=== PATIENT | male | born 1950 | race Caucasian/White ===

== ENCOUNTER 2017-09-22 20:05 | Inpatient (IN) | payer OTHER ==
[~2017-09-22] VITALS: Ht 180.3 cm; Wt 97.5 kg
[~2017-09-22 20:05] MED LIST: GABAPENTIN 100100 MG PO; HYDROCODONE-AP1 EACH PO; HYDROCODONE-APA1 TA1; IBUPROFEN 800800 M1 PO; MICARDIS 80 MG80 MG PO
[2017-09-22 20:13] VITALS: BP 153/68
[2017-09-22 20:47] LABS: HEMOGLOBIN 14.5 gm/dL (14.0-18.0); MCH 32.9 pg (26.0-34.0); MCHC 35.4 g/dL (28.0-37.0); MPV 7.6 fl. (7.2-11.1); NUCLEATED RBCS 0 /100WBC; PLATELET COUNT* 231 thou/uL (150-400); RBC 4.41 mil/uL (4.50-6.00); RDW-CV 13.9 % (10.5-14.5); WBC 10.4 thou/uL (4.0-11.0)
[2017-09-22 20:54] LABS: CALCIUM 9.2 mg/dL (8.5-10.1); CREATININE 0.9 mg/dL (0.6-1.3); POTASSIUM 3.6 mmol/L (3.5-5.1)
[2017-09-22 20:59] LABS: ALBUMIN 3.7 g/dL (3.4-5.0); TOTAL BILIRUBIN 0.8 mg/dL (<0.1-1.0); TOTAL PROTEIN 7.6 g/dL (6.4-8.2)
[2017-09-22 21:02] LABS: ABSOLUTE LYMPHOCYTES 0.4 thou/uL (0.8-5.3); ABSOLUTE MONOCYTES 1.1 thou/uL (0.0-1.2); ABSOLUTE NEUTROPHILS 8.8 thou/uL (1.6-8.1); ATYPICAL LYMPHS 1 %; PLATELET ESTIMATE ADEQUATE
[2017-09-22 21:03] LABS: INFLUENZA A ANTIGEN None Detected (None Detect); INFLUENZA B ANTIGEN None Detected (None Detect)
[2017-09-22 22:45] VITALS: BP 131/56
[2017-09-22 23:00] VITALS: BP 141/53
--- NOTE | 2017-09-23 02:54 | NUR ---
2300: ALERT AND ORIENTED X 4 MALE PATIENT TO BED 103 BY CART FROM ER ACCOMPANIED BY IN STABLE CONDITION. INDEPENDENT FROM CART TO BED. USED URINAL INDEPENDENTLY ON ARRIVAL. VITAL SIGNS STABLE ON O2 AT 2L/MIN. NOTED DRESSING LLE WITH COMPRESSIN SOCK FOR CHRONIC WOUND. PATIENT DECLINES AT THIS TIME TO HAVE DRESSING REMOVED FOR PHOTO. ADMISSION ROUTINES IN PROGRESS. CONTINUE TO MONITOR.
--- NOTE | 2017-09-23 04:22 | NUR ---
PATIENT HAS REMAINED ALERT AND ORIENTED X 4 THROUGHOUT THE SHIFT AND RESTING QUIETLY ON HOURLY ROUNDS. PATIENT HAS CHRONIC LEFT LEG PAIN. MEDICATED Q2H WITH SOME GOOD EFFECT. IVF'S AND MEDS PER ORDERS. CONTINUE TO MONITOR.
[2017-09-23 08:04] VITALS: BP 124/50
[2017-09-23 16:00] VITALS: BP 128/48
--- NOTE | 2017-09-23 16:19 | NUR ---
SPOKE WITH PT.BRIEFLY. JOSÉ, WOUND CARE NURSE CAME INTO ASSESS WOUND. PT.SAID HE LIVES WITH HIS . SHE CAN ASSIST HIM IF NEEDED BUT HE IS USUALLY INDEPENDENT. HE HAS A CANE AND WALKER AT HOME. NO HOME O2. HE MAY BE INTERESTED IN COMING TO OUR WOUND CARE CENTER TO SEE FOR CHRONIC LE WOUND. (SEE WOUND CARE NOTE).
--- NOTE | 2017-09-23 16:36 | NUR ---
WOUND NURSE: PATIENT SEEN TO ADDRESS VENOUS LEG ULCER PRESENT ON THE LLE. THIS WOUND PRESENTED WITH 50% SLOUGH AND 50% RED GRANULATION TISSUE IN THE WOUND BED, MODERATE AMOUNT OF YELLOW [place] DRAINAGE. WOUND WAS CLEANSED WI SOAP AND WATER, RINSED WITH WATER, THEN PATTED DRY. APPLIED AQUACEL AG UDNER OPTIFOAM GENTLE, THEN REAPPLIED PATIENT'S OWN COMPRESSION STOCKING. PATIENT WAS ENCOURAGED TO SEEK WOUND CARE CLINIC ASSISTANCE WITH THIS WOUND UPON DISCHARGE. WOUND MEASURED: 9.0 X 2.5 X 0.3 CM.
--- NOTE | 2017-09-23 17:09 | NUR ---
ASSUMED CARE OF PATIENT AFTER MORNING REPORT. ALERT AND ORIENTED X4. ASSESSMENT COMPLETED AND CHARTED. VSS ON 2 LITERS. PATIENT HAS HAD NO COMPLAINTS OF NAUSEA THIS SHIFT. PAIN HAS BEEN MANAGED WITH MEDICATION. WOUND NURSE CHANGED DRESSING ON LEFT LOWER EXTREMITY AND PICTURE DOCUMENTATION WAS RECORDED. HOURLY ROUNDS HAVE BEEN MAINTAINED. CALL LIGHT IS WITHIN REACH. NURSING WILL CONTINUE TO MONITOR.
[2017-09-23 20:15] VITALS: BP 134/48
[2017-09-23 22:58] LABS: AMP/METHAMP Negative (Negative); BARBITURATES Negative (Negative); BENZODIAZEPINES Negative (Negative); COCAINE Negative (Negative); METHADONE Negative (Negative); OPIATES POSITIVE (Negative); PCP Negative (Negative); THC Negative (Negative)
[2017-09-24 00:24] VITALS: BP 105/51
[2017-09-24 04:26] LABS: ABSOLUTE LYMPHOCYTES 0.7 thou/uL (0.8-5.3); ABSOLUTE MONOCYTES 0.8 thou/uL (0.0-1.2); ABSOLUTE NEUTROPHILS 12.6 thou/uL (1.6-8.1); BASOPHILS 0.1 %; HEMATOCRIT 37.3 % (42.0-52.0); HEMOGLOBIN 12.8 gm/dL (14.0-18.0); LYMPHOCYTES 5.2 %; MCH 32.4 pg (26.0-34.0); MCHC 34.3 g/dL (28.0-37.0); MCV 94.3 fL (80.0-100.0); MONOCYTES 5.8 %; NUCLEATED RBCS 0 /100WBC; PLATELET COUNT* 216 thou/uL (150-400); POLYS 88.9 %; RBC 3.96 mil/uL (4.50-6.00); RDW-CV 14.4 % (10.5-14.5); WBC 14.1 thou/uL (4.0-11.0)
[2017-09-24 04:37] LABS: CALCIUM 8.4 mg/dL (8.5-10.1); CREATININE 0.9 mg/dL (0.6-1.3); POTASSIUM 4.1 mmol/L (3.5-5.1)
--- NOTE | 2017-09-24 05:11 | NUR ---
PATIENT HAS REMAINED ALERT AND ORIENTED X 4 THROUGHOUT THE SHIFT AND RESTING QUIETLY ON HOURLY ROUNDS. MEDICATED FOR LLE WOUND PAIN Q4H TO GOOD EFFECT. IVF'S AND MEDS PER ORDERS. REMAINS ON O2 AT 2L/MIN WITH RT TREATMENTS. OCCASIONAL NON-PRODUCTIVE COUGH NOTED. AFEBRILE. PULMONARY CONSULT PENDING. CONTINUE TO MONITOR.
[2017-09-24 08:11] VITALS: BP 116/60
[2017-09-24 16:19] VITALS: BP 121/54
--- NOTE | 2017-09-24 18:30 | NUR ---
ASSUMED CARE OF PATIENT AFTER MORNING REPORT. ALERT AND ORIENTED X4. ASSESSMENT COMPLETED AND CHARTED. VSS ON 1.5 LITERS 02. PATIENT HAS HAD NO COMPLAINTS OF NAUSEA THIS SHIFT. PAIN HAS BEEN MANAGED WITH PAIN MEDICATION. PATIENT TITRATED OFF OF OXYGEN AND IS MAINTAINING OXYGEN SATURATION IN THE LOW 90'S. PATIENT RESTED COMFORTABLY IN BED THROUGHOUT SHIFT. EAGER TO DISCHEGE HOME. PATIENT WILL BE NPO AFTER MIDNIGHT FOR AN ABDOMINAL ULTRASOUND TOMORROW. HOURLY ROUNDS HAVE BEEN MAINTAINED. CALL LIGHT IS WITHIN REACH. NURSING WILL CONTINUE TO MONITOR.
[2017-09-24 20:00] VITALS: BP 150/53
[2017-09-24 23:51] VITALS: BP 111/54
[2017-09-25 04:19] LABS: HEMATOCRIT 36.9 % (42.0-52.0); HEMOGLOBIN 12.7 gm/dL (14.0-18.0); MCH 32.3 pg (26.0-34.0); MCHC 34.3 g/dL (28.0-37.0); MCV 94.2 fL (80.0-100.0); MPV 8.4 fl. (7.2-11.1); RBC 3.91 mil/uL (4.50-6.00); RDW-CV 14.2 % (10.5-14.5); WBC 12.9 thou/uL (4.0-11.0)
[2017-09-25 04:41] LABS: ALBUMIN 2.8 g/dL (3.4-5.0); CALCIUM 8.4 mg/dL (8.5-10.1); CREATININE 0.8 mg/dL (0.6-1.3); MAGNESIUM 2.5 mg/dL (1.8-2.4); POTASSIUM 4.3 mmol/L (3.5-5.1); TOTAL BILIRUBIN 0.4 mg/dL (<0.1-1.0); TOTAL PROTEIN 6.1 g/dL (6.4-8.2)
--- NOTE | 2017-09-25 05:01 | NUR ---
ASSUMED CARE OF PATIENT AT APPROXIMATELY 1999. PATIENT A/O X 4 AND VSS. PATIENT HAS EXPRESSED CONCERNS THAT HE WILL NOT BE ABLE TO GO HOME RELATIVELY EARLY TODAY. HE IS CONCERNED THAT HIS ABDOMINAL US WILL DELAY HIS DISCHARGE. PATIENT HAS SEVERAL RESPONSIBILITIES AT HOME THAT REQUIRE HIS ATTENTION AND HE VERBALIZES THAT HE IS NOT HAVING PAIN SIMILAR TO THAT WITH KIDNEY STONES. PATIENT STATES THAT HE WILL LEAVE, AMA IF NECESSARY. PATIENT CONTINUES TO BE ON 2L O2 WITH OXYGEN SATS GREATER THAN 93%. PATIENT TO DO DRESSING CHANGE TODAY (09/25/17), PER HIS PREFERENCE, ON WOUND TO LEFT LEG/ANKLE AREA. PATIENT CONTINUES TO WEAR A MASK, ALTHOUGH NOT ON ANY ISOLATION PRECAUTIONS. NURSING TO FOLLOW-UP NECESSARY. ALL FALL PRECAUTIONS IN PLACE, INCLUDING CALL LIGHT WITHIN REACH. WILL CONTINUE TO MONITOR CLOSELY.
[2017-09-25 07:58] VITALS: BP 125/56
[2017-09-25 11:19] VITALS: BP 125/56
[2017-09-25] MEDS ORDERED: TAMIFLU75 MG PO (11:25)
[2017-09-25] MEDS ORDERED: LEVAQUIN 500 M500 M2 PO (11:26)
[2017-09-25] MEDS ORDERED: PREDNISONE 20 M20 MG PO (11:28)
[2017-09-25] MEDS ORDERED: PROTONIX40 M1 PO (11:29)
--- NOTE | 2017-09-25 11:56 | NUR ---
ASSUMED CARE OF PATIENT AFTER MORNING REPORT. ALERT AND ORIENTED X4. ASSESSMENT COMPLETED AND CHARTED. VSS ON ROOM AIR. PATIENT HAD NO COMPLAINTS OF NAUSEA THIS SHIFT. PAIN HAS BEEN MANAGED WITH PAIN MEDICATION. PATIENTS PULMONARY STATUS HAS BEEN IMPROVING AND HAS BEEN RELEASED BY PULMONARY. PATIENT DISCHARGED AT 1150 WITH FAMILY. ALL PERSONAL BELONGINGS LEFT WITH PATIENT. PRESCRIPTIONS AND DISCHARGE INFORMATION SENT WITH PATIENT UPON DISCHARGE.
--- NOTE | 2017-09-26 09:42 | CON ---
[address] [address] CONSULTATION Name: CARLOTTA PIEDRA Room: [address] IN .R.#: [id number] Admission: 09/22/17 Attend Phys: Omar Crook Discharge: 09/25/17 Date of : 54 Report #: [id number] THIS REPORT FOR: //name// CC: Jeremiah Samuels DATE OF SERVICE: 09/24/[address] Love. INDICATION FOR CONSULTATION: Lung nodule. HISTORY OF PRESENT ILLNESS: This is a 67-year-old gentleman, past medical history consistent with COPD. The patient has not previously been diagnosed. The patient is an active smoker. At this time, the patient is here with a viral illness. He has had increase in coughing as well as nasal discharge. He has also had bodyaches. He also had low-grade elevation in temperature to 37.4 degrees Celsius when he initially arrived. The patient had a CTA chest performed on initial presentation, which does show lung nodule which is the reason for this consultation. At this time, the patient reports improvement in his cough as well as nasal discharge compared with his baseline; however, continues to have these complaints. He has some shortness of breath on exertion as well. However, is not complaining of shortness of breath at rest. He is no longer febrile. There is no swelling of lower extremities. There is no calf pain. He is not complaining of nausea, vomiting or abdominal pain. The patient does have chronic leg wounds and has had chronic pain issues. He has no chest pain. REVIEW OF SYSTEMS: This is as discussed above in history of present illness. PAST MEDICAL HISTORY: COPD by clinical history, not previously diagnosed; hypertension. The patient also does take p.r.n. narcotics for pain at home, ankle surgeries, tonsillectomy. There are other orthopedic surgeries noted in his admission H and P reviewed. He had a vein closed for his left leg, hepatitis C. SOCIAL HISTORY: Active smoker, 1 pack a day, several decades. No known history of heavy alcohol use or illegal drug use. CURRENT MEDICATIONS: List in [employer] reviewed. ALLERGIES: No known drug allergies. PHYSICAL EXAMINATION: GENERAL: He is alert, awake and oriented. VITAL SIGNS: In the records. These are reviewed. [place] [address] CONSULTATION Name: PIEDRA,CARLOTTA Nelson Room: [address]#: [id number] Admission: 09/22/17 Attend Phys: Omar Crook Discharge: 09/25/17 Date of : 54 Report #: [id number] 93%. He is on 1.5 liters nasal cannula. The patient is not on supplemental oxygen at home. NECK: Does not show raised JVP. CHEST: Breath sounds are bilaterally equal, decreased. No added sounds. HEART: Regular, no murmur. ABDOMEN: Soft and nontender. EXTREMITIES: Lower extremities, no edema, no calf tenderness. LABORATORY DATA: The patient's CT chest, chest x-ray as well as [facility] and this is reviewed. ASSESSMENT AND PLAN: 1. Lung nodule. There is a 1.5 cm noncalcified lung nodule noted in the left lower lobe. Certainly this raises the possibility of a malignancy and may require a biopsy. I recommend scheduling an outpatient PET scan at [facility] to evaluate this further. The patient reported that he has had CT chest performed at this hospital previously; however, I do not see record of any previous CAT scan of the chest performed at this hospital for this patient. He is also reported that he has had CAT scans done at another facility, possibly [facility], however, I do not have verification at this time. There is a previous CT of the abdomen and pelvis performed in this hospital in 2014. This lung nodule is not mentioned on the CT and likely the previous CT does not go high enough to detect this lung nodule. In summary, therefore, unless there is previous documentation of long-term stability of this nodule by CT chest, I recommend that we should do a PET scan as an outpatient to evaluate this further as certainly this could be a malignancy and may require a biopsy. 2. Viral respiratory tract infection/possible influenza. Certainly various viruses could cause this illness. The possibility of influenza still does need to be considered despite negative influenza swab and therefore, I recommend that we proceed with a viral respiratory panel. Meanwhile, I do recommend that the patient be placed in droplet isolation and started on Tamiflu. 3. Chronic obstructive pulmonary disease exacerbation. I agree with current therapy. Considering that the patient still is requiring supplemental oxygen and he has not previously been diagnosed with chronic obstructive pulmonary disease or been on oxygen as well as the fact that he still has some findings on examination consistent with bronchospasm, I favor keeping him in the hospital today with possible discharge tomorrow if he continues to improve. The patient, however, really wants to be discharged today. Therefore, I would go ahead and do an ambulatory pulse ox today and then see where we stand. I also suggest obtaining outpatient pulmonary function test. <ELECTRONICALLY SIGNED> By: Vi Christie MD 09/26/17 0942 1316 184MD sonya Aleman
== END 2017-09-25 11:50 | disposition home or self-care (01) | DRG 871 ==
LOC: M.ERS 20:05 → M.TBA-ER 22:12 → M.ORTHSURG 22:12
PROVIDERS: Family Medicine; Internal Medicine; Physician Assistant; ADMIT Internal Medicine
DX: A41.89 Other specified sepsis (principal); J96.01 Acute respiratory failure with hypoxia; J44.0 Chronic obstructive pulmonary disease with (acute) lower respiratory infection; J44.1 Chronic obstructive pulmonary disease with (acute) exacerbation; B34.9 Viral infection, unspecified; J20.9 Acute bronchitis, unspecified; I10 Essential (primary) hypertension; F17.210 Nicotine dependence, cigarettes, uncomplicated; R91.1 Solitary pulmonary nodule; M19.90 Unspecified osteoarthritis, unspecified site; G89.29 Other chronic pain; Z90.49 Acquired absence of other specified parts of digestive tract; Z89.9 Acquired absence of limb, unspecified

== ENCOUNTER → 2017-10-12 | Outpatient (CLI) | payer OTHER ==
[~2017-10-12] MED LIST changes: +ASPIR 8181 MG PO; +AZITHROMYCIN 2250 MG PO; +CEFDINIR300 MG PO; +DILTIAZEM 24HR180 M1 PO; +DILTIAZEM 24HR360 M1 PO; +ELIQUIS5 MG PO; +FLECAINIDE ACET50 M1 PO; +LEVAQUIN 500 M500 M2 PO; +LIDOPATCH1 EACH TOP; +MUCINEX600 MG PO; +PREDNISONE 10 M10 M1 PO; +PREDNISONE 20 M20 MG PO; +PROTONIX40 M1 PO; +TAMIFLU75 MG PO; +TRAMADOL 50 MG50 MG PO
[2017-10-12 09:34] LABS: CREATININE 0.9 mg/dL (0.6-1.3); POTASSIUM 3.8 mmol/L (3.5-5.1)
== END ==
LOC: M.WC 01:22
PROVIDERS: Surgery
DX: I70.243 Atherosclerosis of native arteries of left leg with ulceration of ankle (principal); I87.312 Chronic venous hypertension (idiopathic) with ulcer of left lower extremity; L97.821 Non-pressure chronic ulcer of other part of left lower leg limited to breakdown of skin; J44.9 Chronic obstructive pulmonary disease, unspecified; F17.210 Nicotine dependence, cigarettes, uncomplicated; Z86.19 Personal history of other infectious and parasitic diseases

== ENCOUNTER → 2017-10-26 | Outpatient (CLI) | payer OTHER | LOC: M.WC 01:44 | DX: I87.2 Venous insufficiency (chronic) (peripheral) (principal); L97.821 Non-pressure chronic ulcer of other part of left lower leg limited to breakdown of skin; J44.9 Chronic obstructive pulmonary disease, unspecified; I10 Essential (primary) hypertension; F17.200 Nicotine dependence, unspecified, uncomplicated ==

== ENCOUNTER → 2017-11-02 | Outpatient (CLI) | payer OTHER | LOC: M.WC 01:34 | DX: I70.243 Atherosclerosis of native arteries of left leg with ulceration of ankle (principal); L97.821 Non-pressure chronic ulcer of other part of left lower leg limited to breakdown of skin; J44.9 Chronic obstructive pulmonary disease, unspecified; I10 Essential (primary) hypertension; F17.200 Nicotine dependence, unspecified, uncomplicated ==

== ENCOUNTER → 2017-11-09 | Outpatient (CLI) | payer OTHER | LOC: M.WC 03:21 | DX: L97.821 Non-pressure chronic ulcer of other part of left lower leg limited to breakdown of skin (principal); I87.312 Chronic venous hypertension (idiopathic) with ulcer of left lower extremity; L97.321 Non-pressure chronic ulcer of left ankle limited to breakdown of skin; I70.243 Atherosclerosis of native arteries of left leg with ulceration of ankle; I10 Essential (primary) hypertension; L84 Corns and callosities; G62.9 Polyneuropathy, unspecified; J44.9 Chronic obstructive pulmonary disease, unspecified; F17.298 Nicotine dependence, other tobacco product, with other nicotine-induced disorders; Z96.653 Presence of artificial knee joint, bilateral ==

== ENCOUNTER → 2017-11-16 | Outpatient (CLI) | payer OTHER | LOC: M.WC 04:44 | DX: I70.243 Atherosclerosis of native arteries of left leg with ulceration of ankle (principal); I87.312 Chronic venous hypertension (idiopathic) with ulcer of left lower extremity; L97.821 Non-pressure chronic ulcer of other part of left lower leg limited to breakdown of skin; F17.210 Nicotine dependence, cigarettes, uncomplicated; J44.9 Chronic obstructive pulmonary disease, unspecified ==

== ENCOUNTER → 2017-11-23 | Outpatient (CLI) | payer OTHER | LOC: M.WC 01:53 | DX: I70.243 Atherosclerosis of native arteries of left leg with ulceration of ankle (principal); L97.821 Non-pressure chronic ulcer of other part of left lower leg limited to breakdown of skin; F17.210 Nicotine dependence, cigarettes, uncomplicated; J44.9 Chronic obstructive pulmonary disease, unspecified; I10 Essential (primary) hypertension; Z68.29 Body mass index [BMI] 29.0-29.9, adult ==

== ENCOUNTER → 2017-11-28 | Outpatient (CLI) | payer OTHER | LOC: M.WC 00:48 | DX: I87.312 Chronic venous hypertension (idiopathic) with ulcer of left lower extremity (principal); L97.821 Non-pressure chronic ulcer of other part of left lower leg limited to breakdown of skin; I70.243 Atherosclerosis of native arteries of left leg with ulceration of ankle; G62.9 Polyneuropathy, unspecified; J44.9 Chronic obstructive pulmonary disease, unspecified; F17.200 Nicotine dependence, unspecified, uncomplicated; Z96.653 Presence of artificial knee joint, bilateral; Z68.29 Body mass index [BMI] 29.0-29.9, adult ==

== ENCOUNTER → 2017-11-30 | Outpatient (CLI) | payer OTHER | LOC: M.WC 01:52 | DX: I70.243 Atherosclerosis of native arteries of left leg with ulceration of ankle (principal); I87.312 Chronic venous hypertension (idiopathic) with ulcer of left lower extremity; L97.821 Non-pressure chronic ulcer of other part of left lower leg limited to breakdown of skin; F17.210 Nicotine dependence, cigarettes, uncomplicated; Z68.29 Body mass index [BMI] 29.0-29.9, adult; J44.9 Chronic obstructive pulmonary disease, unspecified; F17.200 Nicotine dependence, unspecified, uncomplicated ==

== ENCOUNTER → 2017-12-02 | Outpatient (CLI) | payer OTHER | LOC: M.WC 01:27 | DX: I70.243 Atherosclerosis of native arteries of left leg with ulceration of ankle (principal); L97.821 Non-pressure chronic ulcer of other part of left lower leg limited to breakdown of skin; F17.200 Nicotine dependence, unspecified, uncomplicated; Z68.29 Body mass index [BMI] 29.0-29.9, adult; J44.9 Chronic obstructive pulmonary disease, unspecified; I10 Essential (primary) hypertension ==

== ENCOUNTER → 2017-12-05 | Outpatient (CLI) | payer OTHER | LOC: M.WC 02:21 | DX: I70.243 Atherosclerosis of native arteries of left leg with ulceration of ankle (principal); L97.821 Non-pressure chronic ulcer of other part of left lower leg limited to breakdown of skin; F17.200 Nicotine dependence, unspecified, uncomplicated; Z68.29 Body mass index [BMI] 29.0-29.9, adult; J44.9 Chronic obstructive pulmonary disease, unspecified; Z86.19 Personal history of other infectious and parasitic diseases ==

== ENCOUNTER → 2017-12-07 | Outpatient (CLI) | payer OTHER | LOC: M.WC 02:21 | DX: I70.243 Atherosclerosis of native arteries of left leg with ulceration of ankle (principal); L97.821 Non-pressure chronic ulcer of other part of left lower leg limited to breakdown of skin; F17.210 Nicotine dependence, cigarettes, uncomplicated; Z68.29 Body mass index [BMI] 29.0-29.9, adult; J44.9 Chronic obstructive pulmonary disease, unspecified; I10 Essential (primary) hypertension ==

== ENCOUNTER → 2017-12-09 | Outpatient (CLI) | payer OTHER | LOC: M.WC 02:08 | DX: I70.243 Atherosclerosis of native arteries of left leg with ulceration of ankle (principal); I87.312 Chronic venous hypertension (idiopathic) with ulcer of left lower extremity; L97.821 Non-pressure chronic ulcer of other part of left lower leg limited to breakdown of skin; F17.210 Nicotine dependence, cigarettes, uncomplicated; Z68.29 Body mass index [BMI] 29.0-29.9, adult; J44.9 Chronic obstructive pulmonary disease, unspecified ==

== ENCOUNTER → 2017-12-12 | Outpatient (CLI) | payer OTHER | LOC: M.WC 01:17 | DX: I70.243 Atherosclerosis of native arteries of left leg with ulceration of ankle (principal); I87.312 Chronic venous hypertension (idiopathic) with ulcer of left lower extremity; L97.821 Non-pressure chronic ulcer of other part of left lower leg limited to breakdown of skin; F17.210 Nicotine dependence, cigarettes, uncomplicated; Z68.29 Body mass index [BMI] 29.0-29.9, adult; J44.9 Chronic obstructive pulmonary disease, unspecified ==

== ENCOUNTER → 2017-12-14 | Outpatient (CLI) | payer OTHER | LOC: M.WC 00:28 | DX: I70.243 Atherosclerosis of native arteries of left leg with ulceration of ankle (principal); I87.312 Chronic venous hypertension (idiopathic) with ulcer of left lower extremity; L97.821 Non-pressure chronic ulcer of other part of left lower leg limited to breakdown of skin; F17.210 Nicotine dependence, cigarettes, uncomplicated; Z68.29 Body mass index [BMI] 29.0-29.9, adult; J44.9 Chronic obstructive pulmonary disease, unspecified ==

== ENCOUNTER → 2017-12-16 | Outpatient (CLI) | payer OTHER | LOC: M.WC 00:38 | DX: I70.243 Atherosclerosis of native arteries of left leg with ulceration of ankle (principal); I87.312 Chronic venous hypertension (idiopathic) with ulcer of left lower extremity; L97.821 Non-pressure chronic ulcer of other part of left lower leg limited to breakdown of skin; F12.10 Cannabis abuse, uncomplicated; Z68.29 Body mass index [BMI] 29.0-29.9, adult; J44.9 Chronic obstructive pulmonary disease, unspecified; F17.200 Nicotine dependence, unspecified, uncomplicated ==

== ENCOUNTER → 2017-12-19 | Outpatient (CLI) | payer OTHER | LOC: M.WC 02:06 | DX: I87.312 Chronic venous hypertension (idiopathic) with ulcer of left lower extremity (principal); L97.821 Non-pressure chronic ulcer of other part of left lower leg limited to breakdown of skin; I70.243 Atherosclerosis of native arteries of left leg with ulceration of ankle; G62.9 Polyneuropathy, unspecified; J44.9 Chronic obstructive pulmonary disease, unspecified; F17.298 Nicotine dependence, other tobacco product, with other nicotine-induced disorders; Z96.653 Presence of artificial knee joint, bilateral; Z68.29 Body mass index [BMI] 29.0-29.9, adult ==

== ENCOUNTER → 2017-12-21 | Outpatient (CLI) | payer OTHER | LOC: M.WC 02:46 | DX: I70.243 Atherosclerosis of native arteries of left leg with ulceration of ankle (principal); I87.312 Chronic venous hypertension (idiopathic) with ulcer of left lower extremity; L97.821 Non-pressure chronic ulcer of other part of left lower leg limited to breakdown of skin; F17.210 Nicotine dependence, cigarettes, uncomplicated; J44.9 Chronic obstructive pulmonary disease, unspecified; Z68.29 Body mass index [BMI] 29.0-29.9, adult ==

== ENCOUNTER → 2017-12-23 | Outpatient (CLI) | payer OTHER | LOC: M.WC 01:36 | DX: I87.312 Chronic venous hypertension (idiopathic) with ulcer of left lower extremity (principal); I70.243 Atherosclerosis of native arteries of left leg with ulceration of ankle; L97.821 Non-pressure chronic ulcer of other part of left lower leg limited to breakdown of skin; F17.210 Nicotine dependence, cigarettes, uncomplicated; J44.9 Chronic obstructive pulmonary disease, unspecified; Z68.29 Body mass index [BMI] 29.0-29.9, adult ==

== ENCOUNTER → 2017-12-26 | Outpatient (CLI) | payer OTHER | LOC: M.WC 01:36 | DX: I87.312 Chronic venous hypertension (idiopathic) with ulcer of left lower extremity (principal); I70.243 Atherosclerosis of native arteries of left leg with ulceration of ankle; L97.821 Non-pressure chronic ulcer of other part of left lower leg limited to breakdown of skin; F17.210 Nicotine dependence, cigarettes, uncomplicated; J44.9 Chronic obstructive pulmonary disease, unspecified; Z68.29 Body mass index [BMI] 29.0-29.9, adult ==

== ENCOUNTER → 2017-12-28 | Outpatient (CLI) | payer OTHER | LOC: M.WC 03:02 | DX: I87.312 Chronic venous hypertension (idiopathic) with ulcer of left lower extremity (principal); L97.821 Non-pressure chronic ulcer of other part of left lower leg limited to breakdown of skin; I70.243 Atherosclerosis of native arteries of left leg with ulceration of ankle; I87.2 Venous insufficiency (chronic) (peripheral); I10 Essential (primary) hypertension; G62.9 Polyneuropathy, unspecified; J44.9 Chronic obstructive pulmonary disease, unspecified; F17.200 Nicotine dependence, unspecified, uncomplicated; Z96.653 Presence of artificial knee joint, bilateral ==

== ENCOUNTER → 2017-12-30 | Outpatient (CLI) | payer OTHER | LOC: M.WC 03:02 | DX: I87.312 Chronic venous hypertension (idiopathic) with ulcer of left lower extremity (principal); L97.821 Non-pressure chronic ulcer of other part of left lower leg limited to breakdown of skin; I70.243 Atherosclerosis of native arteries of left leg with ulceration of ankle; G62.9 Polyneuropathy, unspecified; J44.9 Chronic obstructive pulmonary disease, unspecified; F17.200 Nicotine dependence, unspecified, uncomplicated; Z96.653 Presence of artificial knee joint, bilateral ==

== ENCOUNTER → 2018-01-02 | Outpatient (CLI) | payer OTHER | LOC: M.WC 01:45 | DX: I87.312 Chronic venous hypertension (idiopathic) with ulcer of left lower extremity (principal); L97.822 Non-pressure chronic ulcer of other part of left lower leg with fat layer exposed; G62.9 Polyneuropathy, unspecified; F17.200 Nicotine dependence, unspecified, uncomplicated; J44.9 Chronic obstructive pulmonary disease, unspecified; Z96.653 Presence of artificial knee joint, bilateral ==

== ENCOUNTER → 2018-01-04 | Outpatient (CLI) | payer OTHER | LOC: M.WC 04:24 | DX: I87.312 Chronic venous hypertension (idiopathic) with ulcer of left lower extremity (principal); L97.821 Non-pressure chronic ulcer of other part of left lower leg limited to breakdown of skin; I70.243 Atherosclerosis of native arteries of left leg with ulceration of ankle; J44.9 Chronic obstructive pulmonary disease, unspecified; I10 Essential (primary) hypertension; G62.9 Polyneuropathy, unspecified; F17.200 Nicotine dependence, unspecified, uncomplicated; Z96.653 Presence of artificial knee joint, bilateral ==

== ENCOUNTER → 2018-01-06 | Outpatient (CLI) | payer OTHER | LOC: M.WC 01:40 | DX: I87.312 Chronic venous hypertension (idiopathic) with ulcer of left lower extremity (principal); L97.821 Non-pressure chronic ulcer of other part of left lower leg limited to breakdown of skin; I70.243 Atherosclerosis of native arteries of left leg with ulceration of ankle; I10 Essential (primary) hypertension; G62.9 Polyneuropathy, unspecified; J44.9 Chronic obstructive pulmonary disease, unspecified; F17.200 Nicotine dependence, unspecified, uncomplicated; Z96.653 Presence of artificial knee joint, bilateral ==

== ENCOUNTER → 2018-01-09 | Outpatient (CLI) | payer OTHER | LOC: M.WC 00:05 | DX: I87.312 Chronic venous hypertension (idiopathic) with ulcer of left lower extremity (principal); L97.821 Non-pressure chronic ulcer of other part of left lower leg limited to breakdown of skin; I70.243 Atherosclerosis of native arteries of left leg with ulceration of ankle; I10 Essential (primary) hypertension; G62.9 Polyneuropathy, unspecified; J44.9 Chronic obstructive pulmonary disease, unspecified; F17.200 Nicotine dependence, unspecified, uncomplicated; Z96.653 Presence of artificial knee joint, bilateral ==

== ENCOUNTER → 2018-01-11 | Outpatient (CLI) | payer OTHER | LOC: M.WC 02:48 | DX: I70.243 Atherosclerosis of native arteries of left leg with ulceration of ankle (principal); I87.312 Chronic venous hypertension (idiopathic) with ulcer of left lower extremity; L97.821 Non-pressure chronic ulcer of other part of left lower leg limited to breakdown of skin; J44.9 Chronic obstructive pulmonary disease, unspecified; I10 Essential (primary) hypertension; F17.200 Nicotine dependence, unspecified, uncomplicated ==

== ENCOUNTER 2018-01-13 08:35 | Inpatient (IN) | payer OTHER ==
[~2018-01-13] VITALS: Ht 180.3 cm; Wt 99.8 kg
[~2018-01-13 08:35] MED LIST changes: -ASPIR 8181 MG PO; -AZITHROMYCIN 2250 MG PO; -CEFDINIR300 MG PO; -DILTIAZEM 24HR180 M1 PO; -DILTIAZEM 24HR360 M1 PO; -ELIQUIS5 MG PO; -FLECAINIDE ACET50 M1 PO; -LIDOPATCH1 EACH TOP; -MUCINEX600 MG PO; -PREDNISONE 10 M10 M1 PO; -TRAMADOL 50 MG50 MG PO
[2018-01-13 13:31] LABS: ABSOLUTE BASOPHILS 0.1 thou/uL (0.0-0.2); ABSOLUTE EOSINOPHILS 0.4 thou/uL (0.0-0.7); ABSOLUTE LYMPHOCYTES 2.1 thou/uL (0.8-5.3); ABSOLUTE MONOCYTES 0.6 thou/uL (0.0-1.2); ABSOLUTE NEUTROPHILS 2.5 thou/uL (1.6-8.1); BASOPHILS 1.4 %; EOSINOPHILS 6.7 %; HEMATOCRIT 40.9 % (42.0-52.0); HEMOGLOBIN 14.3 gm/dL (14.0-18.0); LYMPHOCYTES 37.7 %; MCV 94.5 fL (80.0-100.0); MONOCYTES 10.9 %; MPV 7.4 fl. (7.2-11.1); NUCLEATED RBCS 0 /100WBC; PLATELET COUNT* 254 thou/uL (150-400); POLYS 43.3 %; RBC 4.33 mil/uL (4.50-6.00); RDW-CV 13.9 % (10.5-14.5); WBC 5.7 thou/uL (4.0-11.0)
[2018-01-13 13:38] LABS: CREATININE 0.7 mg/dL (0.6-1.3); POTASSIUM 4.1 mmol/L (3.5-5.1)
[2018-01-13 14:48] VITALS: BP 147/74
--- NOTE | 2018-01-13 15:16 | EKG ---
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 Marketing: 29 : 1950 Requested By: Vince Durán Order Number: [id number] Savanah MD: Emiliano Webb Measurements Intervals [place] Rate: 60 P: 62 SC: 141 QRS: 66 QRSD: 81 T: 60 QT: 408 QTc: 408 Interpretive Statements Sinus rhythm Lead(s) aVL were not used for morphology analysis Compared to ECG 04/29/2015 23:38:26 No significant changes Electronically Signed On 01-13-2018 15:16:35 CDT by Emiliano Webb [email or web address] <ELECTRONICALLY SIGNED> By: Emiliano Webb MD, [facility] 01/13/18 1516 1328 1328 Emiliano Webb MD, [facility] /EPI
[2018-01-13 20:12] VITALS: BP 153/74
[2018-01-13 23:46] VITALS: BP 120/55
[2018-01-14 03:37] VITALS: BP 117/54
[2018-01-14 03:53] LABS: HEMATOCRIT 40.8 % (42.0-52.0); HEMOGLOBIN 14.2 gm/dL (14.0-18.0); MCH 33.2 pg (26.0-34.0); MCHC 34.9 g/dL (28.0-37.0); MPV 7.7 fl. (7.2-11.1); RBC 4.29 mil/uL (4.50-6.00); RDW-CV 13.6 % (10.5-14.5)
[2018-01-14 04:17] LABS: CALCIUM 8.4 mg/dL (8.5-10.1); CREATININE 0.9 mg/dL (0.6-1.3); MAGNESIUM 2.1 mg/dL (1.8-2.4); POTASSIUM 4.3 mmol/L (3.5-5.1)
--- NOTE | 2018-01-14 06:06 | NUR ---
PATIENT ARRIVED TO UNIT AT 2011 FROM PACU. ALERT AND ORIENTED. VITALS STABLE. RA. CAPNO IN PLACE. ORIENTED TO ROOM AND STAFF. POOR PAIN CONTROL, PHYSICIAN NOTIFIED ORDERS RECEIVED. CONTINUED TO RATE PAIN A 10/10 AFTER ALTERNATIVE MEDICATIONS HAD BEEN GIVEN. PHYSICIAN NOTIFIED A SECOND TIME THIS MORNING. ORDERS RECEIVED FOR DILUADID, WAITING FOR PHARMACY TO PUT ON NOV. LEFT LEG DRESSING C/D/I. WOUND VAC IN [place]. LEFT THIGH DONOR SITE DRESSING C/D/I. VOIDING ADEQUATELY USING URINAL. BEDREST. LEFT LEG ELEVATED ON PILLOW. DENIES NAUSEA. HOURLY ROUNDS. BED ALARM IN USE. NURSING WILL CONTINUE TO MONITOR.
[2018-01-14 08:00] VITALS: BP 126/65
[2018-01-14 15:27] VITALS: BP 127/57
--- NOTE | 2018-01-14 16:29 | NUR ---
PATIENT ALERT AND ORIENTED X 4. VITAL SIGNS STABLE ON ROOM AIR. IV PATENT AND SALINE LOCKED. DENIES NAUSEA. PAIN BEING MANAGED WITH PO AND IV PAIN MEDICATIONS. DRESSING TO LEFT LOWER LEG CLEAN, DRY, AND INTACT. WOUND VAC IN PLACE. DRESSING TO DONOR SITE ON LEFT UPPER THIGH DRY AND INTACT. FALL PRECAUTIONS IN PLACE AND BED ALARM ON. HOURLY ROUNDS MAINTAINED THROUGHOUT THE SHIFT. CALL LIGHT WITHIN REACH. NURSING WILL CONTINUE TO MONITOR.
[2018-01-14 20:00] VITALS: BP 131/61
[2018-01-14 23:58] VITALS: BP 120/46
[2018-01-15 03:43] VITALS: BP 148/71
--- NOTE | 2018-01-15 07:00 | NUR ---
Alert and oriented x 4. L leg in acewrap dressing and wound vac connected, which is running at 175mm. He has been controlled well with scheduled pain meds and prn pain med x 1. Vitals are stable. O2 sat 96% on roomair. He's bedrest. Voiding well. He slept intermittenly.
[2018-01-15 08:00] VITALS: BP 144/62
[2018-01-15] MEDS ORDERED: LIDOPATCH1 EACH TOP (09:22)
[2018-01-15] MEDS ORDERED: TRAMADOL 50 MG50 MG PO (09:22)
[2018-01-15] MEDS ORDERED: HYDROCODONE-AP1 EACH PO (09:22)
--- NOTE | 2018-01-15 09:58 | OP ---
[facility] [address] [place] [address] OPERATIVE REPORT Name: CARLOTTA PIEDRA Room: [address] IN .R.#: [id number] Admission: 01/13/18 Attend Phys: Omar Crook Discharge: Date of : 54 Report #: [id number] THIS REPORT FOR: //name// CC: Vince Samuels DATE OF SERVICE: 01/13/2018 PREOPERATIVE DIAGNOSIS: Venous stasis ulcer with prolonged wound healing, left lower extremity. POSTOPERATIVE DIAGNOSIS: Venous stasis ulcer with prolonged wound healing, left lower extremity. 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 PROCEDURE: 1. Preparation of skin graft, left thigh measuring 2 cm x 2 cm or 4 cm2. 2. Application of split thickness skin grafting, left ankle measuring 3 cm x 1.5 cm, totalling 4.5 cm2. 3. Application of negative pressure wound therapy. ESTIMATED BLOOD LOSS: Minimal. SPECIMEN: None. COMPLICATIONS: None. CONDITION: Stable. DISPOSITION: Floor. INDICATIONS FOR THE PROCEDURE AND CONSENT: The patient is a 67-year-old male with chronic venous insufficiency of the left lower extremity, had recurrent chronic ulceration of the left leg, has been followed in the wound care center with some improvement with wound VAC therapy and granulation tissue developing. Recommendation for split-thickness skin grafting was made. Risks and benefits were discussed, infection, bleeding, need for additional procedures including additional skin graft. The patient wished to proceed, was consented and scheduled. PROCEDURE IN DETAIL: After timeout was performed, the patient was placed in supine position with circumferential sterile prep and drape of left lower [address] [address] OPERATIVE REPORT Name: CARLOTTA PIEDRA Room: [address] IN [facility].#: [id number] Admission: 01/13/18 Attend Phys: Omar Crook Discharge: Date of : 54 Report #: [id number] extremity. The thigh was prepared with oil and I placed on a stretch using a sterile tongue blade. Dermatome was then applied to the skin. A short area of split-thickness skin graft was harvested at 0.018 thickness. An epinephrine-soaked gauze placed on the skin graft harvest site. The skin graft was then prepared on the back table using a 1.5:1 ratio mesher. The graft was meshed. Attention was then turned to the venous stasis ulcer, which was prepared using a 15 blade scalpel and removing all fibrin slough and debris from the wound bed. The graft was then applied and cut to fit and sutured in place with 4-0 Monocryl suture. The graft was then bolstered with Adaptic and wound VAC was applied. The patient tolerated the procedure well. Lap, needle and instrument counts were correct. A sterile Kerlix and Osvaldo compression was then applied. Sterile dressing was applied to the thigh. The patient tolerated the procedure well, was transferred to recovery in stable condition and transferred to the floor. <ELECTRONICALLY SIGNED> By: Vince Durán DO 01/15/18 0958 1113 [id number] Durán DO /nt
[2018-01-15 10:36] VITALS: BP 144/62
--- NOTE | 2018-01-15 11:00 | NUR ---
PATIENT HAD ORDER FOR HOME HEALTH AND PHYSICAL THERAPY CONSULT, PER DR. MIRELES. PATIENT STATED HE DID NOT WANT HOME HEALTH AND WAS NOT WILLING TO WAIT UNTIL 1PM FOR PHYSICAL THERAPY. PATIENT STATED HE NEEDED TO LEAVE BY 1130. CONTACTED AND SPOKE TO DR. BRADY AND HE STATED THAT HE DID NOT THINK PHYSICAL THERAPY, CRUTCHES, OR HOME HEALTH WERE NECESSARY. CONTACTED DR. MIRELES AND SHE WAS OKAY WITH THIS, WELL. CURRENTLY WORKING ON DISCHARGE PAPERWORK NOW.
[2018-01-15 11:12] VITALS: BP 144/62
[2018-01-15 11:31] VITALS: BP 144/62
--- NOTE | 2018-01-15 11:33 | NUR ---
PATIENT DISCHARGED FROM UNIT AT 1125. ALERT AND ORIENTED X 4. VITAL SIGNS STABLE ON ROOM AIR. AFEBRILE. PERRLA. UP WITH ASSIST OF ONE AND CRUTCHES. IV DISCONTINUED. DISCHARGE INSTRUCTIONS, MEDICATION INFORMATION, AND SCRIPTS GIVEN TO PATIENT. LEFT WITH ALL BELONGINGS. PATIENT LEFT VIA CAR WITH FRIEND.
[2018-01-15 11:37] VITALS: BP 144/62
== END 2018-01-15 11:25 | disposition home or self-care (01) | DRG 264 ==
LOC: M.PRE 08:35 → M.TBA 12:33 → M.PRE 12:45 → M.ORTHSURG 20:28
PROVIDERS: Internal Medicine; Surgery; ADMIT Internal Medicine
PROC: 0HBJXZZ Excision of Left Upper Leg Skin, External Approach (ICD-10-PCS; principal; 2018-01-13)
PROC: 0HRNX74 Replacement of Left Foot Skin with Autologous Tissue Substitute, Partial Thickness, External Approach (ICD-10-PCS; principal; 2018-01-13)
DX: I83.029 Varicose veins of left lower extremity with ulcer of unspecified site (principal); L97.929 Non-pressure chronic ulcer of unspecified part of left lower leg with unspecified severity; F17.210 Nicotine dependence, cigarettes, uncomplicated; G62.9 Polyneuropathy, unspecified; Z88.6 Allergy status to analgesic agent; Z91.018 Allergy to other foods; Z79.899 Other long term (current) drug therapy; Z90.49 Acquired absence of other specified parts of digestive tract

== ENCOUNTER → 2018-01-18 | Outpatient (CLI) | payer OTHER ==
[~2018-01-18] MED LIST changes: +ASPIR 8181 MG PO; +AZITHROMYCIN 2250 MG PO; +CEFDINIR300 MG PO; +DILTIAZEM 24HR180 M1 PO; +DILTIAZEM 24HR360 M1 PO; +ELIQUIS5 MG PO; +FLECAINIDE ACET50 M1 PO; +LIDOPATCH1 EACH TOP; +MUCINEX600 MG PO; +PREDNISONE 10 M10 M1 PO; +TRAMADOL 50 MG50 MG PO
== END ==
LOC: M.WC 01:48
DX: T86.828 Other complications of skin graft (allograft) (autograft) (principal); I70.243 Atherosclerosis of native arteries of left leg with ulceration of ankle; L97.821 Non-pressure chronic ulcer of other part of left lower leg limited to breakdown of skin; J44.9 Chronic obstructive pulmonary disease, unspecified; I10 Essential (primary) hypertension; I87.2 Venous insufficiency (chronic) (peripheral); F17.200 Nicotine dependence, unspecified, uncomplicated; Y83.2 Surgical operation with anastomosis, bypass or graft as the cause of abnormal reaction of the patient, or of later complication, without mention of misadventure at the time of the procedure

== ENCOUNTER → 2018-01-20 | Outpatient (CLI) | payer OTHER | LOC: M.WC 01:23 | DX: T81.89XA Other complications of procedures, not elsewhere classified, initial encounter (principal); I10 Essential (primary) hypertension; G62.9 Polyneuropathy, unspecified; J44.9 Chronic obstructive pulmonary disease, unspecified; F17.200 Nicotine dependence, unspecified, uncomplicated; Z96.653 Presence of artificial knee joint, bilateral; Y92.89 Other specified places as the place of occurrence of the external cause; Y83.8 Other surgical procedures as the cause of abnormal reaction of the patient, or of later complication, without mention of misadventure at the time of the procedure ==

== ENCOUNTER → 2018-01-24 | Outpatient (CLI) | payer OTHER | LOC: M.WC 02:09 | DX: T86.828 Other complications of skin graft (allograft) (autograft) (principal); I70.243 Atherosclerosis of native arteries of left leg with ulceration of ankle; L97.321 Non-pressure chronic ulcer of left ankle limited to breakdown of skin; J44.9 Chronic obstructive pulmonary disease, unspecified; I10 Essential (primary) hypertension; F17.200 Nicotine dependence, unspecified, uncomplicated; Y83.2 Surgical operation with anastomosis, bypass or graft as the cause of abnormal reaction of the patient, or of later complication, without mention of misadventure at the time of the procedure ==

== ENCOUNTER → 2018-01-27 | Outpatient (CLI) | payer OTHER | LOC: M.WC 01:49 | DX: T86.828 Other complications of skin graft (allograft) (autograft) (principal); I87.312 Chronic venous hypertension (idiopathic) with ulcer of left lower extremity; I70.243 Atherosclerosis of native arteries of left leg with ulceration of ankle; L97.321 Non-pressure chronic ulcer of left ankle limited to breakdown of skin; J44.9 Chronic obstructive pulmonary disease, unspecified; F17.200 Nicotine dependence, unspecified, uncomplicated; Y83.2 Surgical operation with anastomosis, bypass or graft as the cause of abnormal reaction of the patient, or of later complication, without mention of misadventure at the time of the procedure ==

== ENCOUNTER → 2018-02-01 | Outpatient (CLI) | payer OTHER | LOC: M.WC 04:02 | DX: I70.243 Atherosclerosis of native arteries of left leg with ulceration of ankle (principal); I87.312 Chronic venous hypertension (idiopathic) with ulcer of left lower extremity; L97.821 Non-pressure chronic ulcer of other part of left lower leg limited to breakdown of skin; J44.9 Chronic obstructive pulmonary disease, unspecified; F17.200 Nicotine dependence, unspecified, uncomplicated ==

== ENCOUNTER → 2018-02-08 | Outpatient (CLI) | payer OTHER | LOC: M.WC 04:09 | DX: T86.828 Other complications of skin graft (allograft) (autograft) (principal); I87.312 Chronic venous hypertension (idiopathic) with ulcer of left lower extremity; L97.821 Non-pressure chronic ulcer of other part of left lower leg limited to breakdown of skin; I70.243 Atherosclerosis of native arteries of left leg with ulceration of ankle; I10 Essential (primary) hypertension; L84 Corns and callosities; G62.9 Polyneuropathy, unspecified; F17.200 Nicotine dependence, unspecified, uncomplicated; Z96.653 Presence of artificial knee joint, bilateral; Y83.2 Surgical operation with anastomosis, bypass or graft as the cause of abnormal reaction of the patient, or of later complication, without mention of misadventure at the time of the procedure ==

== ENCOUNTER → 2018-02-15 | Outpatient (CLI) | payer OTHER | LOC: M.WC 03:28 | DX: T86.828 Other complications of skin graft (allograft) (autograft) (principal); I87.312 Chronic venous hypertension (idiopathic) with ulcer of left lower extremity; I70.243 Atherosclerosis of native arteries of left leg with ulceration of ankle; L97.821 Non-pressure chronic ulcer of other part of left lower leg limited to breakdown of skin; I10 Essential (primary) hypertension; L84 Corns and callosities; G62.9 Polyneuropathy, unspecified; J44.9 Chronic obstructive pulmonary disease, unspecified; F17.200 Nicotine dependence, unspecified, uncomplicated; Z96.653 Presence of artificial knee joint, bilateral; Y83.2 Surgical operation with anastomosis, bypass or graft as the cause of abnormal reaction of the patient, or of later complication, without mention of misadventure at the time of the procedure ==

== ENCOUNTER → 2018-02-22 | Outpatient (CLI) | payer OTHER | LOC: M.WC 00:22 | DX: T86.828 Other complications of skin graft (allograft) (autograft) (principal); I87.312 Chronic venous hypertension (idiopathic) with ulcer of left lower extremity; L97.822 Non-pressure chronic ulcer of other part of left lower leg with fat layer exposed; G62.9 Polyneuropathy, unspecified; J44.9 Chronic obstructive pulmonary disease, unspecified; F17.200 Nicotine dependence, unspecified, uncomplicated; Z96.653 Presence of artificial knee joint, bilateral; Y83.2 Surgical operation with anastomosis, bypass or graft as the cause of abnormal reaction of the patient, or of later complication, without mention of misadventure at the time of the procedure ==

== ENCOUNTER → 2018-03-01 | Outpatient (CLI) | payer OTHER | LOC: M.WC 04:02 | DX: T86.828 Other complications of skin graft (allograft) (autograft) (principal); I70.243 Atherosclerosis of native arteries of left leg with ulceration of ankle; L97.321 Non-pressure chronic ulcer of left ankle limited to breakdown of skin; I87.312 Chronic venous hypertension (idiopathic) with ulcer of left lower extremity; L97.821 Non-pressure chronic ulcer of other part of left lower leg limited to breakdown of skin; L84 Corns and callosities; G62.9 Polyneuropathy, unspecified; J44.9 Chronic obstructive pulmonary disease, unspecified; F17.200 Nicotine dependence, unspecified, uncomplicated; Z96.653 Presence of artificial knee joint, bilateral; Y83.2 Surgical operation with anastomosis, bypass or graft as the cause of abnormal reaction of the patient, or of later complication, without mention of misadventure at the time of the procedure ==

== ENCOUNTER → 2018-03-08 | Outpatient (CLI) | payer OTHER | LOC: M.WC 05:08 | DX: T86.828 Other complications of skin graft (allograft) (autograft) (principal); I70.243 Atherosclerosis of native arteries of left leg with ulceration of ankle; L97.821 Non-pressure chronic ulcer of other part of left lower leg limited to breakdown of skin; G62.9 Polyneuropathy, unspecified; J44.9 Chronic obstructive pulmonary disease, unspecified; Z96.653 Presence of artificial knee joint, bilateral; Y83.2 Surgical operation with anastomosis, bypass or graft as the cause of abnormal reaction of the patient, or of later complication, without mention of misadventure at the time of the procedure ==

== ENCOUNTER → 2018-03-14 | Outpatient (CLI) | payer OTHER | LOC: M.WC 04:55 | DX: I87.312 Chronic venous hypertension (idiopathic) with ulcer of left lower extremity (principal); I70.243 Atherosclerosis of native arteries of left leg with ulceration of ankle; L97.821 Non-pressure chronic ulcer of other part of left lower leg limited to breakdown of skin; J44.9 Chronic obstructive pulmonary disease, unspecified; G62.9 Polyneuropathy, unspecified; F17.210 Nicotine dependence, cigarettes, uncomplicated ==

== ENCOUNTER → 2018-03-22 | Outpatient (CLI) | payer OTHER | LOC: M.WC 04:33 | DX: I87.312 Chronic venous hypertension (idiopathic) with ulcer of left lower extremity (principal); I70.248 Atherosclerosis of native arteries of left leg with ulceration of other part of lower leg; L97.822 Non-pressure chronic ulcer of other part of left lower leg with fat layer exposed; J44.9 Chronic obstructive pulmonary disease, unspecified; G62.9 Polyneuropathy, unspecified; F17.210 Nicotine dependence, cigarettes, uncomplicated ==

== ENCOUNTER → 2018-03-29 | Outpatient (CLI) | payer OTHER | LOC: M.WC 05:08 | DX: T86.828 Other complications of skin graft (allograft) (autograft) (principal); I87.312 Chronic venous hypertension (idiopathic) with ulcer of left lower extremity; L97.822 Non-pressure chronic ulcer of other part of left lower leg with fat layer exposed; G62.9 Polyneuropathy, unspecified; L84 Corns and callosities; J44.9 Chronic obstructive pulmonary disease, unspecified; F17.200 Nicotine dependence, unspecified, uncomplicated; Z96.653 Presence of artificial knee joint, bilateral; Y83.2 Surgical operation with anastomosis, bypass or graft as the cause of abnormal reaction of the patient, or of later complication, without mention of misadventure at the time of the procedure ==

== ENCOUNTER → 2018-04-03 | Outpatient (CLI) | payer OTHER | LOC: M.WC 00:12 | DX: T86.828 Other complications of skin graft (allograft) (autograft) (principal); I87.2 Venous insufficiency (chronic) (peripheral); I10 Essential (primary) hypertension; G62.9 Polyneuropathy, unspecified; J44.9 Chronic obstructive pulmonary disease, unspecified; Z87.891 Personal history of nicotine dependence; Z96.653 Presence of artificial knee joint, bilateral; Y83.2 Surgical operation with anastomosis, bypass or graft as the cause of abnormal reaction of the patient, or of later complication, without mention of misadventure at the time of the procedure ==

== ENCOUNTER → 2018-04-05 | Outpatient (CLI) | payer OTHER | LOC: M.WC 04:43 | DX: T86.828 Other complications of skin graft (allograft) (autograft) (principal); I87.312 Chronic venous hypertension (idiopathic) with ulcer of left lower extremity; I70.245 Atherosclerosis of native arteries of left leg with ulceration of other part of foot; L97.321 Non-pressure chronic ulcer of left ankle limited to breakdown of skin; L84 Corns and callosities; G62.9 Polyneuropathy, unspecified; J44.9 Chronic obstructive pulmonary disease, unspecified; F17.200 Nicotine dependence, unspecified, uncomplicated; Z96.653 Presence of artificial knee joint, bilateral; Y83.2 Surgical operation with anastomosis, bypass or graft as the cause of abnormal reaction of the patient, or of later complication, without mention of misadventure at the time of the procedure ==

== ENCOUNTER → 2018-04-07 | Outpatient (CLI) | payer OTHER | LOC: M.WC 01:40 | DX: T86.828 Other complications of skin graft (allograft) (autograft) (principal); L97.521 Non-pressure chronic ulcer of other part of left foot limited to breakdown of skin; I87.2 Venous insufficiency (chronic) (peripheral); I10 Essential (primary) hypertension; G62.9 Polyneuropathy, unspecified; J44.9 Chronic obstructive pulmonary disease, unspecified; F17.200 Nicotine dependence, unspecified, uncomplicated; Z96.653 Presence of artificial knee joint, bilateral; Y83.2 Surgical operation with anastomosis, bypass or graft as the cause of abnormal reaction of the patient, or of later complication, without mention of misadventure at the time of the procedure ==

== ENCOUNTER → 2018-04-10 | Outpatient (CLI) | payer OTHER | LOC: M.WC 01:12 | DX: T86.828 Other complications of skin graft (allograft) (autograft) (principal); I87.2 Venous insufficiency (chronic) (peripheral); I10 Essential (primary) hypertension; G62.9 Polyneuropathy, unspecified; J44.9 Chronic obstructive pulmonary disease, unspecified; F17.200 Nicotine dependence, unspecified, uncomplicated; Z96.653 Presence of artificial knee joint, bilateral; Y83.2 Surgical operation with anastomosis, bypass or graft as the cause of abnormal reaction of the patient, or of later complication, without mention of misadventure at the time of the procedure ==

== ENCOUNTER → 2018-04-12 | Outpatient (CLI) | payer OTHER | LOC: M.WC 02:55 | DX: T86.828 Other complications of skin graft (allograft) (autograft) (principal); I87.312 Chronic venous hypertension (idiopathic) with ulcer of left lower extremity; L97.821 Non-pressure chronic ulcer of other part of left lower leg limited to breakdown of skin; I70.243 Atherosclerosis of native arteries of left leg with ulceration of ankle; L97.321 Non-pressure chronic ulcer of left ankle limited to breakdown of skin; L84 Corns and callosities; G62.9 Polyneuropathy, unspecified; J44.9 Chronic obstructive pulmonary disease, unspecified; F17.200 Nicotine dependence, unspecified, uncomplicated; Z96.653 Presence of artificial knee joint, bilateral; Y83.2 Surgical operation with anastomosis, bypass or graft as the cause of abnormal reaction of the patient, or of later complication, without mention of misadventure at the time of the procedure ==

== ENCOUNTER → 2018-04-14 | Outpatient (CLI) | payer OTHER | LOC: M.WC 01:45 | DX: T86.828 Other complications of skin graft (allograft) (autograft) (principal); I87.2 Venous insufficiency (chronic) (peripheral); I10 Essential (primary) hypertension; G62.9 Polyneuropathy, unspecified; J44.9 Chronic obstructive pulmonary disease, unspecified; F17.200 Nicotine dependence, unspecified, uncomplicated; Z96.653 Presence of artificial knee joint, bilateral; Y83.2 Surgical operation with anastomosis, bypass or graft as the cause of abnormal reaction of the patient, or of later complication, without mention of misadventure at the time of the procedure ==

== ENCOUNTER → 2018-04-17 | Outpatient (CLI) | payer OTHER | LOC: M.WC 00:52 | DX: T86.828 Other complications of skin graft (allograft) (autograft) (principal); I87.2 Venous insufficiency (chronic) (peripheral); I10 Essential (primary) hypertension; G62.9 Polyneuropathy, unspecified; J44.9 Chronic obstructive pulmonary disease, unspecified; F17.200 Nicotine dependence, unspecified, uncomplicated; Z96.653 Presence of artificial knee joint, bilateral; Y83.2 Surgical operation with anastomosis, bypass or graft as the cause of abnormal reaction of the patient, or of later complication, without mention of misadventure at the time of the procedure ==

== ENCOUNTER → 2018-04-19 | Outpatient (CLI) | payer OTHER | LOC: M.WC 04:04 | DX: T86.828 Other complications of skin graft (allograft) (autograft) (principal); I87.312 Chronic venous hypertension (idiopathic) with ulcer of left lower extremity; I70.243 Atherosclerosis of native arteries of left leg with ulceration of ankle; L97.321 Non-pressure chronic ulcer of left ankle limited to breakdown of skin; G62.9 Polyneuropathy, unspecified; J44.9 Chronic obstructive pulmonary disease, unspecified; F17.200 Nicotine dependence, unspecified, uncomplicated; Z96.653 Presence of artificial knee joint, bilateral; Y83.2 Surgical operation with anastomosis, bypass or graft as the cause of abnormal reaction of the patient, or of later complication, without mention of misadventure at the time of the procedure ==

== ENCOUNTER → 2018-04-21 | Outpatient (CLI) | payer OTHER | LOC: M.WC 01:20 | DX: T86.828 Other complications of skin graft (allograft) (autograft) (principal); I87.2 Venous insufficiency (chronic) (peripheral); I10 Essential (primary) hypertension; G62.9 Polyneuropathy, unspecified; J44.9 Chronic obstructive pulmonary disease, unspecified; F17.200 Nicotine dependence, unspecified, uncomplicated; Z96.653 Presence of artificial knee joint, bilateral ==

== ENCOUNTER → 2018-04-26 | Outpatient (CLI) | payer OTHER | LOC: M.WC 03:17 | DX: T86.828 Other complications of skin graft (allograft) (autograft) (principal); I87.2 Venous insufficiency (chronic) (peripheral); I10 Essential (primary) hypertension; G62.9 Polyneuropathy, unspecified; J44.9 Chronic obstructive pulmonary disease, unspecified; F17.200 Nicotine dependence, unspecified, uncomplicated; Z96.653 Presence of artificial knee joint, bilateral; Y83.2 Surgical operation with anastomosis, bypass or graft as the cause of abnormal reaction of the patient, or of later complication, without mention of misadventure at the time of the procedure ==

== ENCOUNTER → 2018-04-28 | Outpatient (CLI) | payer OTHER | LOC: M.WC 01:57 | DX: T86.828 Other complications of skin graft (allograft) (autograft) (principal); I87.2 Venous insufficiency (chronic) (peripheral); I10 Essential (primary) hypertension; G62.9 Polyneuropathy, unspecified; J44.9 Chronic obstructive pulmonary disease, unspecified; F17.200 Nicotine dependence, unspecified, uncomplicated; Z96.653 Presence of artificial knee joint, bilateral; Y83.2 Surgical operation with anastomosis, bypass or graft as the cause of abnormal reaction of the patient, or of later complication, without mention of misadventure at the time of the procedure ==

== ENCOUNTER → 2018-05-01 | Outpatient (CLI) | payer OTHER | LOC: M.WC 06:13 | DX: T86.828 Other complications of skin graft (allograft) (autograft) (principal); I87.2 Venous insufficiency (chronic) (peripheral); I10 Essential (primary) hypertension; G62.9 Polyneuropathy, unspecified; J44.9 Chronic obstructive pulmonary disease, unspecified; F17.200 Nicotine dependence, unspecified, uncomplicated; Z96.653 Presence of artificial knee joint, bilateral; Y83.2 Surgical operation with anastomosis, bypass or graft as the cause of abnormal reaction of the patient, or of later complication, without mention of misadventure at the time of the procedure ==

== ENCOUNTER → 2018-05-03 | Outpatient (CLI) | payer OTHER | LOC: M.WC 01:31 | DX: T86.828 Other complications of skin graft (allograft) (autograft) (principal); I87.312 Chronic venous hypertension (idiopathic) with ulcer of left lower extremity; I70.243 Atherosclerosis of native arteries of left leg with ulceration of ankle; L97.321 Non-pressure chronic ulcer of left ankle limited to breakdown of skin; L84 Corns and callosities; J44.9 Chronic obstructive pulmonary disease, unspecified; F17.200 Nicotine dependence, unspecified, uncomplicated; Z96.653 Presence of artificial knee joint, bilateral; Y83.2 Surgical operation with anastomosis, bypass or graft as the cause of abnormal reaction of the patient, or of later complication, without mention of misadventure at the time of the procedure ==

== ENCOUNTER → 2018-05-05 | Outpatient (CLI) | payer OTHER | LOC: M.WC 03:41 | DX: T86.828 Other complications of skin graft (allograft) (autograft) (principal); I87.2 Venous insufficiency (chronic) (peripheral); I10 Essential (primary) hypertension; G62.9 Polyneuropathy, unspecified; J44.9 Chronic obstructive pulmonary disease, unspecified; F17.200 Nicotine dependence, unspecified, uncomplicated; Z96.653 Presence of artificial knee joint, bilateral; Y83.2 Surgical operation with anastomosis, bypass or graft as the cause of abnormal reaction of the patient, or of later complication, without mention of misadventure at the time of the procedure ==

== ENCOUNTER → 2018-05-08 | Outpatient (CLI) | payer OTHER | LOC: M.WC 01:57 | DX: T86.828 Other complications of skin graft (allograft) (autograft) (principal); I10 Essential (primary) hypertension; L84 Corns and callosities; G62.9 Polyneuropathy, unspecified; J44.9 Chronic obstructive pulmonary disease, unspecified; F17.200 Nicotine dependence, unspecified, uncomplicated; Z96.653 Presence of artificial knee joint, bilateral; Y83.2 Surgical operation with anastomosis, bypass or graft as the cause of abnormal reaction of the patient, or of later complication, without mention of misadventure at the time of the procedure ==

== ENCOUNTER → 2018-05-10 | Outpatient (CLI) | payer OTHER | LOC: M.WC 04:32 | DX: T86.828 Other complications of skin graft (allograft) (autograft) (principal); I10 Essential (primary) hypertension; I87.2 Venous insufficiency (chronic) (peripheral); L84 Corns and callosities; G62.9 Polyneuropathy, unspecified; J44.9 Chronic obstructive pulmonary disease, unspecified; F17.200 Nicotine dependence, unspecified, uncomplicated; Z96.653 Presence of artificial knee joint, bilateral; Y83.2 Surgical operation with anastomosis, bypass or graft as the cause of abnormal reaction of the patient, or of later complication, without mention of misadventure at the time of the procedure ==

== ENCOUNTER → 2018-05-12 | Outpatient (CLI) | payer OTHER | LOC: M.WC 01:19 | DX: T86.828 Other complications of skin graft (allograft) (autograft) (principal); I10 Essential (primary) hypertension; I87.2 Venous insufficiency (chronic) (peripheral); G62.9 Polyneuropathy, unspecified; J44.9 Chronic obstructive pulmonary disease, unspecified; F17.200 Nicotine dependence, unspecified, uncomplicated; Z96.653 Presence of artificial knee joint, bilateral; Y83.2 Surgical operation with anastomosis, bypass or graft as the cause of abnormal reaction of the patient, or of later complication, without mention of misadventure at the time of the procedure ==

== ENCOUNTER → 2018-05-17 | Outpatient (CLI) | payer OTHER | LOC: M.WC 04:46 | DX: T86.828 Other complications of skin graft (allograft) (autograft) (principal); I87.312 Chronic venous hypertension (idiopathic) with ulcer of left lower extremity; I70.243 Atherosclerosis of native arteries of left leg with ulceration of ankle; L97.321 Non-pressure chronic ulcer of left ankle limited to breakdown of skin; L84 Corns and callosities; G62.9 Polyneuropathy, unspecified; J44.9 Chronic obstructive pulmonary disease, unspecified; F17.200 Nicotine dependence, unspecified, uncomplicated; Z96.653 Presence of artificial knee joint, bilateral; Y83.2 Surgical operation with anastomosis, bypass or graft as the cause of abnormal reaction of the patient, or of later complication, without mention of misadventure at the time of the procedure ==

== ENCOUNTER → 2018-05-19 | Outpatient (CLI) | payer OTHER | LOC: M.WC 02:16 | DX: T86.828 Other complications of skin graft (allograft) (autograft) (principal); I87.312 Chronic venous hypertension (idiopathic) with ulcer of left lower extremity; I70.243 Atherosclerosis of native arteries of left leg with ulceration of ankle; L97.321 Non-pressure chronic ulcer of left ankle limited to breakdown of skin; G62.9 Polyneuropathy, unspecified; J44.9 Chronic obstructive pulmonary disease, unspecified; F17.200 Nicotine dependence, unspecified, uncomplicated; Z96.653 Presence of artificial knee joint, bilateral; Y83.2 Surgical operation with anastomosis, bypass or graft as the cause of abnormal reaction of the patient, or of later complication, without mention of misadventure at the time of the procedure ==

== ENCOUNTER → 2018-05-24 | Outpatient (CLI) | payer OTHER | LOC: M.WC 03:02 | DX: T86.828 Other complications of skin graft (allograft) (autograft) (principal); I87.312 Chronic venous hypertension (idiopathic) with ulcer of left lower extremity; I70.243 Atherosclerosis of native arteries of left leg with ulceration of ankle; L97.321 Non-pressure chronic ulcer of left ankle limited to breakdown of skin; L84 Corns and callosities; G62.9 Polyneuropathy, unspecified; J44.9 Chronic obstructive pulmonary disease, unspecified; F17.200 Nicotine dependence, unspecified, uncomplicated; Z96.653 Presence of artificial knee joint, bilateral; Y83.2 Surgical operation with anastomosis, bypass or graft as the cause of abnormal reaction of the patient, or of later complication, without mention of misadventure at the time of the procedure ==

== ENCOUNTER → 2018-05-31 | Outpatient (CLI) | payer OTHER | LOC: M.WC 05:16 | DX: T86.828 Other complications of skin graft (allograft) (autograft) (principal); I70.243 Atherosclerosis of native arteries of left leg with ulceration of ankle; I87.312 Chronic venous hypertension (idiopathic) with ulcer of left lower extremity; L97.321 Non-pressure chronic ulcer of left ankle limited to breakdown of skin; L84 Corns and callosities; G62.9 Polyneuropathy, unspecified; I10 Essential (primary) hypertension; J44.9 Chronic obstructive pulmonary disease, unspecified; F17.200 Nicotine dependence, unspecified, uncomplicated; Z96.653 Presence of artificial knee joint, bilateral; Y83.2 Surgical operation with anastomosis, bypass or graft as the cause of abnormal reaction of the patient, or of later complication, without mention of misadventure at the time of the procedure ==

== ENCOUNTER → 2018-06-07 | Outpatient (CLI) | payer OTHER | LOC: M.WC 04:23 | DX: T86.828 Other complications of skin graft (allograft) (autograft) (principal); I87.312 Chronic venous hypertension (idiopathic) with ulcer of left lower extremity; I70.243 Atherosclerosis of native arteries of left leg with ulceration of ankle; L97.321 Non-pressure chronic ulcer of left ankle limited to breakdown of skin; L84 Corns and callosities; G62.9 Polyneuropathy, unspecified; J44.9 Chronic obstructive pulmonary disease, unspecified; F17.200 Nicotine dependence, unspecified, uncomplicated; Z96.653 Presence of artificial knee joint, bilateral; Y83.2 Surgical operation with anastomosis, bypass or graft as the cause of abnormal reaction of the patient, or of later complication, without mention of misadventure at the time of the procedure ==

== ENCOUNTER → 2018-06-13 | Outpatient (CLI) | payer OTHER ==
[2018-06-13] VITALS (7 sets, daily range): BP systolic 140–162; BP diastolic 67–78
[~2018-06-13] VITALS: Ht 180.3 cm; Wt 99.8 kg
[2018-06-13 10:24] LABS: HEMATOCRIT 37.8 % (42.0-52.0); MCH 33.3 pg (26.0-34.0); MCHC 34.4 g/dL (28.0-37.0); MCV 96.8 fL (80.0-100.0); MPV 7.7 fl. (7.2-11.1); RBC 3.91 mil/uL (4.50-6.00); RDW-CV 15.1 % (10.5-14.5); WBC 6.7 thou/uL (4.0-11.0)
[2018-06-13 10:36] LABS: CALCIUM 9.3 mg/dL (8.5-10.1); CREATININE 0.8 mg/dL (0.6-1.3); POTASSIUM 3.9 mmol/L (3.5-5.1)
[2018-06-13 10:41] LABS: ALBUMIN 3.6 g/dL (3.4-5.0); TOTAL BILIRUBIN 0.9 mg/dL (<0.1-1.0); TOTAL PROTEIN 7.2 g/dL (6.4-8.2)
--- NOTE | 2018-06-13 15:23 | OP ---
[facility] [address] [place] [address] OPERATIVE REPORT Name: CARLOTTA PIEDRA Room: [facility]#: [id number] Admission: 06/13/18 Attend Phys: Yemi Carter DO Discharge: Date of : 54 Report #: [id number] THIS REPORT FOR: //name// CC: Yemi Brown DATE OF SERVICE: 06/13/2018 PREOPERATIVE DIAGNOSIS: Chronic nonhealing left lower extremity wound with known peripheral vascular disease. POSTOPERATIVE DIAGNOSIS: Chronic nonhealing left lower extremity wound with known peripheral vascular disease. OPERATION: 1. Ultrasound-guided access to the right common femoral artery. 2. Aortoiliofemoral angiogram. 3. Third order selective left lower extremity angiogram. SURGEON: Yemi Carter DO. RADIOLOGIST PHYSICIAN: LILIANA Persaud. ANESTHESIA: Sedation with local. ESTIMATED BLOOD LOSS: Less than 10 mL. FLUIDS: Less than 100 crystalloid. URINE OUTPUT: None. SPECIMENS: None. IMPLANTS: None. COMPLICATIONS: None. FINDINGS: Ultrasound demonstrated the right common femoral artery to be soft and compressible, suitable for access. Initial aortogram demonstrated patent bilateral renal arteries without significant stenosis, patent infrarenal aorta, bilateral common internal and external iliac arteries without significant stenosis. He had a patent left common femoral artery, deep femoral artery and superficial femoral artery without significant stenosis. He had a previously placed stent at the adductor canal, which was widely patent with minimal stenosis. His popliteal artery was patent without significant stenosis. He had a high anterior tibial artery takeoff, which was patent and in line with the [facility] [address] [place] [address] OPERATIVE REPORT Name: TADEOCARLOTTA Omar Room: [facility] JAYNA Vences#: [id number] Admission: 06/13/18 Attend Phys: Yemi Carter DO Discharge: Date of : 54 Report #: [id number] foot without significant stenosis. His tibioperoneal arteries were patent without significant stenosis. He had some moderate origin stenosis of his posterior tibial artery, but is otherwise patent and in line with the foot. I do not appreciate any significant stenosis that required intervention as he certainly had adequate perfusion down his leg for wound healing purposes. CLINICAL HISTORY: The patient is a 68-year-old man with known peripheral vascular disease. Previously left SFA stent about 10 years ago. He had a chronic nonhealing wound of his left lower leg, primarily venous in nature, but his previous noninvasive testing earlier this year suggested poorly compressible vessels with likely recurrent peripheral vascular disease. He is brought in today for an elective angiogram and possible intervention. DESCRIPTION OF PROCEDURE: After informed consent was obtained, the patient was taken to the angio suite, placed on the angio bed in supine position. Bilateral groins were prepped and draped in the usual sterile fashion. Full timeout was performed identifying correct patient and procedure. Next, the skin and subcutaneous tissues of the right groin were anesthetized with lidocaine anesthetic. Using ultrasound guidance, the right common femoral artery was identified, was accessed with micropuncture needle, using Seldinger technique a microwire and microsheath were placed and ultimately upsized to a 6-[place] sheath for a OM Latamson wire. I then passed a flush catheter in the infrarenal aorta and performed aortoiliofemoral angiogram with the findings noted above. I obtained up and over access across the bifurcation, positioned the catheter in the left common femoral artery, performed a selective left lower extremity angiogram with findings noted above. Again, there was really no significant recurrent stenosis appreciated that required any sort of intervention. He had good inline flow into his foot. He certainly appears to have adequate perfusion for wound healing. At this point, the catheter was removed over wire. Angiogram was performed from the sheath in the right groin to confirm access position. I then deployed a 6-[place] Mynx closure device in standard fashion. Manual pressure was held for 10 minutes. Once hemostasis was ensured, sterile dressing was applied. All sponge, sharp and instrument counts reported as correct x 2. He tolerated the procedure well and transferred to recovery room in stable condition. <ELECTRONICALLY SIGNED> By: Yemi Carter DO 06/13/18 1523 1300 [id number] Carter DO /nt
== END | disposition home or self-care (01) ==
LOC: M.INT 09:05
PROVIDERS: Surgery
DX: I73.89 Other specified peripheral vascular diseases (principal); L97.929 Non-pressure chronic ulcer of unspecified part of left lower leg with unspecified severity; J44.9 Chronic obstructive pulmonary disease, unspecified; B19.20 Unspecified viral hepatitis C without hepatic coma; F17.210 Nicotine dependence, cigarettes, uncomplicated; Z88.8 Allergy status to other drugs, medicaments and biological substances; Z91.09 Other allergy status, other than to drugs and biological substances; Z79.899 Other long term (current) drug therapy; Z98.890 Other specified postprocedural states; Z79.01 Long term (current) use of anticoagulants; Z79.891 Long term (current) use of opiate analgesic

== ENCOUNTER → 2018-06-14 | Outpatient (CLI) | payer OTHER | LOC: M.WC 03:53 | DX: T86.828 Other complications of skin graft (allograft) (autograft) (principal); I87.312 Chronic venous hypertension (idiopathic) with ulcer of left lower extremity; I70.243 Atherosclerosis of native arteries of left leg with ulceration of ankle; L97.321 Non-pressure chronic ulcer of left ankle limited to breakdown of skin; L84 Corns and callosities; G62.9 Polyneuropathy, unspecified; J44.9 Chronic obstructive pulmonary disease, unspecified; F17.200 Nicotine dependence, unspecified, uncomplicated; Z96.653 Presence of artificial knee joint, bilateral; Y83.2 Surgical operation with anastomosis, bypass or graft as the cause of abnormal reaction of the patient, or of later complication, without mention of misadventure at the time of the procedure ==

== ENCOUNTER → 2018-06-21 | Outpatient (CLI) | payer OTHER | LOC: M.WC 01:32 | DX: T86.828 Other complications of skin graft (allograft) (autograft) (principal); I87.312 Chronic venous hypertension (idiopathic) with ulcer of left lower extremity; I70.243 Atherosclerosis of native arteries of left leg with ulceration of ankle; L97.321 Non-pressure chronic ulcer of left ankle limited to breakdown of skin; L84 Corns and callosities; G62.9 Polyneuropathy, unspecified; J44.9 Chronic obstructive pulmonary disease, unspecified; F17.200 Nicotine dependence, unspecified, uncomplicated; Z96.653 Presence of artificial knee joint, bilateral; Y83.2 Surgical operation with anastomosis, bypass or graft as the cause of abnormal reaction of the patient, or of later complication, without mention of misadventure at the time of the procedure ==

== ENCOUNTER → 2018-06-29 | Outpatient (CLI) | payer OTHER | LOC: M.WC 06-28 08:00 | DX: I87.312 Chronic venous hypertension (idiopathic) with ulcer of left lower extremity (principal); L97.821 Non-pressure chronic ulcer of other part of left lower leg limited to breakdown of skin; L84 Corns and callosities; J44.9 Chronic obstructive pulmonary disease, unspecified; G62.9 Polyneuropathy, unspecified; F17.200 Nicotine dependence, unspecified, uncomplicated; Z96.653 Presence of artificial knee joint, bilateral ==

== ENCOUNTER → 2018-07-05 | Outpatient (CLI) | payer OTHER | LOC: M.WC 04:24 | DX: T86.828 Other complications of skin graft (allograft) (autograft) (principal); I87.312 Chronic venous hypertension (idiopathic) with ulcer of left lower extremity; I70.243 Atherosclerosis of native arteries of left leg with ulceration of ankle; L97.321 Non-pressure chronic ulcer of left ankle limited to breakdown of skin; L84 Corns and callosities; G62.9 Polyneuropathy, unspecified; I10 Essential (primary) hypertension; J44.9 Chronic obstructive pulmonary disease, unspecified; F17.200 Nicotine dependence, unspecified, uncomplicated; Z96.653 Presence of artificial knee joint, bilateral; Y83.2 Surgical operation with anastomosis, bypass or graft as the cause of abnormal reaction of the patient, or of later complication, without mention of misadventure at the time of the procedure ==

== ENCOUNTER 2018-07-11 18:23 | Inpatient (IN) | payer OTHER ==
[~2018-07-11] VITALS: Ht 180.3 cm; Wt 101.7 kg
[~2018-07-11 18:23] MED LIST changes: -ASPIR 8181 MG PO; -AZITHROMYCIN 2250 MG PO; -CEFDINIR300 MG PO; -DILTIAZEM 24HR180 M1 PO; -DILTIAZEM 24HR360 M1 PO; -ELIQUIS5 MG PO; -FLECAINIDE ACET50 M1 PO; -MUCINEX600 MG PO; -PREDNISONE 10 M10 M1 PO
[2018-07-11 18:27] VITALS: BP 155/65
[2018-07-11 19:10] LABS: INFLUENZA A ANTIGEN None Detected (None Detect); INFLUENZA B ANTIGEN None Detected (None Detect)
[2018-07-11 19:16] LABS: HEMATOCRIT 36.8 % (42.0-52.0); HEMOGLOBIN 12.5 gm/dL (14.0-18.0); MCH 33.4 pg (26.0-34.0); MCV 98.4 fL (80.0-100.0); MPV 8.2 fl. (7.2-11.1); NUCLEATED RBCS 0 /100WBC; PLATELET COUNT* 321 thou/uL (150-400); RBC 3.74 mil/uL (4.50-6.00); RDW-CV 15.5 % (10.5-14.5); WBC 11.5 thou/uL (4.0-11.0)
[2018-07-11 19:25] LABS: ANION GAP 7 mmol/L (7-16); BUN 11 mg/dL (7-18); CALCIUM 8.9 mg/dL (8.5-10.1); CHLORIDE 100 mmol/L (98-107); CO2 25 mmol/L (21-32); CREATININE 0.8 mg/dL (0.6-1.3); GLUCOSE 106 mg/dL (70-99); POTASSIUM 4.2 mmol/L (3.5-5.1); SODIUM 132 mmol/L (136-145)
[2018-07-11 19:32] LABS: ALBUMIN 3.3 g/dL (3.4-5.0); ALKALINE PHOSPHATASE 126 U/L (46-116); SGOT 41 U/L (15-37); SGPT 93 U/L (30-65); TOTAL BILIRUBIN 1.1 mg/dL (<0.1-1.0); TOTAL PROTEIN 7.5 g/dL (6.4-8.2); TROPONIN-I LEVEL <0.06 ng/mL (<0.06)
[2018-07-11 19:50] LABS: ABSOLUTE EOSINOPHILS 0.3 thou/uL (0.0-0.7); ABSOLUTE LYMPHOCYTES 1.6 thou/uL (0.8-5.3); ABSOLUTE NEUTROPHILS 8.5 thou/uL (1.6-8.1)
[2018-07-11 19:51] LABS: PLATELET ESTIMATE ADEQUATE
[2018-07-11 22:33] VITALS: BP 127/60
[2018-07-11] MEDS ORDERED: ASPIR 8181 MG PO (22:50)
[2018-07-11 23:15] VITALS: BP 121/62
[2018-07-12 00:37] LABS: HEMATOCRIT 36.3 % (42.0-52.0); HEMOGLOBIN 12.5 gm/dL (14.0-18.0); MCH 33.9 pg (26.0-34.0); MCHC 34.4 g/dL (28.0-37.0); MCV 98.7 fL (80.0-100.0); MPV 8.4 fl. (7.2-11.1); RBC 3.68 mil/uL (4.50-6.00); RDW-CV 15.6 % (10.5-14.5); WBC 8.5 thou/uL (4.0-11.0)
[2018-07-12 01:30] LABS: ALBUMIN 3.3 g/dL (3.4-5.0); CALCIUM 8.5 mg/dL (8.5-10.1); POTASSIUM 3.8 mmol/L (3.5-5.1); TOTAL BILIRUBIN 0.9 mg/dL (<0.1-1.0); TOTAL PROTEIN 6.9 g/dL (6.4-8.2)
[2018-07-12 04:13] VITALS: BP 145/76
--- NOTE | 2018-07-12 05:11 | NUR ---
RECEIVED REPORT FROM ED. PT TRANSFERRED TO 202. PT A&OX4. VSS. ADMISSION HISTORY AND PHYSICAL ASSESSMENT COMPLETED AND CHARTED. PT ON O2 AT 2L NC WITH 97% O2 SAT. PT ORIENTED TO ROOM AND CALL LIGHT. PT TRACING SR UPON ADMISSION THEN AFTER A WHILE PT COMPLAINED OF CHEST PAIN DESCRIBED STABBING PAIN WITH PAIN SCALE OF 10/10. BP 183/84 HR 140'S-160'S. AFIB ON EKG. DR GONGORA INFORMED. CARDIZEM DRIP INITIATED. TITRATED ACCORDINGLY. PAIN MEDS GIVEN WITH PARTIAL RELIEF. CONSULTED CARDIOLOGY. PT WITH OPEN SORE WITH BANDAGE DRESSING ON LEFT LOWER LEG. PT REFUSED TO UNWRAP DRESSING FOR TAKING PICTURES. CALL LIGHT WITHIN REACH. BED IN LOW POSITION.
[2018-07-12 05:16] LABS: URINE BILIRUBIN NEGATIVE (Negative); URINE BLOOD NEGATIVE (Negative); URINE CLARITY CLEAR; URINE COLOR YELLOW; URINE GLUCOSE-RANDOM 3+ (Negative); URINE KETONES NEGATIVE (Negative); URINE LEUKOCYTES-REFLEX NEGATIVE (Negative); URINE NITRITE-REFLEX NEGATIVE (Negative); URINE PROTEIN NEGATIVE (Negative); URINE SPECIFIC GRAVITY <= 1.005 (1.005-1.030); URINE UROBILINOGEN 0.2 E.U./dl (0.2-1.0)
[2018-07-12 08:00] VITALS: BP 129/61
--- NOTE | 2018-07-12 11:02 | NUR ---
WAS ASKED TO CHECK COST FOR ELIQUIS/XARELTO. BOTH ARE A $75/MONTH COPAY PER ESTEBAN AT [facility]. CM TO DISCUSS WITH PT
--- NOTE | 2018-07-12 11:52 | NUR ---
Pt is A&O. Resides at home with his . Independent with ADLs. Pt states that he does not use any DME. No home o2. No hx of HH or SNF. Goal is home at ne. CM discussed Eliquis cost, Pt complained, but stated that he is able to afford the $75/month copay. CM provided Pt with a 30 day free card. No needs anticipated at ne. Following.
[2018-07-12 12:00] VITALS: BP 125/55
--- NOTE | 2018-07-12 14:51 | NUR ---
WOUND CARE NOTE: CONSULT RECEIVED FOR VENOUS STASIS WOUND. PATIENT PRESENTS WITH A FULL THICKNESS ULCERATION TO THE MEDIAL ASPECT OF THE LEFT LEG. 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 WOUND MEASURES 2.2X1.5X0.5. PINK, MOIST WOUND BED. [place]-WOUND WITH MACERATION. CLEANSED WOUND WITH SALINE, PATTED DRY. APPLIED PURACHOL AG TO WOUND BED. COVERED WITH 4X4 GAUZE. SECURED WITH 4-LAYER WRAP. PATIENT TOLERATED DRESSING CHANGE WELL. RECOMMEND ENCOURAGE SMOKING CESSATION ENCOURAGE GOOD NUTRTION/HYDRATION FOLLOW UP IN WOUND CENTER UPON DISCHARGE
[2018-07-12 16:00] VITALS: BP 127/57
--- NOTE | 2018-07-12 16:27 | NUR ---
RECEIVED REPORT. ASSUMED CARE OF PT AROUND 0730. PT A&O X4, VSS, O2 SAT >90% ON 2L PER NC. PT HAS GRUFF DEMEANOR. FUNERAL PROFESSIONAL IN PLACE TRACING A FLUTTER/AFIB THIS MORNING, PT CONVERTED TO SR AROUND 1150 AND IS STILL IN SR. CARDIZEM GTT DC'D THIS AM, ORAL CARDIZEM GIVEN PER ORDER. AM ASSESSMENT AND VITALS COMPLETED CHARTED. PT TOLERATING DIET. PT SEEN BY WOUND NURSE AND VASCULAR SURGERY - WOUND TO LLE REDRESSED AND PHOTOGRAPHED. CURRENT DRESSING CDI. PT HAS FRIEND AT BEDSIDE. PT USING URINAL TO VOID, URINE DARK YELLOW. IV INTACT. MEDS PER EMAR. PT CURRENTLY SITTING UP IN BED WATCHING TV. FALL PRECAUTIONS IN PLACE. CALL LIGHT IS WITHIN REACH. HOURLY ROUNDING PERFORMED. WCTM FOR DURATION OF SHIFT.
--- NOTE | 2018-07-12 17:23 | EKG ---
[place] [address] ELECTROCARDIOGRAM REPORT Name: PIEDRACARLOTTA Room: [address] ADM IN M.R.#: [id number] Admission: 07/11/18 Attend Phys: Jhon Ramos Discharge: Date of : 54 Report #: [id number] THIS REPORT FOR: //name// [facility] ED Test Date: 2018-07-11 Test Time: 18:31:23 Pat Name: CARLOTTA PIEDRA Department: Room: [facility] Gender: Steel Placer: Cristiana KUMARI : 1950 Requested By: Whitney Vitale Order Number: [id number] MD: Emiliano Webb Measurements Intervals [place] Rate: 97 P: 36 MO: 117 QRS: 43 QRSD: 83 T: 51 QT: 309 QTc: 393 Interpretive Statements Sinus rhythm Borderline short MO interval Compared to ECG 01/13/2018 13:28:02 No significant changes Electronically Signed On 07-12-2018 17:23:21 CDT by Emiliano Webb [email or web address] <ELECTRONICALLY SIGNED> By: Emiliano Webb MD, FACC 07/12/18 1723 183 30 Emiliano Webb MD, [facility] /EPI
--- NOTE | 2018-07-12 17:24 | EKG ---
[place] [address] ELECTROCARDIOGRAM REPORT Name: PIEDRACARLOTTA Room: [address] ADM IN M.R.#: [id number] Admission: 07/11/18 Attend Phys: Jhon Ramos Discharge: Date of : 54 Report #: [id number] THIS REPORT FOR: //name// [facility] Test Date: 2018-07-12 Test Time: 00:07:17 Pat Name: CARLOTTA PIEDRA Department: Room: [address] Gender: M Poker Supervisor: AP : 1950 Requested By: Mee Wallace Order Number: [id number] Savanah MD: Emiliano Webb Measurements Intervals [place] Rate: 154 P: NE: QRS: 41 QRSD: 85 T: 39 QT: 292 QTc: 468 Interpretive Statements Atrial fibrillation with rapid ventricular response Repolarization abnormality, prob rate related Compared to ECG 01/13/2018 13:28:02 Early repolarization now present Sinus rhythm no longer present Electronically Signed On 07-12-2018 17:24:18 CDT by Emiliano Webb [email or web address] <ELECTRONICALLY SIGNED> By: Emiliano Webb MD, FACC 07/12/18 1724 Emiliano Webb MD, FACC /EPI
--- NOTE | 2018-07-12 17:51 | 2DMMODE ---
[place] [address] 2 D/M-MODE ECHOCARDIOGRAM Name: CARLOTTA PIEDRA Room: [address] IN [facility]#: [id number] Admission: 07/11/18 Attend Phys: Mee Wallace Discharge: Date of : 54 Date of Service: 07/12/18 1751 Report #: [id number] THIS REPORT FOR: //name// APPROVED REPORT Study performed: 07/12/2018 10:02:10 EXAM: Comprehensive 2D, Doppler, and color-flow Echocardiogram Patient Location: In-Patient Room #: [facility] Status: routine BSA: 2.03 HR: 78 bpm BP: 129/61 mmHg Rhythm: NSR Other Information Study Quality: Good Indications Atrial Fibrillation 2D Dimensions IVSd: 9.26 (7-11mm) LVOT Diam: 20.48 (18-24mm) LVDd: 47.12 mm PWd: 9.14 (7-11mm) Ascending Ao: 37.48 (22-36mm) LVDs: 25.76 (25-40mm) Aortic Root: 32.82 mm Volumes Left Atrial Volume (Systole) LA ESV Index: 27.50 mL/m2 Aortic Valve AoV Peak Azam.: 1.76 m/s AO Peak Gr.: 12.39 mmHg LVOT Max P.82 mmHg AO Mean Gr.: 6.80 mmHg LVOT Mean P.14 mmHg LVOT Max V: 1.31 m/s AO V2 VTI: 30.67 cm LVOT Mean V: 0.80 m/s GERARDO (VTI): 2.57 cm2 LVOT V1 VTI: 23.97 cm Mitral Valve MV Decel. Time: 196.65 ms MV PHT: 57.03 ms MVA (PHT): 3.86 cm2 [place] [address] 2 D/M-MODE ECHOCARDIOGRAM Name: CARLOTTA PIEDRA Room: [address] IN [facility].#: [id number] Admission: 07/11/18 Attend Phys: Mee Wallace Discharge: Date of : 54 Date of Service: 07/12/18 1751 Report #: [id number] TDI Medial E' Azam.: 0.22 m/s Lateral E' Azam.: 0.16 m/s Pulmonary Valve PV Peak Azam.: 1.23 m/s PV Peak Gr.: 6.04 mmHg Left Ventricle The left ventricle is normal size. There is normal LV segmental wall motion. There is normal left ventricular wall thickness. Left ventricular systolic function is normal. LVEF is 60-65%. This study is not technically sufficient to allow evaluation of the LV diastolic function due to atrial fibrillation. Right Ventricle Right ventricle is dilated. The right ventricular systolic function is normal. Atria The left atrium size is normal. Right atrium is dilated. Aortic Valve The aortic valve is normal in structure. No aortic regurgitation is present. There is no aortic valvular stenosis. Mitral Valve The mitral valve is normal in structure. Trace mitral regurgitation. No evidence of mitral valve stenosis. Tricuspid Valve The tricuspid valve is normal in structure. Trace tricuspid regurgitation. Unable to assess PA pressure. Pulmonic Valve The pulmonary valve is normal in structure. There is no pulmonic valvular regurgitation. Great Vessels The aortic root is normal in size. IVC is normal in size and collapses >50% with inspiration. Pericardium There is no pericardial effusion. <Conclusion> [place] [address] 2 D/M-MODE ECHOCARDIOGRAM Name: CARLOTTA PIEDRA Room: [address] IN [facility]#: [id number] Admission: 07/11/18 Attend Phys: Mee Wallace Discharge: Date of : 54 Date of Service: 07/12/18 1751 Report #: [id number] The left ventricle is normal size. There is normal left ventricular wall thickness. Left ventricular systolic function is normal. LVEF is 60-65%. Trace mitral regurgitation. Trace tricuspid regurgitation. Unable to assess PA pressure. IVC is normal in size and collapses >50% with inspiration. <ELECTRONICALLY SIGNED> By: Emiliano Webb MD, FACC 07/12/181750 50 50 Emiliano Webb MD, FACC /INF
[2018-07-12 20:00] VITALS: BP 131/64
[2018-07-13] VITALS (7 sets, daily range): BP systolic 137–168; BP diastolic 63–95
[2018-07-13 04:35] LABS: HEMATOCRIT 33.3 % (42.0-52.0); HEMOGLOBIN 11.2 gm/dL (14.0-18.0); MCH 33.2 pg (26.0-34.0); MCHC 33.7 g/dL (28.0-37.0); MCV 98.5 fL (80.0-100.0); MPV 8.1 fl. (7.2-11.1); RBC 3.38 mil/uL (4.50-6.00); RDW-CV 15.9 % (10.5-14.5); WBC 14.5 thou/uL (4.0-11.0)
[2018-07-13 04:53] LABS: CREATININE 0.9 mg/dL (0.6-1.3); MAGNESIUM 2.1 mg/dL (1.8-2.4); POTASSIUM 4.5 mmol/L (3.5-5.1)
--- NOTE | 2018-07-13 05:00 | NUR ---
ASSUMED CARE OF PT AFTER REPORT AT 1930. PT A&OX4. VSS. PHYSICAL ASSESSMENT COMPLETED AND CHARTED. PT ON O2 AT 2L AT 95% O2 SAT. PT TRACING SR ON TELE. PT REPORTED UP STANDBY BUT REMAINS ON BED ALL NIGHT. PT COMPLAINED OF LEFT LEG AND RIGHT ABDOMINAL PAIN WITH PAIN SCALE OF 5/10-PAIN MEDS GIVEN PER MAR. PLACED HEATING PAD ON RIGHT LOWER BACK. PT DENIES SOA OR CHEST PAIN. HOURLY ROUNDING OBSERVED. CALL LIGHT WITHIN REACH. BED IN LOW POSITION.
--- NOTE | 2018-07-13 08:00 | NUR ---
RECEIVED REPORT. ASSUMED CARE OF PT AT 0730. VSS. CARDIAC MONTIORING IN PLACE SR. AM ASSESSMENT AND VITALS COMPLETED CHARTED. PT ALERT AND ORIETNED. PT REPORTS WANTING TO SLEEP LONGER THIS AM. PT ON 2L PER NC WITH O2 SAT 95%. IV SALINE LOCKED. PT DENIES ANY PAIN THIS AM. PT INFORMED OF PLAN OF CARE. PT COMMUNICATES UNDERSTANDING. CALL LIGHT IS WITHIN REACH. WILL CONTINUE TO MONITOR FOR DURATION OF SHIFT
--- NOTE | 2018-07-13 18:06 | NUR ---
VSS. CARDIAC MONITORING IN PLACE WITH NO CHANGES THIS SHIFT. PT PROGRESSING TOWARDS GOALS. PT AMBULATING IN HALLS. PT HAS PRODUCTIVE COUGH. IV SALNE LOCKED. PT'S PAIN WELL MANAGED WITH PO PAIN MEDS. PT INFORMED OF PLAN OF CARE. CALL LIGHT IS WITHIN REACH. WILL CONTINUE TO MONITOR FOR DURAITON OF SHFIT.
--- NOTE | 2018-07-13 22:14 | NUR ---
ASSUMED PT CARE AT 1915 REPORT RECEIVED FROM NURSE. PT IS AOX4, PLEASANT, ON 1 L NC AND SATURATION ABOVE 95%. COMPLAIN OF PAIN IN LEFT LOWER EXTREMITY. PAIN LEVEL IS 5. PAIN PILL GIVEN ALONG WITH OTHER SCHEDULED MEDS. VSS. IV LINE IS PATENT. HEATING PAD UNDER BACK IS ON. SINUS RYTHM ON THE MONITOR. WILL CONTINUE TO MONITOR.
[2018-07-13 22:59] LABS: ABSOLUTE BASOPHILS 0.1 thou/uL (0.0-0.2); ABSOLUTE LYMPHOCYTES 0.8 thou/uL (0.8-5.3); ABSOLUTE MONOCYTES 1.3 thou/uL (0.0-1.2); ABSOLUTE NEUTROPHILS 15.4 thou/uL (1.6-8.1); BASOPHILS 0.3 %; HEMATOCRIT 33.3 % (42.0-52.0); HEMOGLOBIN 11.2 gm/dL (14.0-18.0); LYMPHOCYTES 4.8 %; MCH 33.2 pg (26.0-34.0); MCHC 33.8 g/dL (28.0-37.0); MCV 98.3 fL (80.0-100.0); MONOCYTES 7.5 %; MPV 8.2 fl. (7.2-11.1); NUCLEATED RBCS 0 /100WBC; PLATELET COUNT* 372 thou/uL (150-400); POLYS 87.4 %; RBC 3.39 mil/uL (4.50-6.00); RDW-CV 15.4 % (10.5-14.5); WBC 17.7 thou/uL (4.0-11.0)
[2018-07-14 00:26] VITALS: BP 143/68
[2018-07-14 04:16] VITALS: BP 166/85
[2018-07-14 05:30] LABS: CREATININE 0.9 mg/dL (0.6-1.3); MAGNESIUM 2.2 mg/dL (1.8-2.4); POTASSIUM 4.1 mmol/L (3.5-5.1)
--- NOTE | 2018-07-14 08:00 | NUR ---
RECEIVED REPORT. ASSUMED CARE OF PT AT 0730. VSS. CARDIAC MONTIORING IN PLACE SR. AM ASSESSMENT AND VITALS COMPLETED CHARTED. PT ALERT AND ORIETNED. PT ON RA. IV SALINE LOCKED. PT DENIES ANY PAIN OR DISCOMFORT THIS AM. PT IS UP AD FELICITAS IN ROOM. DR. SIMMONS TO SEE PT AND SAID PT COULD DISCHARGE TODAY. PT ANXIOUS TO DISCAHRGE. PT INFORMED OF PLAN OF CARE. CALL LIGHT IS WITHIN REACH. WILL CONTINUE TO MONITOR FOR DURAITON OF SHIFT.
[2018-07-14 08:23] VITALS: BP 157/82
[2018-07-14] MEDS ORDERED: PREDNISONE 10 M10 M1 PO (08:26)
[2018-07-14] MEDS ORDERED: ELIQUIS5 MG PO (08:26)
[2018-07-14] MEDS ORDERED: DILTIAZEM 24HR180 M1 PO (08:26)
[2018-07-14] MEDS ORDERED: FLECAINIDE ACET50 M1 PO ×2 (08:26→16:11)
[2018-07-14] MEDS ORDERED: MUCINEX600 MG PO (08:26)
[2018-07-14] MEDS ORDERED: CEFDINIR300 MG PO (08:26)
[2018-07-14] MEDS ORDERED: AZITHROMYCIN 2250 MG PO (08:26)
--- NOTE | 2018-07-14 09:15 | NUR ---
PT NOTED TO BE IN AFIB RVR ON MONITOR. CARDIOLOGY NOTIFIED. RECIEVED ORDERS TO INCREASE FLECINIDE AND RESTART CARDIZEM GTT TO KEEP HR <100. PT INFORMED OF PLAN OF CARE. WILL CONTINUE TO MOTNIOR FOR DURIATON OF SHIFT.
[2018-07-14 12:00] VITALS: BP 132/75
[2018-07-14 14:01] VITALS: BP 132/75
[2018-07-14] MEDS ORDERED: DILTIAZEM 24HR360 M1 PO (16:10)
--- NOTE | 2018-07-14 16:56 | NUR ---
DISCHARGE ORDERS RECIEVED AND PREPARED. IV AND CARDIAC MONTIORING DISCONTINUED. PT'S HR REMAINED <100 PRIOR TO CARDIAC MONTIORING REMOVAL. PT'S SCRIPTS CALLED IN TO PT'S PHARMACY PER PT REQUEST. PT GIVEN COPY OF DISCAHRGE INSTRCUTIONS AND NEW MEDICAITON INFORMATION SHEETS. PT'S PERSONAL BELONGINGS GATHERED AND SENT HOME WITH PT. PT ESCORTED OFF UNIT WITH NURSING STAFF. PT LEFT IN PRIVATE VEHICLE.
== END 2018-07-14 16:59 | disposition home or self-care (01) | DRG 871 ==
LOC: M.ERS 18:23 → M.TBA-ER 19:41 → M.2W 19:41 → M.ERS 19:41 → M.TBA-ER 20:47 → M.2W 20:47 → M.ERS 20:47 → M.2W 22:16 → M.TBA-ER 22:16 → M.2W 07-14 16:59
PROVIDERS: Internal Medicine; Physician Assistant; ADMIT Internal Medicine
DX: A41.9 Sepsis, unspecified organism (principal); J96.01 Acute respiratory failure with hypoxia; J15.9 Unspecified bacterial pneumonia; J44.1 Chronic obstructive pulmonary disease with (acute) exacerbation; J44.0 Chronic obstructive pulmonary disease with (acute) lower respiratory infection; E87.1 Hypo-osmolality and hyponatremia; I48.0 Paroxysmal atrial fibrillation; M19.90 Unspecified osteoarthritis, unspecified site; I87.2 Venous insufficiency (chronic) (peripheral); F17.210 Nicotine dependence, cigarettes, uncomplicated; B19.20 Unspecified viral hepatitis C without hepatic coma; I73.9 Peripheral vascular disease, unspecified; I65.23 Occlusion and stenosis of bilateral carotid arteries; Z90.49 Acquired absence of other specified parts of digestive tract; Z88.6 Allergy status to analgesic agent; Z91.02 Food additives allergy status; Z79.82 Long term (current) use of aspirin; Z79.899 Other long term (current) drug therapy

== ENCOUNTER → 2018-07-19 | Outpatient (CLI) | payer OTHER ==
[~2018-07-19] MED LIST changes: +ASPIR 8181 MG PO; +AZITHROMYCIN 2250 MG PO; +CEFDINIR300 MG PO; +DILTIAZEM 24HR180 M1 PO; +DILTIAZEM 24HR360 M1 PO; +ELIQUIS5 MG PO; +FLECAINIDE ACET50 M1 PO; +MUCINEX600 MG PO; +PREDNISONE 10 M10 M1 PO
== END ==
LOC: M.WC 03:07
DX: T86.828 Other complications of skin graft (allograft) (autograft) (principal); I70.243 Atherosclerosis of native arteries of left leg with ulceration of ankle; I87.312 Chronic venous hypertension (idiopathic) with ulcer of left lower extremity; L97.322 Non-pressure chronic ulcer of left ankle with fat layer exposed; L84 Corns and callosities; G62.9 Polyneuropathy, unspecified; J44.9 Chronic obstructive pulmonary disease, unspecified; F17.200 Nicotine dependence, unspecified, uncomplicated; Z96.653 Presence of artificial knee joint, bilateral; Y83.2 Surgical operation with anastomosis, bypass or graft as the cause of abnormal reaction of the patient, or of later complication, without mention of misadventure at the time of the procedure

== ENCOUNTER → 2018-07-26 | Outpatient (CLI) | payer OTHER | LOC: M.WC 05:03 | DX: T86.828 Other complications of skin graft (allograft) (autograft) (principal); I87.312 Chronic venous hypertension (idiopathic) with ulcer of left lower extremity; I70.243 Atherosclerosis of native arteries of left leg with ulceration of ankle; L97.321 Non-pressure chronic ulcer of left ankle limited to breakdown of skin; L84 Corns and callosities; G62.9 Polyneuropathy, unspecified; I10 Essential (primary) hypertension; J44.9 Chronic obstructive pulmonary disease, unspecified; F17.200 Nicotine dependence, unspecified, uncomplicated; Z96.653 Presence of artificial knee joint, bilateral; Y83.2 Surgical operation with anastomosis, bypass or graft as the cause of abnormal reaction of the patient, or of later complication, without mention of misadventure at the time of the procedure ==

== ENCOUNTER → 2018-08-02 | Outpatient (CLI) | payer OTHER | LOC: M.WC 05:02 | DX: I87.312 Chronic venous hypertension (idiopathic) with ulcer of left lower extremity (principal); I70.243 Atherosclerosis of native arteries of left leg with ulceration of ankle; L97.821 Non-pressure chronic ulcer of other part of left lower leg limited to breakdown of skin; L84 Corns and callosities; G62.9 Polyneuropathy, unspecified; I10 Essential (primary) hypertension; J44.9 Chronic obstructive pulmonary disease, unspecified; F17.200 Nicotine dependence, unspecified, uncomplicated; Z96.653 Presence of artificial knee joint, bilateral ==

== ENCOUNTER → 2018-08-09 | Outpatient (CLI) | payer OTHER | LOC: M.WC 03:15 | DX: I87.312 Chronic venous hypertension (idiopathic) with ulcer of left lower extremity (principal); I70.243 Atherosclerosis of native arteries of left leg with ulceration of ankle; L97.821 Non-pressure chronic ulcer of other part of left lower leg limited to breakdown of skin; L84 Corns and callosities; G62.9 Polyneuropathy, unspecified; J44.9 Chronic obstructive pulmonary disease, unspecified; F17.200 Nicotine dependence, unspecified, uncomplicated; Z96.653 Presence of artificial knee joint, bilateral ==

== ENCOUNTER → 2018-08-16 | Outpatient (CLI) | payer OTHER | LOC: M.WC 04:29 | DX: I87.312 Chronic venous hypertension (idiopathic) with ulcer of left lower extremity (principal); I70.243 Atherosclerosis of native arteries of left leg with ulceration of ankle; L97.321 Non-pressure chronic ulcer of left ankle limited to breakdown of skin; G62.9 Polyneuropathy, unspecified; I10 Essential (primary) hypertension; J44.9 Chronic obstructive pulmonary disease, unspecified; F17.200 Nicotine dependence, unspecified, uncomplicated; Z96.653 Presence of artificial knee joint, bilateral ==

== ENCOUNTER → 2018-08-23 | Outpatient (CLI) | payer OTHER | LOC: M.WC 02:48 | DX: I87.312 Chronic venous hypertension (idiopathic) with ulcer of left lower extremity (principal); I70.243 Atherosclerosis of native arteries of left leg with ulceration of ankle; L97.321 Non-pressure chronic ulcer of left ankle limited to breakdown of skin; L84 Corns and callosities; G62.9 Polyneuropathy, unspecified; J44.9 Chronic obstructive pulmonary disease, unspecified; F17.200 Nicotine dependence, unspecified, uncomplicated; Z96.653 Presence of artificial knee joint, bilateral ==

== ENCOUNTER → 2018-08-30 | Outpatient (CLI) | payer OTHER | LOC: M.WC 04:37 | DX: I87.312 Chronic venous hypertension (idiopathic) with ulcer of left lower extremity (principal); I70.243 Atherosclerosis of native arteries of left leg with ulceration of ankle; L97.321 Non-pressure chronic ulcer of left ankle limited to breakdown of skin; L84 Corns and callosities; G62.9 Polyneuropathy, unspecified; I10 Essential (primary) hypertension; J44.9 Chronic obstructive pulmonary disease, unspecified; F17.200 Nicotine dependence, unspecified, uncomplicated; Z96.653 Presence of artificial knee joint, bilateral ==

== ENCOUNTER → 2018-09-06 | Outpatient (CLI) | payer OTHER | LOC: M.WC 01:50 | DX: I87.312 Chronic venous hypertension (idiopathic) with ulcer of left lower extremity (principal); I70.243 Atherosclerosis of native arteries of left leg with ulceration of ankle; L97.321 Non-pressure chronic ulcer of left ankle limited to breakdown of skin; L84 Corns and callosities; G62.9 Polyneuropathy, unspecified; J44.9 Chronic obstructive pulmonary disease, unspecified; F17.200 Nicotine dependence, unspecified, uncomplicated; Z96.653 Presence of artificial knee joint, bilateral ==

== ENCOUNTER → 2018-09-13 | Outpatient (CLI) | payer OTHER | LOC: M.WC 08:00 | DX: I87.312 Chronic venous hypertension (idiopathic) with ulcer of left lower extremity (principal); I70.243 Atherosclerosis of native arteries of left leg with ulceration of ankle; L97.321 Non-pressure chronic ulcer of left ankle limited to breakdown of skin; G62.9 Polyneuropathy, unspecified; J44.9 Chronic obstructive pulmonary disease, unspecified; F17.200 Nicotine dependence, unspecified, uncomplicated; Z95.828 Presence of other vascular implants and grafts; Z96.653 Presence of artificial knee joint, bilateral ==

== ENCOUNTER 2018-09-20 03:58 | Emergency (ER) | payer OTHER ==
[~2018-09-20] VITALS: Ht 88.9 cm; Wt 112.0 kg
--- NOTE | ~2018-09-20 | EKG ---
[place] [address] ELECTROCARDIOGRAM REPORT Name: CARLOTTA PIEDRA Room: [facility]#: [id number] Admission: 09/20/18 Attend Phys: Discharge: 09/20/18 Date of : 54 Report #: [id number] THIS REPORT FOR: //name// [facility] ED Test Date: 2018-09-20 Test Time: 04:03:18 Pat Name: CARLOTTA PIEDRA Department: Room: Gender: M Division Operations Specialist: Cristiana KUMARI : 1950 Requested By: Daniel Guerrero Order Number: [id number] MD: Measurements Intervals [place] Rate: 116 P: [place]: QRS: 50 QRSD: 81 T: 56 QT: 306 QTc: 426 Interpretive Statements Atrial fibrillation Borderline ST depression, anterolateral leads Compared to ECG 07/12/2018 00:07:17 ST (T wave) deviation now present Early repolarization no longer present [email or web address] By: [id number] Epiphany EpiphanyMD /EPI
[~2018-09-20 03:58] MED LIST changes: -LEVAQUIN 500 M500 MG PO; -PERCOCET 5-3251 EACH PO; -PREDNISONE 20 M20 M1 PO
[2018-09-20 04:24] LABS: HEMOGLOBIN 12.6 gm/dL (14.0-18.0); MCH 34.5 pg (26.0-34.0); MCV 98.7 fL (80.0-100.0); MPV 7.8 fl. (7.2-11.1); NUCLEATED RBCS 0 /100WBC; PLATELET COUNT* 420 thou/uL (150-400); RBC 3.65 mil/uL (4.50-6.00); RDW-CV 15.5 % (10.5-14.5); WBC 10.2 thou/uL (4.0-11.0)
[2018-09-20 04:33] LABS: ANION GAP 11 mmol/L (7-16); BUN 13 mg/dL (7-18); CHLORIDE 98 mmol/L (98-107); CO2 28 mmol/L (21-32); CREATININE 0.9 mg/dL (0.6-1.3); GLUCOSE 103 mg/dL (70-99); SODIUM 137 mmol/L (136-145)
[2018-09-20 04:35] LABS: APTT 27.3 Seconds (25.0-31.3); PROTIME 10.2 Seconds (9.20-11.50)
[2018-09-20 04:52] LABS: ALBUMIN 3.1 g/dL (3.4-5.0); ALKALINE PHOSPHATASE 208 U/L (46-116); CK-MB MASS 0.8 ng/mL (<0.5-3.6); LIPASE 90 U/L (73-393); NT-PRO BRAIN NAT PEPTIDE 1010 pg/mL (<300); SGOT 47 U/L (15-37); SGPT 83 U/L (30-65); TOTAL BILIRUBIN 0.8 mg/dL (<0.1-1.0); TOTAL PROTEIN 7.3 g/dL (6.4-8.2); TROPONIN-I LEVEL <0.06 ng/mL (<0.06)
[2018-09-20 05:31] LABS: ABSOLUTE EOSINOPHILS 0.1 thou/uL (0.0-0.7); ABSOLUTE LYMPHOCYTES 1.4 thou/uL (0.8-5.3); ABSOLUTE MONOCYTES 0.9 thou/uL (0.0-1.2); ABSOLUTE NEUTROPHILS 7.8 thou/uL (1.6-8.1); ANISOCYTOSIS 1+; PLATELET ESTIMATE INCREASED
[2018-09-20 05:32] LABS: POIKILOCYTOSIS 1+
[2018-09-20] MEDS ORDERED: PERCOCET 5-3251 EACH PO (05:35)
[2018-09-20 05:44] VITALS: BP 146/76
[2018-09-20] MEDS ORDERED: LEVAQUIN 500 M500 MG PO (19:50)
[2018-09-20] MEDS ORDERED: PREDNISONE 20 M20 M1 PO (19:50)
== END 2018-09-20 05:44 | disposition home or self-care (01) ==
LOC: M.ERS 03:58
PROVIDERS: Family Medicine
DX: I48.91 Unspecified atrial fibrillation (principal); J44.9 Chronic obstructive pulmonary disease, unspecified; F17.210 Nicotine dependence, cigarettes, uncomplicated; Z88.6 Allergy status to analgesic agent; Z91.018 Allergy to other foods; Z86.19 Personal history of other infectious and parasitic diseases; Z98.890 Other specified postprocedural states

== ENCOUNTER 2018-09-20 15:19 | Inpatient (IN) | payer OTHER ==
[~2018-09-20] VITALS: Ht 177.8 cm; Wt 83.5 kg
[~2018-09-20 15:19] MED LIST changes: +PERCOCET 5-3251 EACH PO
[2018-09-20 16:37] LABS: HEMATOCRIT 34.6 % (42.0-52.0); HEMOGLOBIN 11.9 gm/dL (14.0-18.0); MCH 34.1 pg (26.0-34.0); MCHC 34.3 g/dL (28.0-37.0); MCV 99.5 fL (80.0-100.0); MPV 7.9 fl. (7.2-11.1); RBC 3.48 mil/uL (4.50-6.00); RDW-CV 15.5 % (10.5-14.5); WBC 10.2 thou/uL (4.0-11.0)
[2018-09-20 16:55] LABS: NT-PRO BRAIN NAT PEPTIDE 1777 pg/mL (<300); TROPONIN-I LEVEL <0.06 ng/mL (<0.06)
[2018-09-20 18:45] LABS: ANION GAP 6 mmol/L (7-16); BUN 11 mg/dL (7-18); CALCIUM 9.1 mg/dL (8.5-10.1); CHLORIDE 98 mmol/L (98-107); CO2 28 mmol/L (21-32); CREATININE 0.9 mg/dL (0.6-1.3); GLUCOSE 102 mg/dL (70-99); POTASSIUM 3.9 mmol/L (3.5-5.1); SODIUM 132 mmol/L (136-145)
[2018-09-20 18:48] LABS: HEMATOCRIT 35.2 % (42.0-52.0); HEMOGLOBIN 11.9 gm/dL (14.0-18.0); MCH 33.8 pg (26.0-34.0); MCHC 33.8 g/dL (28.0-37.0); MCV 99.8 fL (80.0-100.0); MPV 7.8 fl. (7.2-11.1); NUCLEATED RBCS 0 /100WBC; PLATELET COUNT* 390 thou/uL (150-400); RBC 3.53 mil/uL (4.50-6.00); RDW-CV 15.6 % (10.5-14.5); WBC 9.9 thou/uL (4.0-11.0)
[2018-09-20 18:52] LABS: ALBUMIN 2.8 g/dL (3.4-5.0); ALKALINE PHOSPHATASE 176 U/L (46-116); SGOT 45 U/L (15-37); SGPT 89 U/L (30-65); TROPONIN-I LEVEL <0.06 ng/mL (<0.06)
[2018-09-20] MEDS ORDERED: PREDNISONE 20 M20 M1 PO (19:50)
[2018-09-20] MEDS ORDERED: LEVAQUIN 500 M500 MG PO (19:50)
[2018-09-20 19:58] LABS: ABSOLUTE LYMPHOCYTES 0.8 thou/uL (0.8-5.3); ABSOLUTE MONOCYTES 0.7 thou/uL (0.0-1.2); ABSOLUTE NEUTROPHILS 8.4 thou/uL (1.6-8.1)
[2018-09-20 19:59] LABS: PLATELET ESTIMATE ADEQUATE
[2018-09-20 20:55] VITALS: BP 147/70
[2018-09-21] VITALS: BP 152/65
[2018-09-21 04:00] VITALS: BP 146/69
--- NOTE | 2018-09-21 04:05 | NUR ---
RECEIVED REPORT FROM MOHAN TO AT 2046. PT ARRIVED TO UNIT VIA CART AT 2054. PT SPOUSE AT BEDSIDE. NURSING ASSESSMENT COMPLETED. WOUND TO LEFT LOWER LEG, PT REFUSED TO ALLOW THIS NURSE TO UNWRAP AND ASSESS. COAL HANDLING SUPERVISOR IN PLACE, TRACING SINUS RHYTHM. PHYSICIAN CONTACTED TO RESTART HOME MEDS INCLUDING PRN PAIN MEDICATION. HOURLY ROUNDING COMPLETED. CALL LIGHT WITHIN REACH.
[2018-09-21 05:34] LABS: ANION GAP 10 mmol/L (7-16); BUN 14 mg/dL (7-18); CALCIUM 9.4 mg/dL (8.5-10.1); CHLORIDE 102 mmol/L (98-107); CHOLESTEROL 132 mg/dL (<200); CO2 26 mmol/L (21-32); CREATININE 0.8 mg/dL (0.6-1.3); GLUCOSE 158 mg/dL (70-99); HDL CHOLESTEROL 62 mg/dL (>40); LDL CHOLESTEROL 55 mg/dL (<100); MAGNESIUM 2.3 mg/dL (1.8-2.4); POTASSIUM 4.1 mmol/L (3.5-5.1); SODIUM 138 mmol/L (136-145); TC:HDL 2.1 Ratio (Not establshd); TRIGLYCERIDE 79 mg/dL (<150); VLDL 16 mg/dL (<40)
[2018-09-21 05:35] LABS: SERUM ASSESSMENT CLEAR
--- NOTE | 2018-09-21 07:30 | NUR ---
AT 0645, PT HR IRREGULAR 120S-150'S. EKG ORDERED AND COMPLETED, AFIB PER EKG. CARDIOLOGY CONSULT IN PLACE. REPORT GIVEN TO NIKHIL PRESTON. AFIB MEDS THIS AM ON EMAR.
[2018-09-21 07:38] LABS: AMP/METHAMP Negative (Negative); BARBITURATES Negative (Negative); BENZODIAZEPINES Negative (Negative); COCAINE Negative (Negative); METHADONE Negative (Negative); OPIATES POSITIVE (Negative); PCP Negative (Negative); THC Negative (Negative)
[2018-09-21 08:00] VITALS: BP 139/77
--- NOTE | 2018-09-21 12:11 | NUR ---
Pt is A&O. Resides at home with his . Normally independent with ADLs. No DME. No hx of HH or SNF. Pt scheduled to have a stress test today. Goal is home at [place], no needs anticipated.
[2018-09-21 12:19] VITALS: BP 152/67
--- NOTE | 2018-09-21 12:40 | NUR ---
VSS, ASSUMED CARE THIS AM, ASSESSMENT PERFORMED AND CHARTED, FALL PRECAUTIONS IN PLACE AND CALL LIGHT IN REACH, PT IS UP AD FELICITAS, ON 2L NC, STATES PAIN AND 8 OUT OF 10, IN HIS BACK, PT GOAL IS TO WORK WITH PT/OT WALK IN THE ALONSO/UNIT, IMPROVE BREATHING, PT IS TO HAVE STRESS TEST TODAY AROUND 1300, WILL FOLLOW WITH PLAN OF CARE AND HOURLY ROUNDS.
--- NOTE | 2018-09-21 13:11 | NUR ---
Nutrition: Consult received for wound. Pt is seen in outpatient wound clinic. He has ulcer on LLE. in room during visit. Pt usually has good appetite; knows he needs to increase to protein for wound healing. Recommended 75-100g of protein per day. Also recommended MVI use. NPO currently for stress test today. Pt agreed to Anthony - RD ordered. Labs: alb 2.8, prealb 17.7, BNP 1777. H/o COPD, afib. Wt: 248#. Increased nutrient needs R/T wound healing AEB ulcer on LLE. GOALS: Anthony b.i.d., good meal intake once diet advances to Heart Healthy. Mild-low risk.
[2018-09-21 15:52] VITALS: BP 148/70
--- NOTE | 2018-09-21 16:32 | EKG ---
[place] [address] ELECTROCARDIOGRAM REPORT Name: CARLOTTA PIEDRA Room: [address] ADM IN M.R.#: [id number] Admission: 09/20/18 Attend Phys: Davis Velarde MD Discharge: Date of : 54 Report #: [id number] THIS REPORT FOR: //name// [facility] ED Test Date: 2018-09-20 Test Time: 15:25:40 Pat Name: CARLOTTA PIEDRA Department: Room: [address] Gender: M Director Life: [facility] : 1950 Requested By: Whitney Jhaveri Order Number: [id number] Savanah MD: Ángel Iqbal Measurements Intervals [place] Rate: 77 P: 67 [place]: 144 QRS: 51 QRSD: 81 T: 56 QT: 375 QTc: 425 Interpretive Statements Sinus rhythm Probable left atrial enlargement Compared to ECG 09/20/2018 04:03:18 Atrial fibrillation no longer present ST (T wave) deviation no longer present Electronically Signed On 09-21-2018 16:32:31 PRODUCTION DRILLING MACHINE OPERATOR by Ángel Iqbal [email or web address] <ELECTRONICALLY SIGNED> By: Ángel Iqbal MD, [facility] 09/21/18 1632 1525 1525 Ángel Iqbal MD, [facility] /EPI
--- NOTE | 2018-09-21 16:40 | EKG ---
[place] [address] ELECTROCARDIOGRAM REPORT Name: CARLOTTA PIEDRA Room: [address] ADM IN M.R.#: [id number] Admission: 09/20/18 Attend Phys: Davis Velarde MD Discharge: Date of : 54 Report #: [id number] THIS REPORT FOR: //name// [facility] Test Date: 2018-09-21 Test Time: 07:00:43 Pat Name: CARLOTTA PIEDRA Department: Room: [address] Gender: M Interventional Radiologist: BOBBI : 1950 Requested By: Davis Velarde Order Number: [id number] Reading MD: Ángel Iqbal Measurements Intervals [place] Rate: 143 P: [place]: QRS: 37 QRSD: 79 T: 44 QT: 296 QTc: 457 Interpretive Statements Atrial fibrillation Repol abnrm suggests ischemia, anterolateral Baseline wander in lead(s) V4 Compared to ECG 09/20/2018 04:03:18 Early repolarization now present Possible ischemia now present Electronically Signed On 09-21-2018 16:40:08 AUDITOR IN CHARGE by Ángel Iqbal [email or web address] <ELECTRONICALLY SIGNED> By: Ángel Iqbal MD, FACC 09/21/18 1640 9 9 Ángel Iqbal MD, [facility] /EPI
--- NOTE | 2018-09-21 18:05 | NUR ---
LUCAS, PT HAS COMPLETED THE STRESS PART OF HIS 2 PART TEST, HAS WORKED WITH PT/OT, WALKED THE UNIT AND STILL REMAINS IN AFIB ON THE MONITOR, WILL FOLLOW WITH PLAN OF CARE, HOURLY ROUNDS COMPLETED.
[2018-09-21 20:00] VITALS: BP 141/66
[2018-09-21 21:13] LABS: GLYCOHEMOGLOBIN (HGB A1C) 5.7 % (4.8-5.6)
[2018-09-22] VITALS (8 sets, daily range): BP systolic 119–156; BP diastolic 54–83
--- NOTE | 2018-09-22 05:00 | NUR ---
ASSUMED PT CARE AT 1930. NURSING ASSESSMENT COMPLETED AT START OF SHIFT. PT AFIB ON REGIONAL BUSINESS MANAGER WITH HR IN 110'S-140'S AT START OF SHIFT. PT C/O PAIN, PRN PAIN MEDICATION ADMINISTERED, SEE EMAR FOR DOCUMENTATION. PT CONVERTED TO SR WITH HR IN 80-90'S AT APPROX 2300. HOURLY ROUNDING COMPLETED. CALL LIGHT WITHIN REACH.
--- NOTE | 2018-09-22 10:52 | EKG ---
[place] [address] ELECTROCARDIOGRAM REPORT Name: CARLOTTA PIEDRA Room: [address] ADM IN M.R.#: [id number] Admission: 09/20/18 Attend Phys: Davis Velarde MD Discharge: Date of : 54 Report #: [id number] THIS REPORT FOR: //name// [facility] Test Date: 2018-09-22 Test Time: 06:32:11 Pat Name: CARLOTTA PIEDRA Department: Room: [address] Gender: M Straightening Roll Operator: BOBBI : 1950 Requested By: Juan Esquivel Order Number: [id number] Reading MD: Ángel Iqbal Measurements Intervals [place] Rate: 88 P: 61 ID: 127 QRS: 33 QRSD: 89 T: 35 QT: 341 QTc: 413 Interpretive Statements Sinus rhythm Compared to ECG 09/21/2018 07:00:43 Atrial fibrillation no longer present Early repolarization no longer present Possible ischemia no longer present Electronically Signed On 09-22-2018 10:52:19 MANUFACTURING MAINTENANCE MECHANIC by Ángel Iqbal [email or web address] <ELECTRONICALLY SIGNED> By: Ángel Iqbal MD, [facility] 09/22/18 1052 0632 0632 Ángel Iqbal MD, [facility] /EPI
--- NOTE | 2018-09-22 12:21 | NUR ---
VSS, ASSUMED CARE OF PT THIS AM, ASSESSMENT PERFORMED AND CHARTED, FALL PRECAUTIONS IN PLACE AND CALL LIGHT IN REACH, PT IS A&O4, UP AD FELICITAS, STATES PAIN IN BACK RATES IT A 5 OUT OF 10, PT IS ON RA, HIS GOAL IS TO WALK IN ROOM COMPLETED PART TWO OF STRESS TEST, WILL FOLLOW WITH PLAN OF CARE,
--- NOTE | 2018-09-22 16:28 | CARDNUC ---
[place] [address] CARDIAC NUCLEAR IMAGING REPORT Name: CARLOTTA PIEDRA Room: [address] IN [facility]#: [id number] Admission: 09/20/18 Attend Phys: Davis Velrade MD Discharge: Date of : 54 Date of Service: 09/22/18 1628 Report #: [id number] THIS REPORT FOR: //name// APPROVED REPORT Imaging Protocol: Stress Tc-99m/Rest Tc-99m 2 days Study performed: 09/21/2018 08:10:00 Indication: Chest pain Patient Location: In-Patient Room #: 207 Stress Tech: Shelly Ross Stress Nurse: Alexandra Pinon RN NM Tech:MIHIR Ray Ht: 5 ft 10 in Wt: 248 lbs BSA: 2.29 m2 BMI: 35.58 Medical History Medical History: cad, hyperlipidemia, pat Medications: apixaban, flecainide, asa 81, diltiazem Allergies: nkda Cardiac Risk Factors: age, hyperlipidemia, tobacco, family hx Previous Cardiac Procedures: pci Exercise History: Indeterminate Resting Data Rest SPECT myocardial perfusion imaging was performed in supine position 30 minutes following the intravenous injection of 40.8 mCi of Tc-99m Sestamibi. Time of rest injection: 824 Date: 09/22/2018 Time of rest imagin The images were gated to evaluate regional wall motion and calculate left ventricular ejection fraction. Administration Route: IV Administration Site: Right AC Pharmacologic Stress Pharmacologic stress test was performed by injecting Regadenoson 0.4 mg IV push over 10-15 seconds immediately followed by the intravenous injection of 39.3 mCi of Tc-99m Sestamibi. Time of stress injection: 1320 Date: 09/21/2018 Time of stress imagin Administration Route: [place] [address] CARDIAC NUCLEAR IMAGING REPORT Name: CARLOTTA PIEDRA Room: [address] IN [facility]#: [id number] Admission: 09/20/18 Attend Phys: Davis Velarde MD Discharge: Date of : 54 Date of Service: 09/22/18 1628 Report #: [id number] Administration Site: Right AC Gated Stress SPECT was performed 40 minutes after stress injection. The images were gated to evaluate regional wall motion and calculate left ventricular ejection fraction. Prone imaging was performed. Stress Test Details Stress Test: Pharmacologic stress testing performed using 0.4 mg of regadenoson per 5 mL given IV over 10 seconds. Reason for pharmacologic stress test: physical limitation. HR Max Heart Rate (APMHR): 154 bpm Resting HR: 70 bpm Target HR (85% APMHR): 130 bpm Max HR Achieved: 82 bpm % of APMHR: 53 Recovery HR: 79 bpm BP Resting BP: 129/46 mmHg Max BP: 128/36 mmHg Recovery BP: 139/53 mmHg ECG Resting ECG: Sinus Rhythm Stress ECG: Sinus Rhythm ST Change: None Arrhythmia: None Recovery ECG: Sinus Rhythm Recovery ST Change: None Recovery Arrhythmia: None Clinical Reason for Termination: Completed protocol Exercise duration: 0 min sec Exercise capacity: 1 METs The patient tolerated Lexiscan infusion without significant cardiac symptoms. Nurse Comments compazine 5 mg ivp for nausea. pt unsteady gait. unalbe to walk treadmill Stress ECG Conclusion The baseline 12-lead EKG show sinus rhythm with no significant ST or T wave abnormalities. EKGs obtained during and post Lexiscan infusion show sinus rhythm with no significant ST [place] [address] CARDIAC NUCLEAR IMAGING REPORT Name: CARLOTTA PIEDRA Room: [address]#: [id number] Admission: 09/20/18 Attend Phys: Davis Velarde MD Discharge: Date of : 54 Date of Service: 09/22/18 1628 Report #: [id number] compared to baseline. There were no stress-induced arrhythmias. Study Quality Study: Good Artifact: No artifact Study Data At rest, the left ventricular ejection fraction was 73%.. Post stress, the left ventricular ejection was 79%.. TID = 1.01. Perfusion Myocardial perfusion images show no defect to suggest infarct or ischemia. Wall Motion Gated images are technically flawed. Review of raw data base suggest normal LV systolic function without significant wall motion and a Tyson. Nuclear Conclusion ECG Findings: negative for ischemia Clinical Findings: negative for ischemia Nuclear Findings: negative for ischemia Exercise Capacity: not assessed Left Ventricular Function: normal Risk Study: low Myocardial perfusion images show no defect to suggest infarct or ischemia. Left ventricular systolic function appears normal on gated studies. This is a low risk study. <Conclusion> The baseline 12-lead EKG show sinus rhythm with no significant ST or T wave abnormalities. EKGs obtained during and post Lexiscan infusion show sinus rhythm with no significant ST or T wave changes when compared to baseline. There were no stress-induced arrhythmias. <ELECTRONICALLY SIGNED> By: Emiliano Webb MD, FACC 09/22/18 1628 1628 1628 Emiliano Webb MD, FACC /INF
[2018-09-23 03:14] VITALS: BP 135/70
--- NOTE | 2018-09-23 04:18 | NUR ---
ASSUMED PT CARE AT 1930. NURSING ASSESSMENT COMPLETED AT START OF SHIFT. PT NOTED TO BE IN AFIB. HR IN 120'S-160'S. EKG OBTAINED TO CONFIRM AFIB. DR. HORNE PAGED AT 2055. CALL BACK RECEIVED AT 2106. NEW ORDERS RECEIVED FROM CARDIZEM DRIP TRITRATE PER PROTOCOL. PT CONTINUES ON CARDIZEM AT 20 ML/HR. HR DOWN IN 90'S TO 11O'S. BP STABLE. HOURLY ROUNDING COMPLETED. PT C/O PAIN TO LEGS AND BACK. PRN PAIN MEDICATION ADMINISTERED, SEE EMAR FOR DOCUMENTATION. PT NOT PROGRESSING TOWARDS GOALS, CALL LIGHT REMAINS WITHIN REACH.
[2018-09-23 04:52] LABS: HEMOGLOBIN 11.9 gm/dL (14.0-18.0); MCH 33.8 pg (26.0-34.0); MCV 99.5 fL (80.0-100.0); MPV 7.9 fl. (7.2-11.1); RBC 3.52 mil/uL (4.50-6.00); RDW-CV 15.9 % (10.5-14.5); WBC 14.5 thou/uL (4.0-11.0)
[2018-09-23 05:05] LABS: ALBUMIN 2.8 g/dL (3.4-5.0); POTASSIUM 4.7 mmol/L (3.5-5.1); TOTAL BILIRUBIN 0.7 mg/dL (<0.1-1.0); TOTAL PROTEIN 6.3 g/dL (6.4-8.2)
[2018-09-23 08:00] VITALS: BP 130/66
--- NOTE | 2018-09-23 09:59 | NUR ---
ASSUMED PT CARE REPORT RECEIVED FROM NURSE. NURSE MENTIONED THAT PT WENT UP TO 160 S LAST NIGHT .CARDIZEM DRIP STARTED. CARDIZEM DRIP INFUSING NOW AT 20 PER HOUR. PT MEDICATIONS RECEIVED THIS AM ORDERED. CARDIO HAS SIGNEDD OFF FOR THIS PT. HOSPTALIST PAGED AND NURSE NOTIFIED OF NEED FOR TRANSFER MACHINE OPERATOR CONSULT. PT DOES NOT DISPLAY ANY SIGN OF DIZINESS, VSS. NO CHEST PAIN. WILL CONTINUE TO MONITOR PT
[2018-09-23 11:30] VITALS: BP 141/76
--- NOTE | 2018-09-23 12:42 | EKG ---
[place] [address] ELECTROCARDIOGRAM REPORT Name: CARLOTTA PIEDRA Room: [address] ADM IN M.R.#: [id number] Admission: 09/20/18 Attend Phys: Davis Velarde MD Discharge: Date of : 54 Report #: [id number] THIS REPORT FOR: //name// [facility] Test Date: 2018-09-22 Test Time: 20:47:26 Pat Name: CARLOTTA PIEDRA Department: Room: [address] Gender: M Fine Arts Chair: : 1950 Requested By: Juan Esquivel Order Number: [id number] Reading MD: Juan Eqsuivel Measurements Intervals [place] Rate: 141 P: [place]: QRS: 38 QRSD: 83 T: 47 QT: 289 QTc: 443 Interpretive Statements Atrial fibrillation Borderline repolarization abnormality Baseline wander in lead(s) II,III,aVR,aVL,aVF Compared to ECG 09/22/2018 06:32:11 Sinus rhythm no longer present Electronically Signed On 09-23-2018 12:42:04 CULINARY INSTRUCTOR by Juan Esquivel [email or web address] <ELECTRONICALLY SIGNED> By: Juan Esquivel MD, FAC 09/23/18 1242 46 46 Juan Esquivel MD, FAC /EPI
[2018-09-23 16:00] VITALS: BP 137/71
--- NOTE | 2018-09-23 16:32 | NUR ---
EVIN RUIZ CONTINUES. DR ROBB SAW PT THIS AM. GAVE ORDER TO NOTIFY HIM IF HEART RATE 130 AND ABOVE SUSTAINED. PT HR IS MONITORED WITHIN 100 AND 110. IV ABX GIVEN. LASIX GIVEN ORDERED. PT WALKED DOWN THE ALONSO INDEPENDENTLY. NO COMPLAINT OF CHEST PAIN. PT HAS BACK PAIN AND HYDROCODONE WAS GIVEN. WILL CONTINUE TO MONITOR
[2018-09-23 19:41] VITALS: BP 122/70
[2018-09-24] VITALS: BP 136/66
[2018-09-24 03:37] VITALS: BP 116/63
[2018-09-24 04:57] LABS: HEMATOCRIT 34.8 % (42.0-52.0); HEMOGLOBIN 11.8 gm/dL (14.0-18.0); MCH 33.9 pg (26.0-34.0); MCHC 33.9 g/dL (28.0-37.0); MPV 8.1 fl. (7.2-11.1); RBC 3.48 mil/uL (4.50-6.00); RDW-CV 15.9 % (10.5-14.5); WBC 13.4 thou/uL (4.0-11.0)
[2018-09-24 05:17] LABS: ALBUMIN 2.6 g/dL (3.4-5.0); CALCIUM 9.1 mg/dL (8.5-10.1); CREATININE 0.9 mg/dL (0.6-1.3); MAGNESIUM 2.3 mg/dL (1.8-2.4); POTASSIUM 4.3 mmol/L (3.5-5.1); TOTAL BILIRUBIN 0.8 mg/dL (<0.1-1.0); TOTAL PROTEIN 6.7 g/dL (6.4-8.2)
--- NOTE | 2018-09-24 05:58 | NUR ---
RECEIVED REPORT AND ASSUMED CARE AT 1900. VSS. CARDIAC MOITORING IN PLACE. PT DENIES COMPLAINTS OF PAIN. ASSESSMENT COMPLETED CHARTED. DISCUSSED PLAN OF CARE WITH PT, VERBALIZED UNDERSTANDING. PT UP AD FELICITAS, ON RA. PT HAS WOUND TO LLE, NOT OBSERVED. PT REPORTS THAT HE IS BEING SEEN BY WOULD CARE AND IS TO LEAVE HIS DRESSING ON UNTIL WED WHEN IT IS TO BE CHANGED. REFUSING TO HAVE DRESSING REMOVED FOR ASSESSMENT. BED LOCKED IN LOWEST POSITION, CALL LIGHT WITHIN REACH. PT UP IN RECLINER, DOES NOT LIKE TO SLEEP IN THE BED. PT NPO FOR ABD US. HOURLY ROUNDING COMPLETED AND ALL NEEDS MET. WILL CONTINUE TO MONITOR
[2018-09-24 08:00] VITALS: BP 136/71
[2018-09-24 11:52] VITALS: BP 113/71
--- NOTE | 2018-09-24 13:49 | EKG ---
[place] [address] ELECTROCARDIOGRAM REPORT Name: CARLOTTA PIEDRA Room: [address] ADM IN M.R.#: [id number] Admission: 09/20/18 Attend Phys: Davis Velarde MD Discharge: Date of : 54 Report #: [id number] THIS REPORT FOR: //name// [facility] Test Date: 2018-09-23 Test Time: 09:25:52 Pat Name: CARLOTTA PIEDRA Department: Room: [address] Gender: M Snowboarding Instructor: NURY : 1950 Requested By: Juan Esquivel Order Number: [id number] Reading MD: Juan Esquivel Measurements Intervals [place] Rate: 123 P: [place]: QRS: 40 QRSD: 83 T: 44 QT: 290 QTc: 415 Interpretive Statements Atrial fibrillation Minimal ST depression, anterolateral leads Compared to ECG 09/22/2018 20:47:26 ST (T wave) deviation now present Electronically Signed On 09-24-2018 13:48:44 SOLUTIONS DELIVERY CONSULTANT by Juan Esquivel [email or web address] <ELECTRONICALLY SIGNED> By: Juan Esquivel MD, [facility] 09/24/18 1348 0925 0925 Juan Esquivel MD, [facility] /EPI
[2018-09-24 15:42] VITALS: BP 149/70
--- NOTE | 2018-09-24 17:20 | NUR ---
LILLY RUDD CHAIR IN ROOM. HEART RATE CONVERTED TO NSR TODAY WITH RATES OF 80-90. UOP AD FELICITAS. VITAL SIGNS STABEL AND PATIENT IN NOAPPARENT SIGNS OF DISTRESS. HOURLY ROUDING COMPLETD FOR PATIENT SAFETY.
--- NOTE | 2018-09-24 22:11 | NUR ---
RECEIVED REPORT AND ASSUMED CARE AT 1900. VSS. CARDIAC MONITORING IN PLACE. PT REPORTED PAIN BLE, PRN MEDICATION ADMIN PER EMAR. ASSESMENT COMPLETED CHARTED. DISCUSSED PLAN OF CARE WITH PT, VERBALIZED UNDERSTANDING. PT UP AD FELICITAS, ON RA. BED LOCKED IN LOWEST POSITION, CALL LIGHT WITHIN REACH. WILL CONTINUE TO MONITOR
[2018-09-24 23:15] VITALS: BP 169/85
[2018-09-25 01:03] VITALS: BP 150/76
[2018-09-25 03:54] VITALS: BP 139/79
[2018-09-25 04:29] LABS: HEMATOCRIT 36.1 % (42.0-52.0); MCH 33.2 pg (26.0-34.0); MCHC 33.3 g/dL (28.0-37.0); MCV 99.7 fL (80.0-100.0); MPV 8.2 fl. (7.2-11.1); RBC 3.62 mil/uL (4.50-6.00); RDW-CV 15.7 % (10.5-14.5)
[2018-09-25 04:42] LABS: ALBUMIN 2.6 g/dL (3.4-5.0); CALCIUM 9.4 mg/dL (8.5-10.1); CREATININE 0.9 mg/dL (0.6-1.3); POTASSIUM 4.3 mmol/L (3.5-5.1); TOTAL BILIRUBIN 0.8 mg/dL (<0.1-1.0); TOTAL PROTEIN 6.9 g/dL (6.4-8.2)
[2018-09-25 07:43] VITALS: BP 129/77
[2018-09-25 11:51] VITALS: BP 140/76
--- NOTE | 2018-09-25 15:35 | EKG ---
[place] [address] ELECTROCARDIOGRAM REPORT Name: CARLOTTA PIEDRA Room: [address] ADM IN M.R.#: [id number] Admission: 09/20/18 Attend Phys: Davis Velarde MD Discharge: Date of : 54 Report #: [id number] THIS REPORT FOR: //name// [facility] Test Date: 2018-09-24 Test Time: 23:01:50 Pat Name: CARLOTTA PIEDRA Department: Room: [address] Gender: M Medical Technicians: [facility] : 1950 Requested By: Bernard Samuels Order Number: [id number] Savanah GUTIERREZ: Ángel Iqbal Measurements Intervals [place] Rate: 119 P: [place]: QRS: 39 QRSD: 86 T: 23 QT: 305 QTc: 430 Interpretive Statements Atrial fibrillation Compared to ECG 09/23/2018 09:25:52 ST (T wave) deviation no longer present Electronically Signed On 09-25-2018 15:35:35 INSPECTOR FINAL ASSEMBLY ELECTRICAL by Ángel Iqbal [email or web address] <ELECTRONICALLY SIGNED> By: Ángel Iqbal MD, [facility] 09/25/18 1535 00 00 Ángel Iqbal MD, FACC /EPI
--- NOTE | 2018-09-25 15:42 | NUR ---
PT OBSERVED AMB IN ALONSO INDEP. CONTACTED PT AND HE INDICATES UP AD FELICITAS IN ROOM W/O DIFFICULTY. PT DOES NOT FEEL HE NEEDS FURTHER P.T. INTERVENTION. WILL DISCHARGE FROM SERVICE DUE TO SAFE/INDEP GAIT AND PT REQUEST.
[2018-09-25 15:55] VITALS: BP 149/71
--- NOTE | 2018-09-25 17:50 | NUR ---
LILLY RESTING IN BED. UP AD FELICITAS. VITAL SIGNS STABLE. PATIENT IS AFIB/FLUTTER ON MONITOR AND CARDIOLOGY IS ADJUSTING MEDICATIONS FOR RHYTHM CONTROL. LILLY IS TO HAVE MRI TOMORROW AND WILL BE NPO AFTER MIDNINGHT FOR TESTING. HOURLY ROUDNIG COMPLETD FOR PATIENT SAFETY.
[2018-09-25 20:10] VITALS: BP 153/73
[2018-09-26] VITALS (11 sets, daily range): BP systolic 127–167; BP diastolic 62–92
[2018-09-26 05:19] LABS: HEMATOCRIT 36.7 % (42.0-52.0); HEMOGLOBIN 12.4 gm/dL (14.0-18.0); MCH 33.7 pg (26.0-34.0); MCHC 33.7 g/dL (28.0-37.0); NUCLEATED RBCS 1 /100WBC; PLATELET COUNT* 435 thou/uL (150-400); RBC 3.67 mil/uL (4.50-6.00); RDW-CV 15.8 % (10.5-14.5); WBC 16.8 thou/uL (4.0-11.0)
[2018-09-26 05:29] LABS: ALBUMIN 2.4 g/dL (3.4-5.0); POTASSIUM 4.3 mmol/L (3.5-5.1); TOTAL BILIRUBIN 1.1 mg/dL (<0.1-1.0); TOTAL PROTEIN 6.6 g/dL (6.4-8.2)
[2018-09-26 06:04] LABS: PREALBUMIN 17.9 mg/dL (18.0-35.7)
[2018-09-26 07:21] LABS: ABSOLUTE LYMPHOCYTES 2.9 thou/uL (0.8-5.3); ABSOLUTE MONOCYTES 0.8 thou/uL (0.0-1.2); ABSOLUTE NEUTROPHILS 13.1 thou/uL (1.6-8.1); ANISOCYTOSIS 1+; ATYPICAL LYMPHS 7 %; METAMYELOCYTES 2 %; PLATELET ESTIMATE ADEQUATE
--- NOTE | 2018-09-26 07:43 | NUR ---
PT IS ABLE TO COMMUNICATE HIS NEEDS TO STAFF EFFECTIVELY. CURRENT PAIN MEDICATION REGIMEN HAS BEEN MARGINALLY ADEQUATE FOR CONTROLLING HIS PAIN UP TO THIS TIME; BEAUTY SHOP MANAGER OFFERED TO CONTACT MD PLASTIC PARTS FABRICATOR TO ADDRESS HIS PAIN ISSUES, BUT PATIENT SAID IT WOULD BE FINE TO WAIT UNTIL THE MORNING BECAUSE HE WANTED TO SPEAK TO THE MD HIMSELF. PT'S HR WAS ELEVATED (130s) EARLY ON DURING THE JANITORIAL CLEANER AND REMAINED SUSTAINED AT THAT RATE EVEN AFTER PO MEDICATION WAS GIVEN; CARDIZEM GTT WAS BEGUN AND RAN THROUGH THE NIGHT KEEPING HIS HR RIGHT AROUND 100; TOLERATED WELL BY PT.
[2018-09-26 09:09] LABS: HEPATITIS B SURFACE AG Negative (Negative)
--- NOTE | 2018-09-26 09:10 | CON ---
[address] [address] CONSULTATION Name: CARLOTTA PIEDRA Room: [address] IN .R.#: [id number] Admission: 09/20/18 Attend Phys: Davis Velarde MD Discharge: Date of : 54 Report #: [id number] THIS REPORT FOR: //name// CC: Jeremiah Velarde DATE OF SERVICE: 09/25/2018 REASON FOR CONSULTATION: New left adrenal lesion. SUBJECTIVE: A 68-year-old male who has been admitted on 09/20/2018 because of sharp stabbing chest pain with radiation to the left arm, constant, no aggravating or relieving factors. The patient also had shortness of breath and cough. He has been a heavy smoker. On initial evaluation on the first day of admission, the patient was admitted because of chest pain and COPD exacerbation. During his workup, the patient had a CTA, which showed no evidence of PE; however, he had a bronchial opacification of the subsegmental left lower lobe with infiltrates both lower lobes, possible atelectasis/pneumonia. There has been a stable 1.5 cm left lower lobe mass, which has been compared to 09/2017. The patient had also a CT scan of the abdomen, which showed liver cirrhosis; however, there is a 2.8 x 2.1 left adrenal gland nodule concerning of metastatic disease, which was not there on last CT scan. The patient reported some mild headaches and sweating in the last few weeks, he has been a heavy smoker for the last 40-50 years, 2 packs a day. REVIEW OF SYSTEMS: All systems reviewed. It was negative except the above. PAST MEDICAL HISTORY: COPD, AFib, pulmonary nodules. The patient had a colon resection due to diverticulitis, hepatitis C. PAST SURGICAL HISTORY: Left ankle surgery, right knee surgery, appendectomy, tonsillectomy. FAMILY HISTORY: Noncontributory. SOCIAL HISTORY: He is a former smoker, quit less than one year ago; however, he smoked 2 packs for 40-50 years. HOME MEDICATIONS: Per admission list. ALLERGIES: HE IS ALLERGIC TO SWEET POTATO. PHYSICAL EXAMINATION: VITAL SIGNS: Today temperature 36.4, pulse 86, respiration is 15, blood pressure is 140/76, saturations 95% on room air. GENERAL: The patient was sitting in a chair, [place] [address] CONSULTATION Name: CARLOTTA PIEDRA Room: [address] IN [facility]#: [id number] Admission: 09/20/18 Attend Phys: Davis Velarde MD Discharge: Date of : 54 Report #: [id number] LUNGS: Clear to auscultations bilaterally. HEART: Irregularly irregular, S1, S2 within normal limits. ABDOMEN: Soft, nontender, nondistended, bowel sounds positive. IMAGING: As mentioned above. LABORATORY DATA: Today, WBC 15.0, hemoglobin 12.0, platelets 454; creatinine 0.9. ASSESSMENT AND PLAN: A 68-year-old male who has been evaluated because of a newly found incidental left adrenal mass measuring 2.8, was not on the previous CT scan in 09/2017. The CT scan was done without contrast. RECOMMENDATIONS: I would like to obtain an MRI with and without contrast to evaluate this lesion. If still suspicious for adrenal carcinoma, we will discuss the option of biopsy. If not, the other differential diagnosis will be adenoma versus pheochromocytoma. I would like to hold on obtaining the metanephrines and norepinephrine until we have better visualization by the MRI. <ELECTRONICALLY SIGNED> By: My Peguero MD 09/26/18 0910 1241 [id number] Peguero MD /nt
--- NOTE | 2018-09-26 13:02 | NUR ---
WOUND NURSE: PATIENT SEEN TODAY DUE TO PRESENCE OF COMPRESSION WRAP, PLAN TO SEE PATIENT TOMORROW WHEN WRAP IS DUE TO BE CHANGED TO REASSESS WOUND AND DETERMINE PLAN OF CARE PERTAINING TO WOUND.
--- NOTE | 2018-09-26 18:02 | NUR ---
PATIENT RESTING IN BED. VITAL SIGN STABEL. PATIENT HAD CARDIOVERSION TODAY NOTED IN PROCEDURE NOTES. PATIENT CURRENTLY AFIB ON MONITOR AND RECIEVEING AMIODARONE LOADING DOSES. HOURLY ROUNDING COMPLETD FOR PATIENT SAFETY.
[2018-09-27 03:54] VITALS: BP 144/77
[2018-09-27 04:55] LABS: ABSOLUTE EOSINOPHILS 0.2 thou/uL (0.0-0.7); ABSOLUTE LYMPHOCYTES 1.7 thou/uL (0.8-5.3); ABSOLUTE MONOCYTES 1.8 thou/uL (0.0-1.2); ABSOLUTE NEUTROPHILS 11.7 thou/uL (1.6-8.1); BASOPHILS 0.1 %; EOSINOPHILS 1.4 %; HEMOGLOBIN 12.1 gm/dL (14.0-18.0); LYMPHOCYTES 10.9 %; MCH 33.7 pg (26.0-34.0); MCHC 33.6 g/dL (28.0-37.0); MCV 100.4 fL (80.0-100.0); MONOCYTES 11.9 %; NUCLEATED RBCS 0 /100WBC; PLATELET COUNT* 405 thou/uL (150-400); POLYS 75.7 %; RBC 3.58 mil/uL (4.50-6.00); RDW-CV 15.6 % (10.5-14.5); WBC 15.5 thou/uL (4.0-11.0)
[2018-09-27 05:16] LABS: ALBUMIN 2.3 g/dL (3.4-5.0); CALCIUM 8.9 mg/dL (8.5-10.1); CREATININE 0.8 mg/dL (0.6-1.3); POTASSIUM 4.2 mmol/L (3.5-5.1); TOTAL BILIRUBIN 1.2 mg/dL (<0.1-1.0); TOTAL PROTEIN 6.6 g/dL (6.4-8.2)
--- NOTE | 2018-09-27 06:34 | NUR ---
PT IS ABLE TO COMMUNICATE HIS NEEDS TO STAFF EFFECTIVELY. CURRENT PAIN MEDICATION REGIMEN HAS BEEN ADEQUATE FOR CONTROLLING HIS PAIN UP TO THIS TIME. AMIODARONE GTT MAINTAINED DURING THIS SHIFT. MRI ABD/PELVIS RESULTS HAVE NOT BEEN COMMUNICATED TO PT OF YET.
[2018-09-27 08:00] VITALS: BP 151/76
[2018-09-27 11:30] VITALS: BP 156/72
--- NOTE | 2018-09-27 15:30 | NUR ---
WOUND NURSE: PATIENT SEEN TO ADDRESS LESION ON LLE FOR WHICH HE IS BEING SEEN IN WOUND CENTER FOR. THIS VENOUS LEG ULCER IS HEALED. THE SITE IS PROTECTED WITH USE OF BORDERED FOAM DRESSING AND CAROLON 2 PART COMPRESSION STOCKING WHICH WAS APPLIED BY THIS NURSE. PATIENT AND SPOUSE PRESENT AND UNDERSTAND THE USE OF THIS PRODUCT FOR EDEMA CONTROL.
[2018-09-27 16:27] VITALS: BP 143/63
--- NOTE | 2018-09-27 16:51 | NUR ---
MD AND NURSE ATTEMPT TO TURN PT FOR ASSESSMENT OF WOUND TO SACRAL AREA. REFUSES TO TURN. WHEN ATTEMPTED TO TURN PT HE BECAME COMBATIVE,PUNCHING AND CUSSING AT STAFF. PRN MEDS GIVEN PER DR SHAW
--- NOTE | 2018-09-27 17:42 | NUR ---
WILL DISCHARGE PT. FROM [facility] PER PT. REQUEST TO BE OFF OF [facility]. PER PT. AND RN, PT. HAS BEEN UP AMBULATING IN THE HALLWAY. HE SAYS HE CAN GO TO THE BATHROOM ON HIS OWN AND HIS WILL ASSIST HIM WITH LOWER BODY ADLS SUCH DONNING SOCKS AND WASHING FEET. HE DENIES ANY FURTHER NEED FOR O.T. SERVICES.
--- NOTE | 2018-09-27 18:37 | NUR ---
PT UP IN ROOM AND HALLS WITH STEADY GAIT. INTERMITTENT AFIB WITH RATE CONTROLLED THROUGHOUT SHIFT. TOLERATING PO WELL. DENIES CP OR SOA
[2018-09-27 19:45] VITALS: BP 150/74
[2018-09-28] VITALS: BP 151/72
[2018-09-28 04:00] VITALS: BP 141/81
--- NOTE | 2018-09-28 06:56 | NUR ---
RECEIVED REPORT AND ASSUMED CARE AT 1900. VSS. CARDIAC MONITORING IN PLACE. PT REPORT PAIN, PRN MEDICATION ADMIN PER ORDERS. ASSESSMENT COMPLETED CHARTED. DISCUSSED PLAN OF CARE WITH PT, VERBALIZED UNDERSTANDING, PT UP AD FELICITAS IN ROOM, ON RA. HOURLY ROUNDING COMPLETED AND ALL NEEDS MET. NURSING WILL CONTINUE TO MONITOR
[2018-09-28 08:00] VITALS: BP 138/51
--- NOTE | 2018-09-28 10:28 | NUR ---
CHARGE MACHINE OPERATOR SPOKE TO THE PATIENT TO DISCUSS DISCHARGE PLANNING NEEDS AND HH AT D/C. PATIENT INFORMS THAT HE DOES NOT BELIEVE THAT HE WILL NEED HH AND THAT HE IS 'TOO INDEPENDENT FOR THAT'. CM WILL REMAIN AVIALABLE TO ASSIST AND FOLLOW NEEDED.
[2018-09-28 11:59] LABS: ABSOLUTE EOSINOPHILS 0.3 thou/uL (0.0-0.7); ABSOLUTE LYMPHOCYTES 1.4 thou/uL (0.8-5.3); ABSOLUTE NEUTROPHILS 12.4 thou/uL (1.6-8.1); BASOPHILS 0.1 %; EOSINOPHILS 1.6 %; HEMATOCRIT 34.6 % (42.0-52.0); HEMOGLOBIN 11.8 gm/dL (14.0-18.0); LYMPHOCYTES 8.6 %; MCH 33.7 pg (26.0-34.0); MCHC 34.1 g/dL (28.0-37.0); MCV 99.1 fL (80.0-100.0); MONOCYTES 12.3 %; MPV 8.1 fl. (7.2-11.1); NUCLEATED RBCS 1 /100WBC; PLATELET COUNT* 422 thou/uL (150-400); POLYS 77.4 %; RBC 3.49 mil/uL (4.50-6.00); RDW-CV 15.7 % (10.5-14.5)
[2018-09-28 12:10] LABS: ALBUMIN 2.2 g/dL (3.4-5.0); CALCIUM 8.5 mg/dL (8.5-10.1); POTASSIUM 3.8 mmol/L (3.5-5.1); TOTAL BILIRUBIN 1.7 mg/dL (<0.1-1.0); TOTAL PROTEIN 6.6 g/dL (6.4-8.2)
[2018-09-28 12:18] VITALS: BP 139/65
[2018-09-28 15:40] VITALS: BP 140/67
--- NOTE | 2018-09-28 16:36 | NUR ---
PT UP IN ROOM AND HALLS WITH STEADY GAIT. PT REPORTS PAIN RELIEVED BY PO MEDS. TOLERATING PO WELL. EDUCATED ON LOW SODIUM DIET AND FLUID RESTRICTION. PT REPORTS PAIN TO RIGHT UPPER ARM. ICE AND WARM PACKS APPLIED. PT AT AND UPDATED ON PLAN OF CARE
[2018-09-28 20:14] VITALS: BP 133/97
[2018-09-29] VITALS (23 sets, daily range): BP systolic 91–163; BP diastolic 54–74
[2018-09-29 05:05] LABS: ABSOLUTE EOSINOPHILS 0.1 thou/uL (0.0-0.7); ABSOLUTE LYMPHOCYTES 1.3 thou/uL (0.8-5.3); ABSOLUTE MONOCYTES 1.5 thou/uL (0.0-1.2); ABSOLUTE NEUTROPHILS 11.4 thou/uL (1.6-8.1); BASOPHILS 0.1 %; EOSINOPHILS 0.9 %; HEMATOCRIT 34.6 % (42.0-52.0); HEMOGLOBIN 11.7 gm/dL (14.0-18.0); LYMPHOCYTES 8.9 %; MCH 33.6 pg (26.0-34.0); MCHC 33.8 g/dL (28.0-37.0); MCV 99.5 fL (80.0-100.0); MONOCYTES 10.8 %; MPV 8.2 fl. (7.2-11.1); NUCLEATED RBCS 0 /100WBC; PLATELET COUNT* 408 thou/uL (150-400); POLYS 79.3 %; RBC 3.47 mil/uL (4.50-6.00); RDW-CV 15.6 % (10.5-14.5); WBC 14.3 thou/uL (4.0-11.0)
--- NOTE | 2018-09-29 05:25 | NUR ---
RECEIVED REPORT AND ASSUMED CARE AT 1900. VSS. CARDIAC MONITORING IN PLACE. PT REPORTS PAIN, PRN MEDICATION ADMIN PER EMAR. ASSESSMENT COMPLETED CHARTED. DISCUSSED PLAN OF CARE WITH PT. VERBALIZED UNDERSTANDING. NPO AFTER MIDNIGHT FOR LIVER BX. PT UP AD FELICITAS IN ROOM, ON RA. BED LOCKED IN LOWEST POSITION, CALL LIGHT WITHIN REACH. HOURLY ROUNDING COMPELTED AND ALL NEEDS MET. NURSING WILL CONTINUE TO MONITOR
[2018-09-29 05:36] LABS: ALBUMIN 2.3 g/dL (3.4-5.0); CALCIUM 8.8 mg/dL (8.5-10.1); CREATININE 0.8 mg/dL (0.6-1.3); TOTAL BILIRUBIN 1.2 mg/dL (<0.1-1.0); TOTAL PROTEIN 6.1 g/dL (6.4-8.2)
[2018-09-29 14:25] LABS: PROTIME 9.9 Seconds (9.20-11.50)
--- NOTE | 2018-09-29 17:04 | NUR ---
PT DENIES C/O. WOUND NURSE WRAPPED BLE TODAY. PRBC X1 TRANSFUSING NOW, PT TOLERATING WELL. PT UP WITH SBA TO BATHROOM USING WALKER. PT ABLE TO MAKE NEEDS KNOWN, CALL LIGHT IN REACH
--- NOTE | 2018-09-29 17:09 | NUR ---
PT PAIN MANAGED WELL WITH ORDERED PAIN MEDS. PT C/O PAIN IN R FA WHERE IV INFILTRATED 2 DAYS AGO. BAG OF ICE APPLIED FOR COMFORT. AREA SLIGHTLY SWOLLEN. PT HAD LIVER BIOPSY TODAY. BANDAID OVER SITE. NO DRAINAGE NOTED. PT ABLE TO MAKE NEEDS KNOWN, CALL LIGHT IN REACH
--- NOTE | 2018-09-29 22:10 | NUR ---
ASSESSMENT COMPLETE, REFER TO CHARTING FOR DETAILS. TRACING AFLUTTER/SR ON MONITOR. C/O CHRONIC LEG PAIN. PRN OXYCODONE GIVEN WITH PARTIAL RELIEF. PT DENIES ANY FURTHER NEEDS AT THIS TIME. CLWR.
[2018-09-30] VITALS: BP 121/61
[2018-09-30 04:00] VITALS: BP 119/68
[2018-09-30 05:10] LABS: HEMATOCRIT 33.8 % (42.0-52.0); HEMOGLOBIN 11.4 gm/dL (14.0-18.0); MCHC 33.8 g/dL (28.0-37.0); MCV 100.7 fL (80.0-100.0); MPV 8.3 fl. (7.2-11.1); NUCLEATED RBCS 0 /100WBC; PLATELET COUNT* 398 thou/uL (150-400); RBC 3.36 mil/uL (4.50-6.00); RDW-CV 15.6 % (10.5-14.5); WBC 12.2 thou/uL (4.0-11.0)
[2018-09-30 05:11] LABS: PREALBUMIN 13.2 mg/dL (18.0-35.7)
--- NOTE | 2018-09-30 05:19 | NUR ---
PT HAS RESTED WELL T/O THIS SHIFT. PT CONTINUES TO C/O CHRONIC LEG PAIN. PT ALSO C/O SORENESS TO RIGHT ARM FROM INFLITRATED IV SEVERAL DAYS AGO. PT IS CURRENTLY TRACING A FLUTTER ON MONITOR. NO NEW CONERNS AT THIS TIME. CLWR
[2018-09-30 05:21] LABS: ALBUMIN 2.1 g/dL (3.4-5.0); CALCIUM 8.8 mg/dL (8.5-10.1); CREATININE 0.9 mg/dL (0.6-1.3); POTASSIUM 4.2 mmol/L (3.5-5.1); TOTAL BILIRUBIN 0.9 mg/dL (<0.1-1.0); TOTAL PROTEIN 6.6 g/dL (6.4-8.2)
[2018-09-30 07:17] LABS: ABSOLUTE LYMPHOCYTES 3.3 thou/uL (0.8-5.3); ABSOLUTE NEUTROPHILS 7.9 thou/uL (1.6-8.1); ATYPICAL LYMPHS 5 %; METAMYELOCYTES 4 %; PLATELET ESTIMATE ADEQUATE
[2018-09-30 08:00] VITALS: BP 118/64
[2018-09-30] MEDS ORDERED: CARDIZEM CD240 MG PO (10:08)
[2018-09-30] MEDS ORDERED: DIGOXIN125 MCG PO (10:09)
[2018-09-30 12:00] VITALS: BP 120/55
[2018-09-30] MEDS ORDERED: VENTOLIN HFA 1818 GM INH (13:00)
[2018-09-30] MEDS ORDERED: DOXYCYCLINE 10100 MG PO (13:01)
[2018-09-30] MEDS ORDERED: PROTONIX40 M1 PO (13:03)
[2018-09-30] MEDS ORDERED: OXYCODONE HCL10 MG PO (13:04)
[2018-09-30] MEDS ORDERED: PREDNISONE 10 M10 MG PO (13:06)
[2018-09-30] MEDS ORDERED: LASIX 40 MG TAB40 M2 PO (13:07)
[2018-09-30] MEDS ORDERED: POTASSIUM20 PO (13:07)
[2018-09-30 14:20] VITALS: BP 124/66
--- NOTE | 2018-09-30 17:37 | NUR ---
I ASSUMED CARE OF THE PATIENT AT 0700. HE IS ALERT AND ORIENTED X4 AND UP AD FELICITAS. BED IS IN THE LOW LOCKED POSITION AND CALL LIGHT IS IN REACH. HOURLY ROUNDING WAS COMPLETED AND PATIENT NEEDS ARE MET. PAIN IS DENIED. HE FLIPS BETWEEN SR AND FLUTTER. PATIENT IS PROGRESSING TOWARD GOALS AND IS DISCHARGED TO HOME AT 1420 WITH . IV REMOVED INTACT AND DISCHARGE UNDERSTOOD. SCRIPTS CALLED IN TO [facility].
--- NOTE | 2018-10-04 15:16 | CON ---
[facility] [address] [place] [address] CONSULTATION Name: CARLOTTA PIEDRA Room: [address] IN .R.#: [id number] Admission: 09/20/18 Attend Phys: Davis Velarde MD Discharge: 09/30/18 Date of : 54 Report #: [id number] THIS REPORT FOR: //name// CC: Jeremiah Velarde MD DATE OF SERVICE: 09/25/2018 REFERRING PHYSICIAN: Davis Velarde MD REASON FOR CONSULTATION: Chronic hepatitis C infection. IMPRESSION: 1. Compensated cirrhosis secondary to hepatitis C - (no evidence for portal hypertension) and previous alcohol abuse - the patient quit drinking years ago. 2. Hepatitis C virus infection with failed previous treatment for it with interferon and ribavirin years ago. 3. Past history of colon polyps and rectal carcinoid with the patient being overdue for colonoscopy - the patient refuses in 2015. 4. Chronic obstructive pulmonary disease exacerbation with the patient quitting tobacco in the fall of 2017. 5. Chest pain, which is noncardiac, likely related to #4 above - no history to suggest reflux. 6. Paroxysmal atrial fibrillation, requiring chronic anticoagulation. 7. New left adrenal nodule of uncertain significance - oncology consulted regarding the same. 8. Cholelithiasis, asymptomatic. 9. Peripheral vascular disease. RECOMMENDATIONS: 1. We will check a quantitative HCV RNA by PCR, as well as hepatitis C genotype and evaluate for possible treatment. 2. The patient needs to have an upper endoscopy to screen for varices and a colonoscopy due to his personal history of colon polyps and remote history of rectal carcinoid as an outpatient once he has resolved the COPD exacerbation. 3. The patient is up-to-date with imaging of his liver with having had full CT scan of the chest with the liver being visible in abdominal ultrasound this month. 4. Await oncology evaluation. 5. Discussed the findings with the patient as well and he is agreeable to the same. HISTORY OF PRESENT ILLNESS: The patient is a very pleasant 68-year-old white male, well known to me from previous treatment [place] [address] CONSULTATION Name: CARLOTTA PIEDRA Room: [address]#: [id number] Admission: 09/20/18 Attend Phys: Davis Velarde MD Discharge: 09/30/18 Date of : 54 Report #: [id number] was admitted to hospital with complaints of chest pain, shortness of breath and difficulty with breathing. He is admitted to hospital for COPD exacerbation on 09/20 and has been here since that time. He has history of underlying COPD, as well as chronic atrial fibrillation and chronic tobaccoism. However, he did quit smoking over 4 months ago. We are asked to see him for his hepatitis C infection. He has undergone treatment in the past for his hepatitis C infection and unfortunately after treatment was discontinued, he relapsed and recurrent evidence of viral replication. This was years ago. He has not been treated for some time now. He denies complaints referable to his upper or lower GI tract at this point in time. He is overdue for colonoscopy at this time. ALLERGIES: SWEET POTATOES. MEDICATIONS: At home include hydrocodone, apixaban, gabapentin, aspirin, diltiazem, flecainide. PAST MEDICAL HISTORY: Chronic atrial fibrillation, COPD, chronic pain, peripheral vascular disease. He has had chronic hepatitis C infection, which he does not how he got in the past. History of alcohol and tobacco use with him having stopped both of them. He has had left leg wound secondary to peripheral vascular disease. He has had a couple of fingers amputated. He has had previous ankle surgery, knee surgeries bilaterally, history of appendectomy, tonsillectomy. He has had endoscopic evaluation. He has had previous colon resection for diverticular disease as well. SOCIAL HISTORY: The patient is , does not smoke. He quit smoking. He does not drink alcohol at all. FAMILY HISTORY: Negative. PHYSICAL EXAMINATION: GENERAL: A pleasant 68-year-old gentleman who is awake and alert. CARDIOPULMONARY: Revealed a regular rate and rhythm. LUNGS: Clear. ABDOMEN: Soft and not tender. No rebound or guarding noted. LABORATORY DATA: Revealed a white count 9.9, hemoglobin 11.9, platelet count 390,000, MCV is 99.8 and RDW is 15.6. Sodium 132, potassium 3.9, chloride 98, bicarbonate is 28, BUN is 11, creatinine 0.9, GFR is 84. Total bilirubin 1.0, alkaline phosphatase 176, AST 45, ALT 89. His albumin is 2.8. IMAGING DATA: As I mentioned above, the patient underwent a CTA of his chest on 09/20 and he does have emphysema. He does have stable 1.5 cm left lower lobe pulmonary mass. He has had cholelithiasis and as I mentioned above, [place] [address] CONSULTATION Name: CARLOTTA PIEDRA Room: [address] IN .R.#: [id number] Admission: 09/20/18 Attend Phys: Davis Velarde MD Discharge: 09/30/18 Date of : 54 Report #: [id number]. DISCUSSION: At the present time, the patient is not having any issues referable to his upper or lower gastrointestinal tract. We will hold off on any studies other blood test and eventually get him set up for endoscopic evaluations of his upper or lower gastrointestinal tract in the near future. I have discussed the plans with the patient as well and he is agreeable to the same. <ELECTRONICALLY SIGNED> By: Patrice Pal DO 10/04/18 1516 00 2344Patrice Pal DO /nt
== END 2018-09-30 14:21 | disposition home or self-care (01) | DRG 177 ==
LOC: M.ERS 15:19 → M.2W 20:07 → M.TBA-ER 20:07 → M.2W 20:58
PROVIDERS: Internal Medicine; Personal Emergency Response Attendant; Radiology Diagnostic Radiology; ADMIT Family Medicine
PROC: 5A2204Z Restoration of Cardiac Rhythm, Single (ICD-10-PCS; principal; 2018-09-26)
PROC: 0FB03ZX Excision of Liver, Percutaneous Approach, Diagnostic (ICD-10-PCS; 2018-09-29)
DX: J15.6 Pneumonia due to other Gram-negative bacteria (principal); I50.33 Acute on chronic diastolic (congestive) heart failure; J96.21 Acute and chronic respiratory failure with hypoxia; J44.1 Chronic obstructive pulmonary disease with (acute) exacerbation; I13.0 Hypertensive heart and chronic kidney disease with heart failure and stage 1 through stage 4 chronic kidney disease, or unspecified chronic kidney disease; D68.69 Other thrombophilia; J44.0 Chronic obstructive pulmonary disease with (acute) lower respiratory infection; E27.8 Other specified disorders of adrenal gland; I48.0 Paroxysmal atrial fibrillation; B19.20 Unspecified viral hepatitis C without hepatic coma; K74.60 Unspecified cirrhosis of liver; F17.210 Nicotine dependence, cigarettes, uncomplicated; R07.89 Other chest pain; I73.9 Peripheral vascular disease, unspecified; K80.20 Calculus of gallbladder without cholecystitis without obstruction; N18.2 Chronic kidney disease, stage 2 (mild); Z90.49 Acquired absence of other specified parts of digestive tract; Z86.010 Personal history of colon polyps; Z85.040 Personal history of malignant carcinoid tumor of rectum; Z79.01 Long term (current) use of anticoagulants; Z95.820 Peripheral vascular angioplasty status with implants and grafts; Z71.6 Tobacco abuse counseling; Z79.82 Long term (current) use of aspirin; Z79.899 Other long term (current) drug therapy; Z88.5 Allergy status to narcotic agent; Z91.018 Allergy to other foods; Z82.49 Family history of ischemic heart disease and other diseases of the circulatory system; Z81.2 Family history of tobacco abuse and dependence

== ENCOUNTER → 2018-09-20 | Outpatient (CLI) | payer OTHER ==
[~2018-09-20] MED LIST changes: +LEVAQUIN 500 M500 MG PO; +PERCOCET 5-3251 EACH PO; +PREDNISONE 20 M20 M1 PO
== END ==
LOC: M.WC 02:19
DX: I87.312 Chronic venous hypertension (idiopathic) with ulcer of left lower extremity (principal); L97.821 Non-pressure chronic ulcer of other part of left lower leg limited to breakdown of skin; L84 Corns and callosities; J44.9 Chronic obstructive pulmonary disease, unspecified; G62.9 Polyneuropathy, unspecified; F17.200 Nicotine dependence, unspecified, uncomplicated; Z96.653 Presence of artificial knee joint, bilateral

== ENCOUNTER → 2018-10-04 | Outpatient (CLI) | payer OTHER ==
[~2018-10-04] MED LIST changes: +BACTRIM DS TAB1 EACH PO; +CARDIZEM CD240 MG PO; +DIGOXIN125 MCG PO; +DOXYCYCLINE 10100 MG PO; +LASIX 40 MG TAB40 M2 PO; +LEVAQUIN 500 M500 MG PO; +OXYCODONE HCL10 MG PO; +PACERONE 200 M200 M1 PO; +POTASSIUM20 PO; +PREDNISONE 10 M10 MG PO; +PREDNISONE 20 M20 M1 PO; +VENTOLIN HFA 1818 GM INH
== END ==
LOC: M.WC 04:52
DX: I87.312 Chronic venous hypertension (idiopathic) with ulcer of left lower extremity (principal); I70.243 Atherosclerosis of native arteries of left leg with ulceration of ankle; L97.828 Non-pressure chronic ulcer of other part of left lower leg with other specified severity; L84 Corns and callosities; G62.9 Polyneuropathy, unspecified; I10 Essential (primary) hypertension; J44.9 Chronic obstructive pulmonary disease, unspecified; F17.200 Nicotine dependence, unspecified, uncomplicated; Z96.653 Presence of artificial knee joint, bilateral

== ENCOUNTER → 2018-10-05 | Outpatient (CLI) | payer OTHER ==
[2018-10-05] VITALS (14 sets, daily range): BP systolic 111–1119; BP diastolic 51–74
[2018-10-05 10:02] LABS: APTT 29.4 Seconds (25.0-31.3)
== END | disposition home or self-care (01) ==
LOC: M.CL 09:11
PROVIDERS: Internal Medicine Cardiovascular Disease
DX: I48.0 Paroxysmal atrial fibrillation (principal); J44.9 Chronic obstructive pulmonary disease, unspecified; N18.2 Chronic kidney disease, stage 2 (mild); I73.9 Peripheral vascular disease, unspecified; Z79.01 Long term (current) use of anticoagulants; Z87.19 Personal history of other diseases of the digestive system; Z79.891 Long term (current) use of opiate analgesic; Z98.0 Intestinal bypass and anastomosis status; Z79.899 Other long term (current) drug therapy; Z87.891 Personal history of nicotine dependence

== ENCOUNTER → 2018-10-19 | Outpatient (CLI) | payer OTHER ==
[2018-10-19 15:35] LABS: ALBUMIN 2.5 g/dL (3.4-5.0); CALCIUM 8.9 mg/dL (8.5-10.1); CREATININE 1.3 mg/dL (0.6-1.3); TOTAL BILIRUBIN 0.6 mg/dL (<0.1-1.0); TOTAL PROTEIN 6.6 g/dL (6.4-8.2)
== END ==
LOC: M.LAB 14:55
PROVIDERS: Registered Nurse
DX: I48.91 Unspecified atrial fibrillation (principal)

== ENCOUNTER → 2018-10-24 | Outpatient (CLI) | payer OTHER ==
--- NOTE | ~2018-10-24 | HEMONC ---
[address] [address] HEMATOLOGY ONCOLOGY NOTE Name: CARLOTTA PIEDRA Room: [facility].#: [id number] Admission: 10/24/18 Attend Phys: My Peguero MD Discharge: Date of : 54 Report #: [id number] THIS REPORT FOR: //name// CC: My Brown DATE OF SERVICE: 10/24/2018 DIAGNOSIS: Hepatocellular carcinoma. SUBJECTIVE: The patient presented today after he had a liver biopsy, which showed hepatocellular carcinoma, well differentiated with a background of cirrhosis and dysplastic nodules. Prior to that, the patient had a liver MRI to evaluate adrenal mass; however, that was measured 2.9 x 1.9 and not present on the CT scan back in 2014. The liver was enlarged at the level of 26 cm. Slight lobulation with inhomogeneity of T2 signal. There is also diffuse signal anterior left lobe with a large, wedge-shaped area increased T2 compared to the reminder of the liver. That area of abnormal enhancement and irregularity does not appear to represent asymmetric fat. I discussed with the patient and prior to that, I discussed this case with Dr. Pal. The patient is not a candidate for surgery or transplant due to extrahepatic metastases at the left adrenal. I discussed with the patient the systemic treatments including sorafenib and Lenvima as a first line. REVIEW OF SYSTEMS: All systems reviewed. It was negative except the above. PAST MEDICAL, SOCIAL AND FAMILY HISTORY: As mentioned above. PHYSICAL EXAMINATION: VITAL SIGNS: The patient was sitting in chair, was not in acute distress. LUNGS: Clear to auscultations bilaterally. HEART: Regular rate and rhythm. S1, S2 within normal limits. ABDOMEN: Soft, nontender, nondistended. ASSESSMENT AND PLAN: A 68-year-old male who had a prior history of liver cirrhosis due to alcohol/hepatitis C. The patient had incidental left adrenal mass by CT scan that led to liver MRI, which confirmed the abnormal areas in the liver in addition to new left adrenal mass. The patient underwent a biopsy, which showed well-differentiated hepatocellular carcinoma. At this point, the patient is not a candidate for surgery or transplant with extrahepatic metastases. [place] [address] HEMATOLOGY ONCOLOGY NOTE Name: CARLOTTA PIEDRA Room: [facility]#: [id number] Admission: 10/24/18 Attend Phys: My Peguero MD Discharge: Date of : 54 Report #: [id number] mg p.o. daily. We will obtain CBC, CMP, alpha fetoprotein. We will follow up in 2 weeks after initiating his systemic treatment. By: [id number] Peguero MD /nt
[2018-10-24 11:49] LABS: ABSOLUTE EOSINOPHILS 0.2 thou/uL (0.0-0.7); ABSOLUTE LYMPHOCYTES 1.2 thou/uL (0.8-5.3); ABSOLUTE MONOCYTES 0.8 thou/uL (0.0-1.2); BASOPHILS 0.5 %; EOSINOPHILS 3.8 %; HEMATOCRIT 29.7 % (42.0-52.0); HEMOGLOBIN 10.2 gm/dL (14.0-18.0); LYMPHOCYTES 19.2 %; MCH 34.7 pg (26.0-34.0); MCHC 34.5 g/dL (28.0-37.0); MCV 100.4 fL (80.0-100.0); MONOCYTES 12.9 %; MPV 7.9 fl. (7.2-11.1); NUCLEATED RBCS 0 /100WBC; PLATELET COUNT* 358 thou/uL (150-400); POLYS 63.6 %; RBC 2.96 mil/uL (4.50-6.00); RDW-CV 15.6 % (10.5-14.5); WBC 6.3 thou/uL (4.0-11.0)
[2018-10-24 12:00] LABS: ALBUMIN 2.4 g/dL (3.4-5.0); CREATININE 1.3 mg/dL (0.6-1.3); POTASSIUM 3.7 mmol/L (3.5-5.1); TOTAL BILIRUBIN 0.8 mg/dL (<0.1-1.0); TOTAL PROTEIN 6.7 g/dL (6.4-8.2)
== END ==
LOC: M.RTH 04:01
PROVIDERS: Internal Medicine
DX: C22.0 Liver cell carcinoma (principal)

== ENCOUNTER → 2018-11-21 | Outpatient (CLI) | payer OTHER ==
--- NOTE | ~2018-11-21 | HEMONC ---
[address] [address] HEMATOLOGY ONCOLOGY NOTE Name: PIEDRACARLOTTA WEAVER Room: [facility]..#: [id number] Admission: 11/21/18 Attend Phys: My Peguero MD Discharge: Date of : 54 Report #: [id number] THIS REPORT FOR: //name// CC: Dr. 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 Current treatments lenvatinib. SUBJECTIVE: The patient is a 68-year-old male who has been recently diagnosed with metastatic liver cancer with mets to the left adrenal. The patient was started on a tyrosine kinase inhibitor, lenvatinib, at 12 mg for the last 2 weeks. He reported lack of energy with some weight loss. However, in addition to weakness, headaches, he had some also hoarseness of his voice. The patient's reported that the skin rash has been even before starting his medication. Other than this, ascites has been reported to be less compared to prior starting his lenvatinib. His blood pressure medication was a little bit on the higher side. The max reading was 176/86 and lowest was around 130/65. His medications have been reviewed and his Lasix has been changed to every other day. REVIEW OF SYSTEMS: All systems reviewed. It was negative except the above. PAST MEDICAL, SOCIAL, AND FAMILY HISTORY: Unchanged from previous visit. PHYSICAL EXAMINATION: VITAL SIGNS: Today, blood pressure is 153/92, pulse is 68, respirations 20, temperature is 98.5, saturations 95% on room air. GENERAL: The patient was sitting in a chair. He was not in acute distress. LUNGS: Clear to auscultations bilaterally. HEART: Regular rate and rhythm. S1, S2 within normal limits. ABDOMEN: Soft, nontender, nondistended, bowel sounds positive. LABORATORY DATA: Pending for today, CBC, CMP, and urinalysis. ASSESSMENT AND PLAN: A 68-year-old male who has been evaluated and treated for hepatocellular carcinoma. The patient was started on tyrosine kinase inhibitor, lenvatinib, at 12 mg p.o. daily. The patient after 2 weeks has experienced multiple side effects and his blood pressures have been elevated. I advised the patient to hold his treatment for 1 week until all the side effects are recovered, we will dose reduce him to 8 mg p.o. daily. Today, I am going to obtain CBC, CMP, and urinalysis. We [place] [address] HEMATOLOGY ONCOLOGY NOTE Name: CARLOTTA PIEDRA [id number] Admission: 11/21/18 Attend Phys: My Peguero MD Discharge: Date of : 54 Report #: [id number] Webb's office. Followup in 4 weeks. If the patient is able to tolerate dose reduced lenvatinib, the plan is to obtain a CT scan in 8 weeks, if not alternative will be Keytruda infusion every 3 weeks. By: [id number] Peguero MD /eliane
[2018-11-21 10:08] LABS: HEMATOCRIT 30.1 % (42.0-52.0); HEMOGLOBIN 10.4 gm/dL (14.0-18.0); MCH 33.9 pg (26.0-34.0); MCHC 34.6 g/dL (28.0-37.0); MPV 7.2 fl. (7.2-11.1); NUCLEATED RBCS 0 /100WBC; PLATELET COUNT* 638 thou/uL (150-400); RBC 3.07 mil/uL (4.50-6.00); RDW-CV 17.8 % (10.5-14.5); URINE BILIRUBIN NEGATIVE (Negative); URINE BLOOD NEGATIVE (Negative); URINE CLARITY CLEAR; URINE COLOR YELLOW; URINE GLUCOSE-RANDOM NEGATIVE (Negative); URINE KETONES NEGATIVE (Negative); URINE LEUKOCYTES NEGATIVE (Negative); URINE NITRITE NEGATIVE (Negative); URINE PROTEIN NEGATIVE (Negative); WBC 10.3 thou/uL (4.0-11.0)
[2018-11-21 10:27] LABS: ALBUMIN 2.2 g/dL (3.4-5.0); CALCIUM 9.1 mg/dL (8.5-10.1); TOTAL BILIRUBIN 1.1 mg/dL (<0.1-1.0); TOTAL PROTEIN 7.4 g/dL (6.4-8.2)
[2018-11-21 10:34] LABS: POTASSIUM 4.3 mmol/L (3.5-5.1)
[2018-11-21 10:51] LABS: ABSOLUTE EOSINOPHILS 0.5 thou/uL (0.0-0.7); ABSOLUTE LYMPHOCYTES 1.8 thou/uL (0.8-5.3); ABSOLUTE MONOCYTES 0.8 thou/uL (0.0-1.2); ABSOLUTE NEUTROPHILS 7.2 thou/uL (1.6-8.1); PLATELET ESTIMATE INCREASED
[2018-11-21 10:52] LABS: ANISOCYTOSIS 1+; POIKILOCYTOSIS 1+; POLYCHROMASIA 1+
== END ==
LOC: M.RTH 05:01
PROVIDERS: Internal Medicine
DX: C22.0 Liver cell carcinoma (principal); Z79.899 Other long term (current) drug therapy

== ENCOUNTER → 2018-12-12 | Outpatient (CLI) | payer OTHER ==
[2018-12-12 08:19] LABS: ABSOLUTE BASOPHILS 0.1 thou/uL (0.0-0.2); ABSOLUTE EOSINOPHILS 0.3 thou/uL (0.0-0.7); ABSOLUTE LYMPHOCYTES 1.6 thou/uL (0.8-5.3); ABSOLUTE MONOCYTES 0.7 thou/uL (0.0-1.2); ABSOLUTE NEUTROPHILS 3.2 thou/uL (1.6-8.1); BASOPHILS 1.4 %; EOSINOPHILS 5.2 %; HEMATOCRIT 32.3 % (42.0-52.0); LYMPHOCYTES 27.8 %; MCH 33.9 pg (26.0-34.0); MCHC 34.2 g/dL (28.0-37.0); MCV 99.2 fL (80.0-100.0); MONOCYTES 11.4 %; MPV 7.6 fl. (7.2-11.1); NUCLEATED RBCS 0 /100WBC; PLATELET COUNT* 575 thou/uL (150-400); POLYS 54.2 %; RBC 3.25 mil/uL (4.50-6.00); RDW-CV 19.5 % (10.5-14.5); WBC 5.8 thou/uL (4.0-11.0)
[2018-12-12 08:32] LABS: ALBUMIN 2.7 g/dL (3.4-5.0); CALCIUM 9.1 mg/dL (8.5-10.1); CREATININE 1.1 mg/dL (0.6-1.3); POTASSIUM 3.8 mmol/L (3.5-5.1); TOTAL BILIRUBIN 0.9 mg/dL (<0.1-1.0); TOTAL PROTEIN 7.4 g/dL (6.4-8.2)
== END ==
LOC: M.LAB 08:02
PROVIDERS: Internal Medicine
DX: C22.0 Liver cell carcinoma (principal)

== ENCOUNTER → 2018-12-19 | Outpatient (CLI) | payer OTHER ==
--- NOTE | 2018-12-20 08:46 | HEMONC ---
[address] [address] HEMATOLOGY ONCOLOGY NOTE Name: TADEOCARLOTTA WEAVER Room: [facility].#: [id number] Admission: 12/19/18 Attend Phys: My Peguero MD Discharge: Date of : 54 Report #: [id number] THIS REPORT FOR: //name// CC: KHRIS Brown DATE OF SERVICE: 12/19/2018 DIAGNOSIS: Metastatic hepatocellular carcinoma with extrahepatic mets in the adrenal gland, current treatment dose reduced lenvatinib. SUBJECTIVE: The patient presented today as 4 weeks followup. He has been on the low reduced dose of lenvatinib 8 mg p.o. daily. The patient experienced significant improvement in his side effects. He has more energy and less fatigue. His appetite has been improving compared to the first two weeks when he was on 12 mg of lenvatinib. The patient denies any abdominal pain. REVIEW OF SYSTEMS: All systems are reviewed and was negative except the above. PAST MEDICAL, SOCIAL AND FAMILY HISTORY: Unchanged from previous visit. MEDICATION: List has been reviewed. PHYSICAL EXAMINATION: VITAL SIGNS TODAY: Blood pressure is 166/76, pulse is 73, respirations 22, temperature is 97.9, pulse ox is 96% on room air. GENERAL: The patient was sitting in chair, was not in acute distress. LUNGS: Clear to auscultations bilaterally. HEART: Regular rate and rhythm. S1, S2 within normal limits. ABDOMEN: Soft, nontender, nondistended, bowel sounds positive. LABORATORY DATA: WBC 5.8, hemoglobin 11.0, platelets 575. Chemistry: Sodium is 141, potassium 3.8, chloride is 103, creatinine 1.1, AST is 35, ALT is 51, alkaline phosphatase is 118, alpha fetoprotein 3.1. ASSESSMENT AND PLAN: A 68-year-old male diagnosed with hepatocellular carcinoma with adrenal metastases. The patient started on lenvatinib. He is currently on 8 mg p.o. daily. He has been doing very well with this dose. His labs are appropriate. Also, we will obtain first restaging scans before next visit in 4 weeks. We will refill his oxycodone. <ELECTRONICALLY SIGNED> By: My Peguero MD 12/20/18 [id number] [id number] Peguero MD /nt
== END ==
LOC: M.RTH 05:17
DX: C22.0 Liver cell carcinoma (principal); Z79.899 Other long term (current) drug therapy

== ENCOUNTER → 2019-01-17 | Outpatient (CLI) | payer OTHER ==
[2019-01-17 09:24] LABS: ABSOLUTE BASOPHILS 0.1 thou/uL (0.0-0.2); ABSOLUTE EOSINOPHILS 0.3 thou/uL (0.0-0.7); ABSOLUTE LYMPHOCYTES 1.5 thou/uL (0.8-5.3); ABSOLUTE MONOCYTES 0.7 thou/uL (0.0-1.2); ABSOLUTE NEUTROPHILS 3.5 thou/uL (1.6-8.1); BASOPHILS 1.3 %; EOSINOPHILS 4.9 %; HEMATOCRIT 33.4 % (42.0-52.0); HEMOGLOBIN 11.3 gm/dL (14.0-18.0); LYMPHOCYTES 24.4 %; MCH 34.8 pg (26.0-34.0); MCHC 33.8 g/dL (28.0-37.0); MCV 103.2 fL (80.0-100.0); MONOCYTES 11.4 %; NUCLEATED RBCS 0 /100WBC; PLATELET COUNT* 539 thou/uL (150-400); RBC 3.24 mil/uL (4.50-6.00); RDW-CV 20.3 % (10.5-14.5); WBC 5.9 thou/uL (4.0-11.0)
[2019-01-17 09:38] LABS: ALBUMIN 2.8 g/dL (3.4-5.0); CALCIUM 9.2 mg/dL (8.5-10.1); POTASSIUM 4.6 mmol/L (3.5-5.1); TOTAL BILIRUBIN 0.9 mg/dL (<0.1-1.0); TOTAL PROTEIN 7.5 g/dL (6.4-8.2)
[2019-01-17 10:05] LABS: ANISOCYTOSIS 2+; PLATELET ESTIMATE INCREASED
== END ==
LOC: M.LAB 09:03 → M.CT 11:00
PROVIDERS: Internal Medicine
DX: C22.0 Liver cell carcinoma (principal); K74.60 Unspecified cirrhosis of liver; K76.0 Fatty (change of) liver, not elsewhere classified; R16.1 Splenomegaly, not elsewhere classified; J43.9 Emphysema, unspecified; K80.20 Calculus of gallbladder without cholecystitis without obstruction; N28.1 Cyst of kidney, acquired; R91.8 Other nonspecific abnormal finding of lung field

== ENCOUNTER → 2019-01-23 | Outpatient (CLI) | payer OTHER ==
--- NOTE | 2019-01-24 13:01 | HEMONC ---
[address] [address] HEMATOLOGY ONCOLOGY NOTE Name: PIEDRACARLOTTAYE WEAVER Room: [facility].#: [id number] Admission: 01/23/19 Attend Phys: My Peguero MD Discharge: Date of : 54 Report #: [id number] THIS REPORT FOR: //name// CC: My MUHAMMAD PCP DATE OF SERVICE: 01/23/2019 REASON FOR CONSULTATION: Metastatic hepatocellular carcinoma. DISEASE STATUS: Stable disease. CURRENT TREATMENT: Lenvatinib. SUBJECTIVE: The patient presented today as 6 weeks followup. He has been tolerating the current dose of 8 mg of lenvatinib; however, most recently, with a change in the weather, he started feeling more headache with congestion, especially in the sinus area. The patient reported some nasal drainage in addition to that. He denies any fevers. Otherwise, no nausea, vomiting or diarrhea. REVIEW OF SYSTEMS: All systems were reviewed and it was negative except the above. MEDICATIONS: Have been reviewed. PAST MEDICAL, SOCIAL AND FAMILY HISTORY: Unchanged from previous visits. PHYSICAL EXAMINATION: VITAL SIGNS: Blood pressure is 153/84, pulse 76, respirations 20, temperature is 97.3, saturation is 97% on room air. GENERAL: The patient was sitting in chair, was not in acute distress. LUNGS: Clear to auscultation bilaterally. HEART: Regular rate and rhythm. S1, S2 within normal. LABORATORY DATA: Which was available on 01/17/2019, WBC 5.9, hemoglobin 11.3, platelets 539. Creatinine is 1.0, ALT 34, AST is 59, alkaline phosphatase is 104. Alpha fetoprotein 3.2. IMAGING: CT scan of the chest, abdomen and pelvis showed extensive abnormalities in the liver, could have focal necrosis consistent with therapeutic response or regression of disease. The left adrenal mass is similar in size in addition to cirrhosis and splenomegaly. ASSESSMENT AND PLAN: A 68-year-old male with advanced hepatocellular carcinoma with adrenal metastases. The patient has been [place] [address] HEMATOLOGY ONCOLOGY NOTE Name: CARLOTTA PIEDRA Room: [facility] JAYNA Vences#: [id number] Admission: 01/23/19 Attend Phys: My Peguero MD Discharge: Date of : 54 Report #: [id number] as first line, dose reduced was required due to side effects. At this point, the patient continues to tolerate 8 mg of lenvatinib and the first restaging scans showed in general, stable disease/probable therapeutic response. At this point, recommend to continue current treatment. We will obtain labs in 3 weeks and 6 weeks. Follow up in 6 weeks. I am planning to obtain a followup CT scan in 3 months from today. In terms of his headaches more consistent with a sinus headache, I advised the patient to take Flonase and Zyrtec. In addition to that, we will prescribe Augmentin for possible sinusitis. Continue current narcotics with oxycodone with the current regimen. <ELECTRONICALLY SIGNED> By: My Peguero MD 01/24/19 1301 0937 [id number] Peguero MD /nt
== END ==
LOC: M.RTH 07:05
DX: C22.0 Liver cell carcinoma (principal); C79.70 Secondary malignant neoplasm of unspecified adrenal gland; Z79.899 Other long term (current) drug therapy

== ENCOUNTER → 2019-02-12 | Outpatient (CLI) | payer OTHER ==
[2019-02-12 08:33] LABS: ABSOLUTE EOSINOPHILS 0.1 thou/uL (0.0-0.7); ABSOLUTE LYMPHOCYTES 0.8 thou/uL (0.8-5.3); ABSOLUTE MONOCYTES 0.6 thou/uL (0.0-1.2); ABSOLUTE NEUTROPHILS 4.5 thou/uL (1.6-8.1); BASOPHILS 0.8 %; EOSINOPHILS 2.4 %; HEMATOCRIT 30.7 % (42.0-52.0); HEMOGLOBIN 10.7 gm/dL (14.0-18.0); LYMPHOCYTES 13.5 %; MCH 36.7 pg (26.0-34.0); MCHC 34.7 g/dL (28.0-37.0); MCV 105.7 fL (80.0-100.0); MONOCYTES 10.2 %; MPV 8.2 fl. (7.2-11.1); NUCLEATED RBCS 0 /100WBC; PLATELET COUNT* 467 thou/uL (150-400); POLYS 73.1 %; RBC 2.91 mil/uL (4.50-6.00); RDW-CV 19.9 % (10.5-14.5); WBC 6.1 thou/uL (4.0-11.0)
[2019-02-12 08:45] LABS: ALBUMIN 2.8 g/dL (3.4-5.0); CALCIUM 9.1 mg/dL (8.5-10.1); POTASSIUM 4.1 mmol/L (3.5-5.1); TOTAL BILIRUBIN 0.8 mg/dL (<0.1-1.0); TOTAL PROTEIN 7.1 g/dL (6.4-8.2)
== END ==
LOC: M.LAB 08:09
PROVIDERS: Internal Medicine
DX: C22.0 Liver cell carcinoma (principal)

== ENCOUNTER 2019-02-27 21:21 | Inpatient (IN) | payer OTHER ==
[~2019-02-27] VITALS: Ht 180.3 cm; Wt 85.7 kg
[2019-02-27 21:26] VITALS: BP 130/64
[2019-02-27] MEDS ORDERED: MARINOL2.5 MG PO (21:35)
[2019-02-27] MEDS ORDERED: LENVIMA1 EAC1 PO (21:35)
[2019-02-27] MEDS ORDERED: CARTIA XT240 M1 PO (21:36)
[2019-02-27 21:52] LABS: ABSOLUTE BASOPHILS 0.1 thou/uL (0.0-0.2); ABSOLUTE EOSINOPHILS 0.3 thou/uL (0.0-0.7); ABSOLUTE LYMPHOCYTES 1.9 thou/uL (0.8-5.3); ABSOLUTE NEUTROPHILS 5.4 thou/uL (1.6-8.1); BASOPHILS 1.5 %; EOSINOPHILS 3.3 %; HEMATOCRIT 32.1 % (42.0-52.0); HEMOGLOBIN 10.9 gm/dL (14.0-18.0); LYMPHOCYTES 21.9 %; MCH 36.2 pg (26.0-34.0); MCHC 34.1 g/dL (28.0-37.0); MCV 106.1 fL (80.0-100.0); MONOCYTES 11.8 %; MPV 8.2 fl. (7.2-11.1); NUCLEATED RBCS 1 /100WBC; PLATELET COUNT* 783 thou/uL (150-400); POLYS 61.5 %; RBC 3.02 mil/uL (4.50-6.00); RDW-CV 20.2 % (10.5-14.5); WBC 8.8 thou/uL (4.0-11.0)
[2019-02-27 22:03] LABS: ANION GAP 9 mmol/L (7-16); BUN 12 mg/dL (7-18); CALCIUM 8.9 mg/dL (8.5-10.1); CHLORIDE 97 mmol/L (98-107); CO2 28 mmol/L (21-32); CREATININE 0.9 mg/dL (0.6-1.3); GLUCOSE 99 mg/dL (70-99); POTASSIUM 4.2 mmol/L (3.5-5.1); SODIUM 134 mmol/L (136-145)
[2019-02-27 22:14] LABS: ALBUMIN 2.5 g/dL (3.4-5.0); ALKALINE PHOSPHATASE 98 U/L (46-116); NT-PRO BRAIN NAT PEPTIDE 3791 pg/mL (<300); SGOT 24 U/L (15-37); SGPT 32 U/L (30-65); TROPONIN-I LEVEL <0.06 ng/mL (<0.06)
[2019-02-27 22:29] LABS: PLATELET ESTIMATE INCREASED
[2019-02-27 22:30] LABS: ANISOCYTOSIS 2+; LARGE PLATELETS FEW; MACROCYTES 1+; MICROCYTES Occasional
[2019-02-27 22:31] LABS: HYPOCHROMASIA Occasional
[2019-02-28] VITALS (7 sets, daily range): BP systolic 133–158; BP diastolic 60–73
--- NOTE | 2019-02-28 07:02 | NUR ---
THIS NURSE RECEIVED REPORT FROM MOHAN AUSTIN. THIS NURSE TO ASSUME PT CARE AT THIS TIME.
--- NOTE | 2019-02-28 09:19 | NUR ---
DR. GONGORA AT BEDSIDE TALKING WITH PT.
--- NOTE | 2019-02-28 11:00 | EKG ---
[place] [address] ELECTROCARDIOGRAM REPORT Name: CARLOTTA PIEDRA Room: [facility]18 ADM IN .R.#: [id number] Admission: 02/27/19 Attend Phys: Jhon Ramos Discharge: Date of : 54 Report #: [id number] THIS REPORT FOR: //name// [facility] ED Test Date: 2019-02-27 Test Time: 21:28:18 Pat Name: CARLOTTA PIEDRA Department: Room: [facility] Gender: M Gauger Chief Delivery: DENI : 1950 Requested By: Nazanin Mcfadden Order Number: [id number] : Cliff Brown Measurements Intervals [place] Rate: 77 P: SD: QRS: 62 QRSD: 74 T: 63 QT: 383 QTc: 434 Interpretive Statements Atrial fibrillation Compared to ECG 09/24/2018 23:01:50 rate slowed Electronically Signed On 02-28-2019 11:00:15 CDT by Cliff Brown [email or web address] <ELECTRONICALLY SIGNED> By: Cliff Brown MD, [facility] 02/28/19 1100 27 27 Cliff Brown MD, FAC /EPI
--- NOTE | 2019-02-28 11:50 | NUR ---
NURSE NOTED POSSIBLE CHANGE ON TELEMETRY; INVERTED T WAVE THAT WAS NOT PRESENT PRIOR. EKG PERFORMED. NSR WITH NO T WAVE INVERSION NOTED. DR. VELAZQUEZ SIGNED OFF ON EKG.
--- NOTE | 2019-02-28 12:52 | NUR ---
REPORT GIVEN TO MOHAN TAPAI. MOHAN TAPIA TO ASSUME PT CARE INPATIENT NURSE.
--- NOTE | 2019-02-28 14:03 | EKG ---
[place] [address] ELECTROCARDIOGRAM REPORT Name: CRALOTTA PIEDRA Room: [address] ADM IN M.R.#: [id number] Admission: 02/27/19 Attend Phys: Jhon Ramos Discharge: Date of : 54 Report #: [id number] THIS REPORT FOR: //name// [facility] ED Test Date: 2019-02-28 Test Time: 11:46:58 Pat Name: CARLOTTA PIEDRA Department: Room: [facility] Gender: M Technology Architect: : 1950 Requested By: Mee Wallace Order Number: [id number] MD: Cliff Brown Measurements Intervals [place] Rate: 71 P: 52 [place]: 181 QRS: 52 QRSD: 80 T: 56 QT: 364 QTc: 396 Interpretive Statements Sinus rhythm Probable left atrial enlargement Compared to ECG 02/27/2019 21:28:18 Atrial fibrillation no longer present Electronically Signed On 02-28-2019 14:03:36 CDT by Cliff Brown [email or web address] <ELECTRONICALLY SIGNED> By: Cliff Brown MD, [facility] 02/28/19 1403 1146 1146 Cliff Brown MD, [facility] /EPI
--- NOTE | 2019-02-28 18:40 | NUR ---
PT ARRIVED TO ROOM 211 AT APPROX 1315 FROM ER. PT A/O X4, UP AD FELICITAS, RA, VSS, SR ON THE . PT C/O PAIN IN LEFT LEG AND HEAD. PT GIVEN PAIN MEDS PER NOV. PT ALSO C/O NAUSEA. HOME MEDS ORDERED. ADMISSION HX AND ASSESMENT DONE CHARTED. PT HAS CHRONIC WOUND TO LEFT ANKLE, REFER TO WOUND CHARTING. DRESSING CHANGED. PT EDUCATED ON PLAN OF CARE. REVIEWED FALL AGREEMENT WITH PT. WILL CONTINUE TO MONITOR FOR REMAINDER OF THE SHIFT.
--- NOTE | 2019-02-28 18:47 | NUR ---
WOUND CARE NOTE: PT SEEN FOR LEFT ANKLE LESION PT HAS LESION TO OUTER LOREN PROMINENCE OF LEFT ANKLE AND ONE TO THE INNER ASPECT OF THE LEFT ANKLE. PT STATES HE HAS BEEN "FIGHTING" THE WOUND FOR APPROX 20 YEARS SINCE HE HAD A KNEE SURGERY. IT CAUSES A LOT OF PAIN TO THE WHOLE LEG. PT DOES HAVE SOME VASCULAR DISCOLORATION TO THE ANKLE WELL. PULSES ARE 2/2. THE OUTER LOREN PROMINENCE MEASURES 1.2X1.0X0.1, THERE IS GRANULATION TISSUE TO APPROX 10% OF THE WOUND, 90% IS SCARRED AND A SMALL AMOUNT OF DRAINAGE NOTED ON DRESSING REMOVED. THE WOUND TO THE INNER ASPECT OF THE LEFT ANKLE MEASURES 7.0X1.0X0.1, GRANULATION TISSUE TO APPROX 50% OF THE WOUND IS NOTED. WOUND BED PINK WITH A SMALL AMOUNT OF THE DRESSING. PT STATES HIS CHANGES THE DRESSINGS ONCE A WEEK AND THEY USE PURACOL PLUS AG ON THE WOUND. PT STATES HE USED TO GO TO THE WOUND CENTER AND HE FOLLOWS UP WITH HIS DR ONCE A MONTH. THE WOUNDS WERE CLEANSED WITH WOUND CLEANSER, PATTED DRY. APPLIED AQUACEL AG COVERED WITH BOARDERED FOAM AND INNER WOUND WITH ABD. WRAPPED WITH KERLIX AND VINCE BANDAGE. PT DOES HAVE A COMPRESSION SOCK HE CAME IN WITH. I TOLD HIM IF HE PREFERS TO HAVE THAT INSTEAD OF THE VINCE TO LET NURSING KNOW. IT MAY BE PLACED INSTEAD OF THE VINCE BANDAGE. PT TOLERATED THE DRESSING CHANGE WELL. RECCOMEND: WOUND CARE ORDERED. ELEVATE LEGS ENCOURAGE GOOD NUTRITION
[2019-03-01] VITALS: BP 124/54
[2019-03-01 04:00] VITALS: BP 127/52
--- NOTE | 2019-03-01 05:28 | NUR ---
ASSUMED PT CARE AT 1915. SR ON BANKING ASSISTANT. PT C/O PAIN TO LEFT LEG AND H/A THIS SHIFT. PRN PAIN MEDICATIONS ADMINISTERED WITH MINIMAL DECREASE OF PAIN. PT STATES PAIN IS CHRONIC BUT "USUALLY DOES NOT HURT THIS BAD". HOURLY ROUNDING COMPLETED. IVF INFUSING. CALL LIGHT WITHIN REACH. NEGATIVE SEPSIS SCREENING THIS SHIFT.
[2019-03-01 08:00] VITALS: BP 141/63
--- NOTE | 2019-03-01 11:36 | NUR ---
WOUND NURSE: PATIENT SEEN TO ADDRESS LLE AND ANKLE WOUNDS R/T HISTORY OF VENOUS INSUFFICIENCY. LATERAL ANKLE WOUND PRESENTS WITH PARTIAL THICKNESS TISSUE LOSS, PALE PINK TISSUE IN THE WOUND AND LOOSELY ADHERIN LIGHT CRANDALL EXUDATE. THERE IS NO PERIWOUND REDNESS, WARMTH, OR INDURATION. SMALL AMOUNT OF SEROUS DRAINAGE IS NOTED. EDEMA IS CONTROLLED WITH VINCE WRAP FROM TOES TO KNEE. THIS LESION MEASURES 1.0 X 1.5 X 0.1 CM. AT TIME OF ASSESSMENT. LEFT MEDIAL LOWER LEG WOUND MEASURES 6.2 X 0.5 X 0.1 CM. CONTAINS APPROX 80% PINK SKIN AND REMAINING PARTIAL THICKNESS TISSUE LOSS, PINK NONGRANULATING TISSUE WITH SMALL AMOUNT OF LIGHT CRANDALL EXUDATE. THERE IS A SMALL TO MODERATE AMOUNT OF SEROUS DRAINAGE. THERE IS NO PERIWOUND REDNESS, WARMTH, OR INDURATION. ALL WOUNDS CLEANSED WITH WOUND CLEANSER AND GAUZE, APPLIED AQUACEL AG UNDER ABD, THEN WRAPPED WITH KERLEX ROLL GAUZE UNDER VINCE WRAP. THIS WAS TOLERATED WELL BY THE PATIENT. INSTRUCED ON NEED TO ELEVATE MUCH POSSIBLE TO CONTROLL SWELLING. PATIENT STATED HE UNDERSTOOD. ALSO APPLIED MOISTURIZER TO INTACT SKIN TOES TO KNEE.
[2019-03-01 11:54] VITALS: BP 137/54
--- NOTE | 2019-03-01 13:01 | NUR ---
Pt is A&O, a tad bit grumpy. Resides at home with his . Independent. No DME. No hx of HH or SNF. Goal is home at dc, no needs anticipated.
[2019-03-01 15:44] VITALS: BP 115/48
--- NOTE | 2019-03-01 19:00 | NUR ---
RECEIVED REPORT FROM TOVA PRESTON. ASSUMED CARE AROUND 0730. PT A&O X4. VSS. SERVICES MGR IN PLACE TRACING SR WITH NO CHANGES THIS SHIFT. AM ASSESSMENT AND VITALS COMPLTED CHARTED. PT REPORTED LEFT LEG AND HEAD PAIN THAT WAS MANAGED WITH PO, IV AND SUBDERMAL PAIN MEDICATION WITH PARTIAL RELIEF. PT WORKED WITH P.T. THIS SHIFT. IV TO LEFT FA INTACT AND INFUSING BANANA BAG. PT TOLERATING DIET. AND GRANDSON VISITED THIS EVENING. MEDS PER EMAR. DRESSING TO LEFT ANKLE/FOOT CHANGED BY WOUND NURSE THIS SHIFT. PT CURRENTLY SITTING UP IN BEDSIDE CHARIR. LOW FALL RISK PRECAUTIONS ARE IN PLACE. CALL LIGHT IS WITHIN REACH. HOURLY ROUNDING PERFORMED.
[2019-03-01 20:30] VITALS: BP 139/50
[2019-03-02] VITALS: BP 122/53
[2019-03-02 04:00] VITALS: BP 119/60
--- NOTE | 2019-03-02 05:26 | NUR ---
PT. C/O PAIN THROUGHOUT SHIFT. PRN AND SCHEDULED PAIN MEDS GIVEN. PT. UP INDEPENDENTLY. ROOM AIR. BANANA BAG INFUSING AT 40CC/HR. URINAL TO VOID. SINUS RHYTHM ON MONITOR. CALL LIGHT IN REACH, WILL CONTINUE TO MONITOR.
[2019-03-02 05:39] LABS: HEMATOCRIT 28.6 % (42.0-52.0); HEMOGLOBIN 9.6 gm/dL (14.0-18.0); MCH 36.1 pg (26.0-34.0); MCHC 33.7 g/dL (28.0-37.0); MCV 107.3 fL (80.0-100.0); MPV 8.2 fl. (7.2-11.1); RBC 2.66 mil/uL (4.50-6.00); RDW-CV 20.4 % (10.5-14.5); WBC 8.3 thou/uL (4.0-11.0)
[2019-03-02 05:49] LABS: ALBUMIN 2.4 g/dL (3.4-5.0); CALCIUM 8.9 mg/dL (8.5-10.1); CREATININE 0.8 mg/dL (0.6-1.3); POTASSIUM 4.8 mmol/L (3.5-5.1); TOTAL PROTEIN 6.7 g/dL (6.4-8.2)
[2019-03-02 08:24] VITALS: BP 110/50
[2019-03-02] MEDS ORDERED: FOLIC ACID 1 MG1 MG PO (09:18)
[2019-03-02] MEDS ORDERED: B12INJ SUBQ (09:18)
[2019-03-02] MEDS ORDERED: NEEDLE1 EA11 SUBQ (09:28)
[2019-03-02 11:17] VITALS: BP 110/50
--- NOTE | 2019-03-02 12:20 | NUR ---
VSS, ASSUMED CARE IN THE AM, ASSESSMENT PERFORMED AND CHARTED, FALL PRECAUTIONS IN PLACE AND CALL LIGHT IN REACH, PT IS A&O4 AND UP AD FELICITAS, ON RA AND IS TRACING SR ON THE MONITOR, PT STATES PAIN AND HE IS SORE ALL OVER, HIS GOAL IS TO LOWER HIS PAIN, AT THIS TIME I HAVE BEEN GIVEN DISCHARGE ORDERS FILLED OUT MEDICATION SHEETS AND DISCHARGE ORDERS, PT REQUESTED TO HAVE FENTANYL PATCH SCRIPT AND WAS NOT WILLING TO BLACK SCRIPT. PT IV AND TELE MONITOR WAS TAKEN OUT AND ALL BELONGINGS WERE GATHERD AND PLACE WITH PT, PT WAS TAKEN OUT VIA WHEEL CHAIR TO CAR WITH SPOUSE, HOURLY ROUNDS COMPLETED.
--- NOTE | 2019-03-02 12:58 | NUR ---
Nutrition: RD saw pt this morning. Educated on protein supplements as well as liquid supplements like Ensure. She has Boost at home and is wanting to try Beneprotein b/c she feels his protein intake is inadequate. He doesn't eat much meat or fish. 40# wt loss in 6 months d/t cancer. feels he is still losing wt. Current wt: 189#. Pt has already discharged now. Is at high nutrition risk.
--- NOTE | 2019-03-06 09:46 | CON ---
[address] [address] CONSULTATION Name: CARLOTTA PIEDRA Room: [address] IN M.R.#: [id number] Admission: 02/27/19 Attend Phys: Jhon Ramos Discharge: 03/02/19 Date of : 54 Report #: [id number] THIS REPORT FOR: //name// CC: Emiliano Tapia DATE OF SERVICE: 03/01/2019 REASON FOR CONSULTATION: Hepatocellular carcinoma. HISTORY OF PRESENT ILLNESS: The patient is a 69-year-old male who has been started on systemic treatment with a tyrosine kinase inhibitor, Lenvima, with a dose reduction for his hepatocellular carcinoma. The patient's prior CT scan showed stable disease; however, the patient was admitted because of decreased appetite, weight loss, significant fatigue and failure to thrive. 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 His CT abdomen showed that the multiple hepatic lesions demonstrate a very mild interval increase in size prior to examination with hepatic cirrhosis in addition to moderate pelvic ascites. The patient reported that he has been severely tired and he lost around 40 pounds. REVIEW OF SYSTEMS: All system review was negative except the above. PAST MEDICAL HISTORY: COPD, atrial fibrillation, hepatocellular carcinoma, small-bowel obstruction. MEDICATIONS: Per admission list. ALLERGIES: Sweet potatoes. PAST SURGICAL HISTORY: Left ankle surgery, appendectomy, tonsillectomy, broken wrist, colon resection due to diverticulitis, hepatitis C. FAMILY HISTORY: Noncontributory. SOCIAL HISTORY: He is a former smoker 1 pack per day for 45 years. PHYSICAL EXAMINATION: VITAL SIGNS: Today, temperature is 36.4, pulse 75, respirations 16, blood pressure is 115/48, SpO2 was 99% on room air. GENERAL: The patient was sitting in a chair. He looked tired; however, there was no respiratory distress. LUNGS: Decreased breathing sounds bilaterally. HEART: Irregular irregularity. S1, S2 [place] [address] CONSULTATION Name: CARLOTTA PIEDRA Room: [address] IN ..#: [id number] Admission: 02/27/19 Attend Phys: Jhon Ramos Discharge: 03/02/19 Date of : 54 Report #: [id number] ABDOMEN: Soft, mild tenderness at the epigastric area. EXTREMITIES: +1 edema bilaterally. IMAGING: As mentioned above. LABORATORY DATA: Today, WBC 8.8, hemoglobin 10.9, platelet count 783. Sodium is 134, potassium is 4.2, creatinine 0.9, TIBC 357, ferritin 488, B12 of 192, folate is 1.6. ASSESSMENT AND PLAN: A 69-year-old male who was treated for hepatocellular carcinoma, unresected, first line treatment with a dose reduction of Lenvima has been initiated. The prior scan showed stable disease; however, the patient was admitted because of significant weight loss, fatigue, decreased appetite and he had evidence of B12 and folate deficiency. RECOMMENDATIONS: 1. Agree with vitamin supplement at this point. I advised the patient to stop his Lenvima at this point due to possible side effects; however, he is on a dose reduction. 2. Recommend the dietitian evaluation and physical therapy. I would like to arrange for second line treatment for the patient with immunotherapy, Keytruda, which has been approved for second line hepatocellular carcinoma. I discussed these findings with these recommendations with the patient who was agreeable. We will arrange a followup in 1 week from today. <ELECTRONICALLY SIGNED> By: My Peguero MD 03/06/19 0946 1711 [id number] Peguero MD /nt
== END 2019-03-02 12:20 | disposition home or self-care (01) | DRG 435 ==
LOC: M.ERS 21:21 → M.TBA-ER 23:22 → M.2W 02-28 13:09
PROVIDERS: Nurse Practitioner Family; ADMIT Internal Medicine
DX: C22.0 Liver cell carcinoma (principal); E43 Unspecified severe protein-calorie malnutrition; D68.59 Other primary thrombophilia; D64.9 Anemia, unspecified; I48.91 Unspecified atrial fibrillation; I48.2 Chronic atrial fibrillation; R62.7 Adult failure to thrive; G89.29 Other chronic pain; J44.9 Chronic obstructive pulmonary disease, unspecified; I50.9 Heart failure, unspecified; Z90.49 Acquired absence of other specified parts of digestive tract; Z86.19 Personal history of other infectious and parasitic diseases; Z87.891 Personal history of nicotine dependence; Z68.26 Body mass index [BMI] 26.0-26.9, adult; Z79.01 Long term (current) use of anticoagulants; Z79.899 Other long term (current) drug therapy

== ENCOUNTER → 2019-03-06 | Outpatient (CLI) | payer OTHER ==
[~2019-03-06] MED LIST changes: +B12INJ SUBQ; +CARTIA XT240 M1 PO; +FENTANYL PATCH75 MCG TRANSDERM; +FOLIC ACID 1 MG1 MG PO; +KEYTRUDA100 MG/4 M IV; +LENVIMA1 EAC1 PO; +MARINOL2.5 MG PO; +NEEDLE1 EA11 SUBQ; +ONDANSETRON HCL4 M2 PO
--- NOTE | 2019-03-12 13:33 | HEMONC ---
[address] [address] HEMATOLOGY ONCOLOGY NOTE Name: PIEDRACARLOTTA WEAVER Room: [facility].#: [id number] Admission: 03/06/19 Attend Phys: My Peguero MD Discharge: Date of : 54 Report #: [id number] THIS REPORT FOR: //name// CC: My Dorman Tapia DATE OF SERVICE: 03/06/2019 CLINIC NOTE DIAGNOSIS: Hepatocellular carcinoma. SUBJECTIVE: The patient presented today after he was admitted to the hospital because of decreased appetite, weight loss and generalized weakness. I advised the patient to stop his Lenvima. We reviewed his CT scan, which showed slight increase in some of the liver metastases, otherwise stable disease. REVIEW OF SYSTEMS: All systems were reviewed. It was negative except for above. PAST MEDICAL, SOCIAL AND FAMILY HISTORY: Unchanged from last visit. PHYSICAL EXAMINATION: VITAL SIGNS: Today, blood pressure is 125/70, pulse is 80, respirations 24, temperature is 98.4, saturation is 97% on room air. GENERAL: The patient was sitting in chair, was not in acute distress. LUNGS: Decreased breathing sounds bilaterally. ABDOMEN: Mildly distended. Bowel sounds were positive. LABORATORY DATA: Labs on 03/02/2019, WBC 8.3, hemoglobin is 9.6, platelets 643. Sodium is 136, potassium 4.8, BUN is 11, creatinine 0.8. B12 low 192, folate low 1.6. IMAGING: CT of the abdomen on 02/27/2019 showed multiple hepatic lesions demonstrate slight interval increase in size. ASSESSMENT AND PLAN: A 69-year-old male who has been diagnosed with hepatocellular carcinoma, which was metastatic. The patient is not a candidate for liver transplant or local treatment. He started systemic therapy with Lenvima with dose reduction due to side effects. The patient at this point had a slight increase in his liver metastases. He continues to have decreased appetite; however, his appetite improved since stopping the Lenvima, continues to have weakness. 1. Due to all the above reasons, I would like to switch his treatment to Keytruda infusions every 3 weeks. We discussed side effects, so we will arrange for that at the [facility]. Also, [place] [address] HEMATOLOGY ONCOLOGY NOTE Name: CARLOTTA PIEDRA [id number] Admission: 03/06/19 Attend Phys: My Peguero MD Discharge: Date of : 54 Report #: [id number] placement at [facility]. 2. Pain control. I will refill the patient's Fentanyl patch 50 mcg patch every 72 hours in addition to oxycodone every 6 hours as needed. We will arrange for palliative care at home. <ELECTRONICALLY SIGNED> By: My Peguero MD 03/12/19 1333 1131 [id number] sonya Felix
== END ==
LOC: M.RTH 05:48
DX: C22.0 Liver cell carcinoma (principal)

== ENCOUNTER → 2019-03-09 | Outpatient (CLI) | payer OTHER ==
[~2019-03-09] VITALS: Ht 180.3 cm; Wt 81.6 kg
[~2019-03-09] MED LIST changes: +AUGMENTIN 875-1 EACH PO; +CELEXA 20 MG TA20 MG PO; +DURAGESIC1 EAC3 TRANSDERM; +LASIX 40 MG TAB40 M1 PO; +LIDODERM1 EACH TRANSDERM; +OXYCODONE HCL15 MG PO; +SPIRONOLACTONE25 MG PO
[2019-03-09 07:58] VITALS: BP 125/53
[2019-03-09 10:08] VITALS: BP 120/57
[2019-03-09 10:11] VITALS: BP 124/62
== END | disposition home or self-care (01) ==
LOC: M.INT 06:48
DX: Z45.2 Encounter for adjustment and management of vascular access device (principal); C22.9 Malignant neoplasm of liver, not specified as primary or secondary; C74.00 Malignant neoplasm of cortex of unspecified adrenal gland; J44.9 Chronic obstructive pulmonary disease, unspecified; I48.0 Paroxysmal atrial fibrillation; Z98.0 Intestinal bypass and anastomosis status; Z98.890 Other specified postprocedural states; Z79.899 Other long term (current) drug therapy; Z79.01 Long term (current) use of anticoagulants; Z87.891 Personal history of nicotine dependence; Z87.19 Personal history of other diseases of the digestive system; B19.20 Unspecified viral hepatitis C without hepatic coma; Z90.49 Acquired absence of other specified parts of digestive tract; Z79.82 Long term (current) use of aspirin

== ENCOUNTER 2019-03-10 15:30 | Inpatient (IN) | payer OTHER ==
[~2019-03-10] VITALS: Ht 154.9 cm; Wt 100.2 kg
--- NOTE | ~2019-03-10 | CON ---
[address] [address] CONSULTATION Name: CARLOTTA PIEDRA Room: [address] IN M.R.#: [id number] Admission: 03/10/19 Attend Phys: Rogelio Love MD Discharge: Date of : 54 Report #: [id number] THIS REPORT FOR: //name// CC: Rogelio Tapia DO DATE OF SERVICE: 03/11/2019 INPATIENT CONSULTATION PRIMARY CARE PHYSICIAN: Dandy Tapia DO REASON FOR CONSULTATION: History of hepatocellular carcinoma. HISTORY OF PRESENT ILLNESS: The patient is a very pleasant 69-year-old gentleman who was diagnosed with hepatocellular carcinoma upon biopsy of a suspicious liver lesion in 09/2018. The patient does have a history of hepatitis C previously. The patient was kept on first line tyrosine kinase inhibitor for several months until a recent CT scan done in 02/2019 showed mild progression of his liver disease. The patient was therefore started on second line treatment with pembrolizumab, which was given on 03/09/2019, 2 days ago. The patient had a Port-A-Cath placed earlier that day. He started complaining of pain in the right neck and right chest area around the site of the Port-A-Cath along with some redness in the skin. He also has some discomfort and pain in the right upper outer quadrant of the abdomen. He came to the Emergency Room and had labs drawn including troponins, which were negative x 2. His CBC showed WBC count of 6.2 with hemoglobin and hematocrit of 8.5 and 26 respectively, platelet count of 518. His chemistries revealed normal electrolytes and renal and hepatic functions. Chest x-ray shows mild infiltrates in bilateral bases. He was started on broad spectrum antibiotics and on fentanyl every 2 hours as needed for pain. The patient is feeling somewhat better and the redness around his Port-A-Cath site is improved. He does not complain of any headaches, dizziness, nausea, vomiting, constipation, diarrhea, chest pain or palpitations at the time of interview. PAST MEDICAL HISTORY: 1. COPD. 2. Atrial fibrillation. 3. Small-bowel obstruction. 4. Emphysema. 5. Hepatocellular carcinoma. 6. Hepatitis C. PAST SURGICAL HISTORY: 1. [place] [address] CONSULTATION Name: CARLOTTA PIEDRA Room: [address] IN [facility].#: [id number] Admission: 03/10/19 Attend Phys: Rogelio Love MD Discharge: Date of : 54 Report #: [id number] 2. Appendectomy. 3. Tonsillectomy. 4. Broken wrist. 5. Colon resection. 6. Hepatitis C diagnosed several years ago. FAMILY HISTORY: No significant family history of cancers or other hematologic disorders. PERSONAL HISTORY: and lives with his . Currently, nonsmoker and does not use alcohol. ALLERGIES: SWEET POTATOES. CURRENT MEDICATIONS: List was reviewed and reconciled and includes Zosyn, vancomycin, and fentanyl IV q. 2 hours along with p.r.n. medications. REVIEW OF SYSTEMS: A 13-point review of systems was obtained and is negative for any findings except those discussed in the HPI. PHYSICAL EXAMINATION: VITAL SIGNS: Temperature today was 36.7 degrees centigrade, pulse was 80 beats per minute, respiratory rate was 18 breaths per minute, blood pressure 146/58 mmHg with pulse ox of 99% on room air. GENERAL: Awake, alert, oriented x 3, in no apparent distress. HEENT: EOMI/PERRL. LYMPHATIC: No lymphadenopathy in the neck or supraclavicular areas. CHEST: Clear bilaterally. CARDIOVASCULAR: Regular rate and rhythm. ABDOMEN: Soft, bowel sounds positive, mild tenderness in the right upper quadrant. MUSCULOSKELETAL: No significant arthropathy, gait not assessed. NEUROLOGIC: No evidence of any focal neurological deficit. INTEGUMENTARY: Some mild redness along with signs of recent incision at the Port-A-Cath site, which is not open and no discharge seen in the neck or Port-A-Cath site. No systemic rash seen. ASSESSMENT AND PLAN: The patient is a very pleasant 69-year-old male with a history of hepatocellular carcinoma with recent signs of progression and was started on second line treatment with pembrolizumab 2 days ago. He also had a Port-A-Cath placed on the same day. The patient presents with right upper chest discomfort at the site of the Port-A-Cath along with right neck discomfort, which is improved overnight. The patient does have some abdominal discomfort, which is also improved with pain medications. The patient is no code at this time, but is not quite ready for hospice as per [address] [address] CONSULTATION Name: CARLOTTA PIEDRA Room: [address] IN M.R.#: [id number] Admission: 03/10/19 Attend Phys: Rogelio Love MD Discharge: Date of : 54 Report #: [id number] primary inpatient team. This patient's skin changes are improving with broad spectrum antibiotics and given a possibility of underlying pneumonia, I would suggest continuing him on antibiotics for a few days. The patient is not likely to become immunosuppressed as is usually expected with the traditional cytotoxic chemotherapy and therefore is not at a risk for developing neutropenia at this time. I will inform his primary oncologist, Dr. Peguero of his admission in the hospital. We will follow the patient while he is in-house for improvement in his clinical status. His next dose of pembrolizumab would not be for another 2-1/2 weeks. The patient understands this plan and all of his questions were answered to his satisfaction. Thank you for allowing us to participate in the care of this pleasant patient. By: 1744 [id number] De Guzman MD /eliane
[~2019-03-10 15:30] MED LIST changes: -AUGMENTIN 875-1 EACH PO; -CELEXA 20 MG TA20 MG PO; -DURAGESIC1 EAC3 TRANSDERM; -FENTANYL PATCH75 MCG TRANSDERM; -KEYTRUDA100 MG/4 M IV; -LASIX 40 MG TAB40 M1 PO; -LIDODERM1 EACH TRANSDERM; -ONDANSETRON HCL4 M2 PO; -OXYCODONE HCL15 MG PO; -SPIRONOLACTONE25 MG PO
[2019-03-10 15:37] VITALS: BP 119/62
[2019-03-10 16:12] LABS: HEMATOCRIT 25.9 % (42.0-52.0); HEMOGLOBIN 8.7 gm/dL (14.0-18.0); MCH 36.2 pg (26.0-34.0); MCHC 33.6 g/dL (28.0-37.0); MCV 107.7 fL (80.0-100.0); MPV 8.2 fl. (7.2-11.1); NUCLEATED RBCS 1 /100WBC; PLATELET COUNT* 522 thou/uL (150-400); WBC 6.2 thou/uL (4.0-11.0)
[2019-03-10 16:20] LABS: ANION GAP 9 mmol/L (7-16); BUN 11 mg/dL (7-18); CALCIUM 8.8 mg/dL (8.5-10.1); CHLORIDE 100 mmol/L (98-107); CO2 27 mmol/L (21-32); CREATININE 0.8 mg/dL (0.6-1.3); GLUCOSE 122 mg/dL (70-99); POTASSIUM 4.5 mmol/L (3.5-5.1); SODIUM 136 mmol/L (136-145)
[2019-03-10 16:21] LABS: APTT 26.2 Seconds (25.0-31.3); PROTIME 10.5 Seconds (9.20-11.50)
[2019-03-10 16:34] LABS: ALBUMIN 2.4 g/dL (3.4-5.0); ALKALINE PHOSPHATASE 112 U/L (46-116); NT-PRO BRAIN NAT PEPTIDE 2007 pg/mL (<300); SGOT 26 U/L (15-37); SGPT 45 U/L (30-65); TOTAL BILIRUBIN 0.8 mg/dL (<0.1-1.0); TOTAL PROTEIN 6.9 g/dL (6.4-8.2); TROPONIN-I LEVEL <0.06 ng/mL (<0.06)
[2019-03-10] MEDS ORDERED: MARINOL2.5 MG PO (16:34)
[2019-03-10] MEDS ORDERED: ONDANSETRON HCL4 M2 PO (16:40)
[2019-03-10] MEDS ORDERED: FENTANYL PATCH75 MCG TRANSDERM (16:41)
[2019-03-10] MEDS ORDERED: KEYTRUDA100 MG/4 M IV (16:42)
[2019-03-10 16:49] LABS: ABSOLUTE EOSINOPHILS 0.4 thou/uL (0.0-0.7); ABSOLUTE LYMPHOCYTES 0.7 thou/uL (0.8-5.3); ABSOLUTE MONOCYTES 0.6 thou/uL (0.0-1.2); ABSOLUTE NEUTROPHILS 4.5 thou/uL (1.6-8.1); METAMYELOCYTES 2 %
[2019-03-10 16:50] LABS: ANISOCYTOSIS 2+; MACROCYTES 1+; PLATELET ESTIMATE INCREASED
[2019-03-10 17:39] VITALS: BP 95/47
[2019-03-10 18:00] VITALS: BP 121/60
[2019-03-10 20:00] VITALS: BP 127/59
[2019-03-11 00:30] VITALS: BP 139/62
[2019-03-11 04:05] VITALS: BP 139/71
[2019-03-11 05:10] LABS: ABSOLUTE LYMPHOCYTES 0.6 thou/uL (0.8-5.3); ABSOLUTE MONOCYTES 0.4 thou/uL (0.0-1.2); ABSOLUTE NEUTROPHILS 5.2 thou/uL (1.6-8.1); BASOPHILS 0.7 %; EOSINOPHILS 0.2 %; HEMOGLOBIN 8.5 gm/dL (14.0-18.0); LYMPHOCYTES 10.3 %; MCHC 32.8 g/dL (28.0-37.0); MCV 109.6 fL (80.0-100.0); MONOCYTES 6.1 %; MPV 8.2 fl. (7.2-11.1); NUCLEATED RBCS 1 /100WBC; PLATELET COUNT* 518 thou/uL (150-400); POLYS 82.7 %; RBC 2.37 mil/uL (4.50-6.00); RDW-CV 21.1 % (10.5-14.5); WBC 6.2 thou/uL (4.0-11.0)
[2019-03-11 05:22] LABS: CALCIUM 8.5 mg/dL (8.5-10.1); CREATININE 0.7 mg/dL (0.6-1.3); POTASSIUM 4.7 mmol/L (3.5-5.1)
[2019-03-11 06:40] LABS: URINE BILIRUBIN NEGATIVE (Negative); URINE BLOOD NEGATIVE (Negative); URINE CLARITY CLEAR; URINE COLOR YELLOW; URINE GLUCOSE-RANDOM NEGATIVE (Negative); URINE KETONES TRACE (Negative); URINE LEUKOCYTES-REFLEX NEGATIVE (Negative); URINE NITRITE-REFLEX NEGATIVE (Negative); URINE PROTEIN TRACE (Negative); URINE UROBILINOGEN 0.2 E.U./dl (0.2-1.0)
[2019-03-11 07:50] VITALS: BP 146/64
[2019-03-11 13:33] VITALS: BP 132/64
[2019-03-11 17:04] VITALS: BP 146/58
[2019-03-11 20:00] VITALS: BP 131/60
[2019-03-12] VITALS: BP 149/74
[2019-03-12 04:00] VITALS: BP 148/76
[2019-03-12 04:17] LABS: ABSOLUTE BASOPHILS 0.1 thou/uL (0.0-0.2); ABSOLUTE EOSINOPHILS 0.2 thou/uL (0.0-0.7); ABSOLUTE LYMPHOCYTES 1.2 thou/uL (0.8-5.3); ABSOLUTE MONOCYTES 0.6 thou/uL (0.0-1.2); ABSOLUTE NEUTROPHILS 6.7 thou/uL (1.6-8.1); BASOPHILS 0.7 %; EOSINOPHILS 2.8 %; HEMATOCRIT 25.5 % (42.0-52.0); HEMOGLOBIN 8.5 gm/dL (14.0-18.0); LYMPHOCYTES 13.4 %; MCH 36.3 pg (26.0-34.0); MCHC 33.2 g/dL (28.0-37.0); MCV 109.2 fL (80.0-100.0); MONOCYTES 6.6 %; MPV 8.3 fl. (7.2-11.1); NUCLEATED RBCS 1 /100WBC; PLATELET COUNT* 531 thou/uL (150-400); POLYS 76.5 %; RBC 2.33 mil/uL (4.50-6.00); RDW-CV 21.1 % (10.5-14.5); WBC 8.7 thou/uL (4.0-11.0)
[2019-03-12 04:26] LABS: CALCIUM 8.7 mg/dL (8.5-10.1); CREATININE 0.8 mg/dL (0.6-1.3); POTASSIUM 4.3 mmol/L (3.5-5.1)
[2019-03-12 08:06] VITALS: BP 142/65
[2019-03-12 11:37] VITALS: BP 136/60
--- NOTE | 2019-03-12 14:43 | EKG ---
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1950 Requested By: Daniel Guerrero Order Number: [id number] MD: Emiliano Webb Measurements Intervals [place] Rate: 90 P: [place]: QRS: 37 QRSD: 80 T: 43 QT: 337 QTc: 413 Interpretive Statements Atrial fibrillation Abnormal R-wave progression, early transition low voltage in the limb leads Compared to ECG 02/28/2019 11:46:58 Sinus rhythm no longer present Electronically Signed On 03-12-2019 14:42:58 CDT by Emiliano Webb [email or web address] <ELECTRONICALLY SIGNED> By: Emiliano Webb MD, FACC 03/12/19 1442 1541 1541 Emiliano Webb MD, FAC /EPI
[2019-03-12 19:25] VITALS: BP 134/58
[2019-03-13] VITALS: BP 146/69
[2019-03-13 03:40] VITALS: BP 152/72
[2019-03-13 07:43] VITALS: BP 148/64
[2019-03-13] MEDS ORDERED: AUGMENTIN 875-1 EACH PO (11:36)
[2019-03-13 11:37] VITALS: BP 148/64
[2019-03-13] MEDS ORDERED: OXYCODONE HCL10 MG PO (11:52)
--- NOTE | 2019-03-13 15:54 | EKG ---
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
== END 2019-03-13 12:55 | disposition home or self-care (01) | DRG 177 ==
LOC: M.ERS 15:30 → M.TBA-ER 16:57 → M.2W 16:57
PROVIDERS: Family Medicine; ADMIT Internal Medicine
DX: J69.0 Pneumonitis due to inhalation of food and vomit (principal); E43 Unspecified severe protein-calorie malnutrition; C22.0 Liver cell carcinoma; Z68.41 Body mass index [BMI] 40.0-44.9, adult; B19.20 Unspecified viral hepatitis C without hepatic coma; I48.91 Unspecified atrial fibrillation; J43.9 Emphysema, unspecified; R62.7 Adult failure to thrive; M19.90 Unspecified osteoarthritis, unspecified site; D64.9 Anemia, unspecified; I73.9 Peripheral vascular disease, unspecified; Z79.82 Long term (current) use of aspirin; Z79.899 Other long term (current) drug therapy; Z91.018 Allergy to other foods; Z95.820 Peripheral vascular angioplasty status with implants and grafts; Z90.49 Acquired absence of other specified parts of digestive tract

== ENCOUNTER 2019-03-18 20:22 | Inpatient (IN) | payer OTHER ==
[~2019-03-18] VITALS: Ht 180.3 cm; Wt 97.1 kg
[~2019-03-18 20:22] MED LIST changes: +AUGMENTIN 875-1 EACH PO; +FENTANYL PATCH75 MCG TRANSDERM; +KEYTRUDA100 MG/4 M IV; +ONDANSETRON HCL4 M2 PO
[2019-03-18 20:30] VITALS: BP 145/68
[2019-03-18 20:51] LABS: HEMATOCRIT 27.6 % (42.0-52.0); HEMOGLOBIN 9.2 gm/dL (14.0-18.0); MCH 36.7 pg (26.0-34.0); MCHC 33.2 g/dL (28.0-37.0); MCV 110.5 fL (80.0-100.0); MPV 7.8 fl. (7.2-11.1); NUCLEATED RBCS 1 /100WBC; PLATELET COUNT* 456 thou/uL (150-400); RDW-CV 21.6 % (10.5-14.5); WBC 6.8 thou/uL (4.0-11.0)
[2019-03-18 21:04] LABS: ANION GAP 10 mmol/L (7-16); BUN 11 mg/dL (7-18); CALCIUM 8.6 mg/dL (8.5-10.1); CHLORIDE 102 mmol/L (98-107); CO2 28 mmol/L (21-32); CREATININE 0.9 mg/dL (0.6-1.3); GLUCOSE 100 mg/dL (70-99); POTASSIUM 4.6 mmol/L (3.5-5.1); SODIUM 140 mmol/L (136-145)
[2019-03-18 21:05] LABS: APTT 28.8 Seconds (25.0-31.3); PROTIME 10.7 Seconds (9.20-11.50)
[2019-03-18 21:19] LABS: ABSOLUTE EOSINOPHILS 0.3 thou/uL (0.0-0.7); ABSOLUTE LYMPHOCYTES 1.3 thou/uL (0.8-5.3); ABSOLUTE MONOCYTES 0.5 thou/uL (0.0-1.2); ABSOLUTE NEUTROPHILS 4.8 thou/uL (1.6-8.1); PLATELET ESTIMATE ADEQUATE
[2019-03-18 21:28] LABS: ALBUMIN 2.4 g/dL (3.4-5.0); ALKALINE PHOSPHATASE 130 U/L (46-116); CK-MB MASS < 0.5 ng/mL (<0.5-3.6); LIPASE 62 U/L (73-393); MAGNESIUM 2.2 mg/dL (1.8-2.4); NT-PRO BRAIN NAT PEPTIDE 2853 pg/mL (<300); SGOT 22 U/L (15-37); SGPT 46 U/L (30-65); TOTAL BILIRUBIN 0.8 mg/dL (<0.1-1.0); TOTAL PROTEIN 6.7 g/dL (6.4-8.2); TROPONIN-I LEVEL <0.06 ng/mL (<0.06)
[2019-03-18 22:15] VITALS: BP 155/67
[2019-03-18 22:30] VITALS: BP 127/47
[2019-03-19 04:00] VITALS: BP 123/59
--- NOTE | 2019-03-19 05:40 | NUR ---
PT ARRIVED FROM ED AROUND 2229. ASSESSMENT COMPLETED CHARTED. AT BEDSIDE HELPING TO ANSWER QUESTIONS. PT WAS BEING RUDE TO STAFF AND , WAS TRYING TO GET PT TO CALM DOWN, THEN PT WOULD TELL HER TO SHUT UP. C/O GENERALIZED PAIN AND GAVE PRN PAIN MEDICATIONS PER MAR. HAS WOUNDS ON LLE AND WOULDNT LET THIS NURSE UNWRAP LEG TO LOOK AT THEM. PT LEGS AND FEET HAVE EDEMA +3. UP WITH STANDBY ASSIST BUT REFUSES BED ALARM. RIGHT CHEST PORT ACCESSED AND WORKING. MEDS RESTARTED. ABLE TO MAKE NEEDS KNOWN. PT RESTING IN RECLINER AT THIS TIME. WILL CONTINUE TO MONITOR.
[2019-03-19 07:55] VITALS: BP 128/56
--- NOTE | 2019-03-19 09:10 | NUR ---
ASSUMED CARE OF PT AT 0730. PT RESTING IN RECLINER WAITING FOR BREAKFAST. AT BEDSIDE. PT A&0X4, COMPLAINS OF GENERALIZED PAIN. TREATED WITH PRN OXY WITH PARTIAL RELIEF. PT TRACING SR ON THE MACHINE INKER. 3+ EDEMA NOTED TO BILATERAL LE'S. PT ON 2L NC SAT 98%. PT DENIES ANY SHORTNESS OF BREATH. PT UP WITH SBA TO BATHROOM. VOIDS PER URINAL. PT GOAL FOR TODAY IS WOUND CARE CONSULT, PAIN MGMT AND IV LASIX. AM ASSESSMENT CHARTED. MEDICATIONS PER MAR. PT REPOSITIONS SELF. HOURLY ROUNDING OBSERVED. BED IN LOW POSITION. CALL LIGHT WITHIN REACH. WILL CONTINUE PLAN OF CARE.
--- NOTE | 2019-03-19 10:56 | EKG ---
[place] [address] ELECTROCARDIOGRAM REPORT Name: CARLOTTA PIEDRA Room: [address] ADM IN .R.#: [id number] Admission: 03/18/19 Attend Phys: Rogelio Love MD Discharge: Date of : 54 Report #: [id number] THIS REPORT FOR: //name// [facility] ED Test Date: 2019-03-18 Test Time: 20:31:16 Pat Name: CARLOTTA PIEDRA Department: Room: [facility] [place] [facility] [place] Gender: M Mental Health Nurse: AJ : 1950 Requested By: Daniel Guerrero Order Number: [id number] MD: Cliff Brown Measurements Intervals [place] Rate: 85 P: 53 MN: 143 QRS: 35 QRSD: 95 T: 45 QT: 338 QTc: 402 Interpretive Statements Sinus rhythm Borderline low voltage, extremity leads Compared to ECG 03/13/2019 10:54:26 Atrial fibrillation no longer present Electronically Signed On 03-19-2019 10:56:35 CDT by Cliff Brown [email or web address] <ELECTRONICALLY SIGNED> By: Cliff Brown MD, [facility] 03/19/19 1056 30 30 Cliff Brown MD, [facility] /EPI
--- NOTE | 2019-03-19 11:08 | NUR ---
Pt is A&O. Known to this CM from previous hospital stay. Spoke with via phone. Pt is current with [facility], per , they want Pt to be on [facility] care instead, called and faxed [facility] p:[phone], f:[phone]. Per , Pt had been doing well at home, she believes that he may have over done it, which is why he readmitted to the hospital. No DME. No hx of HH or SNF. Pt continues to decline hospice. Hem/Onc consult placed. Following.
[2019-03-19 11:22] VITALS: BP 119/57
[2019-03-19 15:51] VITALS: BP 116/54
--- NOTE | 2019-03-19 16:30 | NUR ---
WOUND NURSE: PATIENT SEEN TO ADDRESS WOUND ON THE MEDIAL ASPECT OF THE LEFT LOWER LEG AND WOUND MEASURED 0.3 X 0.3 X 0.1 CM; SCANT SEROUS DRAINAGE. PRESENTS A SUPERFICIAL SKIN LESION WITH PARTIAL THICKNESS TISSUE LOSS AT TIME OF THIS ASSESSMENT. WOUND BED PRESENTS A PINKISH RED. THERE IS NO PERIWOUND REDNESS, WARMTH, OR INDURATION. APPLIED LOTION TO INTACT SKIN, THEN APPLIED AQUACEL AG UNDER ABD TO WOUND, THEN WRAPPED WITH KERLEX ROLL GAUZE UNDER VINCE WRAP. DRESSING TO BE CHANGED 3X/WEEK.
--- NOTE | 2019-03-19 17:12 | NUR ---
NO ACUTE CHANGES THROUGHOUT SHIFT. REFER TO CHARTING. PT SLOWLY PROGRESSING TOWARDS GOALS. PT SEEN BY WOUND CARE TODAY- ORDERS RECEIVED AND PICTURES TAKEN. REFER TO CHART. PT COMPLAINED OF GENERALIZED PAIN THROUGHOUT SHIFT. TREATED WITH PRN OXY WITH PARTIAL RELIEF. HEMOC CONSULT IN PLACE. PT RECEIVING IV LASIX- GOOD URINE OUTPT. FENTANYL PATCH INCREASED TO 100 MCG. REFER TO EMAR. PT CONTINUES TO TRACE SR ON THE INTERMODAL DISPATCHER. ON 2L NC SAT UPPER 90'S. DENIES ANY SHORTNESS OF BREATH. PT UP WITH SBA TO BATHROOM. VISITORS AT BEDSIDE THROUGHOUT SHIFT. PT SAT IN CHAIR FOR ALL MEALS, TOLERATED WELL. MEDICATIONS PER NOV. PT REPOSITONS SELF. HOURLY ROUNDING OBSERVED. BED IN LOW POSITION. CALL LIGHT WITHIN REACH. WILL CONTINUE PLAN OF CARE.
[2019-03-19 20:00] VITALS: BP 114/47
[2019-03-20] VITALS: BP 127/63
[2019-03-20 04:00] VITALS: BP 134/66
--- NOTE | 2019-03-20 04:39 | NUR ---
ASSUMED PT CARE AT 1930. ASSESSMENT COMPLETED CHARTED. ABLE TO MAKE NEEDS KNOWN. UP WITH STANDBY ASSIST TO BATHROOM. PT PLEASENT WITH STAFF AND APPOLOGIZED TO THIS NURSE FOR YESTERDAY'S FRUSTRATION. C/O GENERALIZED PAIN AND GAVE PRN OXY PER NOV. PT RESTING IN RECLINER AT THIS TIME. VSS. WILL CONTINUE TO MONITOR.
[2019-03-20 04:45] LABS: HEMATOCRIT 27.6 % (42.0-52.0); HEMOGLOBIN 9.3 gm/dL (14.0-18.0); MCHC 33.6 g/dL (28.0-37.0); MCV 110.1 fL (80.0-100.0); MPV 8.3 fl. (7.2-11.1); RBC 2.51 mil/uL (4.50-6.00); RDW-CV 21.9 % (10.5-14.5); WBC 7.1 thou/uL (4.0-11.0)
[2019-03-20 05:06] LABS: ALBUMIN 2.4 g/dL (3.4-5.0); CALCIUM 9.3 mg/dL (8.5-10.1); CREATININE 0.9 mg/dL (0.6-1.3); MAGNESIUM 2.1 mg/dL (1.8-2.4); POTASSIUM 4.6 mmol/L (3.5-5.1); TOTAL BILIRUBIN 0.7 mg/dL (<0.1-1.0); TOTAL PROTEIN 6.8 g/dL (6.4-8.2)
[2019-03-20 07:30] VITALS: BP 122/63
--- NOTE | 2019-03-20 10:34 | NUR ---
GASPER contacted [facility] to check status of palliative referral faxed yesterday, GASPER spoke with Ousmane at [facility], he informed that referrals take 3-5 days to process, GASPER asked that [facility] contact Pt/ upon completion of processing. Following.
[2019-03-20 11:24] VITALS: BP 102/62
[2019-03-20 15:56] VITALS: BP 114/55
[2019-03-20 20:00] VITALS: BP 114/57
[2019-03-21] VITALS: BP 129/66
[2019-03-21 04:00] VITALS: BP 135/64
--- NOTE | 2019-03-21 04:14 | NUR ---
ASSUMED PT CARE AT 1930. ASSESSMENT COMPLETED CHARTED. ABLE TO MAKE NEEDS KNOWN. UP WITH STANDBY ASSIST. C/O GENERALIZED PAIN AND GAVE PRN PAIN MEDICATION PER EMAR. PT RESTING IN BED AT THIS TIME. VSS. WILL CONTINUE TO MONITOR.
[2019-03-21 05:35] LABS: CALCIUM 9.2 mg/dL (8.5-10.1); CREATININE 0.9 mg/dL (0.6-1.3); POTASSIUM 4.7 mmol/L (3.5-5.1)
[2019-03-21 10:50] VITALS: BP 121/54
[2019-03-21 11:30] VITALS: BP 125/62
[2019-03-21 16:30] VITALS: BP 129/68
--- NOTE | 2019-03-21 18:12 | NUR ---
ASSUMED PT CARE AT 729, FULL ASSESMENT DONE CHARTED. PT A/O X4, C/O CHRONIC GENERALZED PAIN. MEDS GIVEN PER NOV. PTS VSS, SR ON THE MONITOR. DRESSING TO LEFT LE C/D/I, PT SITTING IN CHAIR MOST OF THIS SHIFT. LE 2-3+ PITTING EDEMA. ON RA. UP AD FELICITAS. GOOD APITITE. USES CALL LIGHT FOR NEEDS APPROPRIATLY. REVIEWED PLAN OF CARE WITH PT AND .
--- NOTE | 2019-03-21 18:21 | NUR ---
SPOKE TO DR SUMNER RE: SCRIPTS FOR PAIN MEDS ON DISCHARGE. STATES HE WILL SEE PT IN THE AM ON 03/22/19 TO WRITE SCRIPTS.
--- NOTE | 2019-03-21 22:10 | CON ---
[address] [address] CONSULTATION Name: CARLOTTA PIEDRA Room: [address] IN M.R.#: [id number] Admission: 03/18/19 Attend Phys: Rogelio Love MD Discharge: Date of : 54 Report #: [id number] THIS REPORT FOR: //name// CC: Rogelio Dorman [place] DATE OF SERVICE: 03/20/2019 The patient was seen on 03/19/2019. This is a late entry documentation. HISTORY OF PRESENT ILLNESS: A 69-year-old male well known to the service, who has been on second line treatment for hepatocellular carcinoma with cirrhosis with Keytruda. The patient has been on fentanyl patch in addition to oxycodone at home; however, palliative care when the patient had a flare-up of his pain, whole body associated with the swelling of his lower extremities despite oral Lasix. The patient contacted palliative care nurse and he was advised to go to the emergency room. He continues to be on 75 mcg fentanyl patch in addition to 10 mg of oxycodone. By the time of evaluation late yesterday evening, the patient has been on IV p.r.n. fentanyl in addition to that he received IV Lasix and Aldactone. I discussed with the patient whether he would like to continue with the treatment and he said that he would like to proceed with treatments with a second dose of Keytruda once his pain is controlled. REVIEW OF SYSTEMS: All systems were reviewed. It was negative except the above. PAST MEDICAL HISTORY: Hepatocellular carcinoma, currently on second line immunotherapy, COPD, liver cirrhosis, AFib, chronic venous insufficiency, and peripheral vascular disease. 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 SOCIAL HISTORY: He is a former smoker, smoked 1 pack per day for many years. Drinks 12 packs of beer at night. FAMILY HISTORY: Noncontributory. MEDICATIONS: Per admission list. ALLERGIES: Per records SWEET POTATO. PHYSICAL EXAMINATION: VITAL SIGNS: Today, temperature 36.5, pulse 70, respirations 18, [place] [address] CONSULTATION Name: CARLOTTA PIEDRA Room: [address] IN [facility]#: [id number] Admission: 03/18/19 Attend Phys: Rogelio Love MD Discharge: Date of : 54 Report #: [id number] pressure is 134/66. SpO2 was 98% on room air. GENERAL: The patient was sitting in chair, was not in acute distress. LUNGS: Decreased breathing sounds bilaterally. HEART: Regular rate and rhythm. S1, S2 within normal limits. ABDOMEN: Soft, nontender, nondistended, bowel sounds positive. EXTREMITIES: The patient had stockings and around his lower extremities wrapped dressing. LABORATORY DATA: Today, WBC 7.1, hemoglobin 9.3, and platelets 492. PT is 10.7, PTT 28.8, bilirubin 0.7, AST 21, alkaline phosphatase is 48, and bilirubin is 2.4. IMAGING: Chest x-ray showed a stable prominence of interstitial lung markings. ASSESSMENT: A 69-year-old male who has been diagnosed with a hepatocellular carcinoma. The patient was admitted because of uncontrolled pain. However, at this point, his dose has been adjusted. He is receiving IV fentanyl as needed in addition to that he received Lasix and Aldactone. RECOMMENDATIONS: Agree with the current management in addition of increasing his fentanyl dose. Agree with switching palliative company for the patient's dissatisfaction. We will continue to follow up the patient during hospitalization and follow up on his clinical condition. <ELECTRONICALLY SIGNED> By: My Peguero MD 03/21/19 2210 0936 1007Mokyle Peguero MD /nt
[2019-03-22] VITALS: BP 122/59
[2019-03-22 04:00] VITALS: BP 130/66
[2019-03-22 04:50] LABS: CREATININE 0.8 mg/dL (0.6-1.3); POTASSIUM 4.8 mmol/L (3.5-5.1)
--- NOTE | 2019-03-22 05:09 | NUR ---
PT SLEPT ON AND OFF THIS SHIFT. ASSESSMENT DOCUMENTED. MEDS GIVEN PER E-MAR. PORT PATENT. PAIN MEDS GIVEN PER E-MAR WITH SOME RELIEF. PT UP IN RECLINER TO SLEEP PART SHIFT PATIENT STATES HE CANNOT BREATH WHEN HE LAYS DOWN. 2.5 L NC PLACED ON PATIENT WHILE SLEEPING TO KEEPS SATS OVER 90%. WILL CONTINUE WITH PLAN OF CARE.
[2019-03-22 07:57] VITALS: BP 121/62
[2019-03-22] MEDS ORDERED: LIDODERM1 EACH TRANSDERM (10:13)
[2019-03-22] MEDS ORDERED: LASIX 40 MG TAB40 M1 PO (10:13)
[2019-03-22] MEDS ORDERED: GABAPENTIN 100100 MG PO (10:13)
[2019-03-22] MEDS ORDERED: OXYCODONE HCL15 MG PO (10:13)
[2019-03-22] MEDS ORDERED: CELEXA 20 MG TA20 MG PO (10:13)
[2019-03-22] MEDS ORDERED: DURAGESIC1 EAC3 TRANSDERM (10:13)
[2019-03-22] MEDS ORDERED: SPIRONOLACTONE25 MG PO ×2 (10:13→10:14)
[2019-03-22 11:13] VITALS: BP 121/62
--- NOTE | 2019-03-22 11:32 | NUR ---
ASSUMED CARE OF PT AROUND 0730 THIS AM. REFER TO ASSESSMENT. PT GIVEN ORDERS TO DC HOME. ONCOLOGISTS GAVE SCRIPTS FOR NARCOTICS. PT STATES HE WILL HAVE A RIDE HERE AROUND 1:00 PM. HOME HEALTH SET UP BY CASE MANAGEMENT. NO OTHER CONCERNS AT THIS TIME. CLWR. WCTM.
--- NOTE | 2019-03-22 11:36 | NUR ---
Following for d/c planning needs. Per previous CM note, referral had been sent to [facility]. Called [facility] this morning and was told that they are not in network with pt's insurance in [place]. Spoke with pt and spouse and they are in agreement with home health. They are not ready for hospice at this time. [facility] choice [facility]. Called [facility] and they are not in network with patient's insurance. Called [facility] and they do not have adequate staff for pt's area. Called [facility] and faxed referral. They have agreed to accept pt and will call to schedule appointment. Called spouse and she is in agreement with plans for [facility]. No other needs identified.
--- NOTE | 2019-03-22 12:47 | NUR ---
PT GIVEN DC INSTRUCTIONS AND VERBALIZES UNDERSTANDING. NO OTHER CONCERNS AT THIS TIME.
== END 2019-03-22 12:42 | disposition home health service (06) | DRG 432 ==
LOC: M.ERS 20:22 → M.TBA-ER 21:38 → M.2W 21:38
PROVIDERS: Family Medicine; Internal Medicine; ADMIT Internal Medicine
DX: K74.60 Unspecified cirrhosis of liver (principal); K76.7 Hepatorenal syndrome; J44.1 Chronic obstructive pulmonary disease with (acute) exacerbation; C22.0 Liver cell carcinoma; I48.0 Paroxysmal atrial fibrillation; I73.9 Peripheral vascular disease, unspecified; B19.20 Unspecified viral hepatitis C without hepatic coma; F32.9 Major depressive disorder, single episode, unspecified; Z51.5 Encounter for palliative care; I87.2 Venous insufficiency (chronic) (peripheral); Z95.820 Peripheral vascular angioplasty status with implants and grafts; Z79.82 Long term (current) use of aspirin; Z79.899 Other long term (current) drug therapy; Z90.49 Acquired absence of other specified parts of digestive tract; Z91.018 Allergy to other foods; Z87.891 Personal history of nicotine dependence; Z79.891 Long term (current) use of opiate analgesic

== ENCOUNTER 2019-04-06 18:36 | Inpatient (IN) | payer OTHER ==
[~2019-04-06] VITALS: Ht 180.3 cm; Wt 96.3 kg
[~2019-04-06 18:36] MED LIST changes: +CELEXA 20 MG TA20 MG PO; +DURAGESIC1 EAC3 TRANSDERM; +LASIX 40 MG TAB40 M1 PO; +LIDODERM1 EACH TRANSDERM; +OXYCODONE HCL15 MG PO; +SPIRONOLACTONE25 MG PO
[2019-04-06 18:44] VITALS: BP 115/56
[2019-04-06] MEDS ORDERED: LASIX 80 MG TAB80 MG PO ×2 (18:52→21:41)
[2019-04-06 19:01] LABS: HEMATOCRIT 26.8 % (42.0-52.0); HEMOGLOBIN 9.1 gm/dL (14.0-18.0); MCH 36.6 pg (26.0-34.0); MCV 107.5 fL (80.0-100.0); MPV 7.9 fl. (7.2-11.1); NUCLEATED RBCS 1 /100WBC; PLATELET COUNT* 509 thou/uL (150-400); RBC 2.49 mil/uL (4.50-6.00); RDW-CV 21.8 % (10.5-14.5); WBC 9.8 thou/uL (4.0-11.0)
[2019-04-06 19:08] LABS: ANION GAP 7 mmol/L (7-16); BUN 19 mg/dL (7-18); CALCIUM 8.7 mg/dL (8.5-10.1); CHLORIDE 91 mmol/L (98-107); CO2 30 mmol/L (21-32); CREATININE 1.2 mg/dL (0.6-1.3); GLUCOSE 98 mg/dL (70-99); POTASSIUM 4.2 mmol/L (3.5-5.1); SODIUM 128 mmol/L (136-145)
[2019-04-06 19:14] LABS: APTT 28.5 Seconds (25.0-31.3); INR 1.1; PROTIME 11.4 Seconds (9.20-11.50)
[2019-04-06 19:19] LABS: ABSOLUTE BASOPHILS 0.1 thou/uL (0.0-0.2); ABSOLUTE LYMPHOCYTES 1.2 thou/uL (0.8-5.3); ABSOLUTE MONOCYTES 0.5 thou/uL (0.0-1.2); ALBUMIN 2.3 g/dL (3.4-5.0); ALKALINE PHOSPHATASE 98 U/L (46-116); LIPASE 36 U/L (73-393); NT-PRO BRAIN NAT PEPTIDE 9325 pg/mL (<300); PLATELET ESTIMATE INCREASED; SGOT 21 U/L (15-37); SGPT 35 U/L (30-65); TOTAL BILIRUBIN 1.3 mg/dL (<0.1-1.0); TOTAL PROTEIN 6.7 g/dL (6.4-8.2); TROPONIN-I LEVEL <0.06 ng/mL (<0.06)
[2019-04-06 19:20] LABS: ANISOCYTOSIS 1+; MACROCYTES 1+
[2019-04-06 19:47] LABS: URINE BLOOD NEGATIVE (Negative); URINE CLARITY CLEAR; URINE COLOR YELLOW; URINE GLUCOSE-RANDOM NEGATIVE (Negative); URINE KETONES NEGATIVE (Negative); URINE LEUKOCYTES-REFLEX NEGATIVE (Negative); URINE NITRITE-REFLEX NEGATIVE (Negative); URINE PROTEIN TRACE (Negative)
[2019-04-06 19:49] LABS: ICTOTEST (BILI CONFIRMATORY) Negative (Negative); URINE BILIRUBIN 1+ (Negative)
[2019-04-06 20:52] VITALS: BP 114/53
[2019-04-06 21:30] VITALS: BP 117/54
[2019-04-06] MEDS ORDERED: OXYCODONE HCL15 MG PO (21:44)
[2019-04-07] VITALS: BP 114/49
[2019-04-07 04:00] VITALS: BP 107/56
--- NOTE | 2019-04-07 05:21 | NUR ---
RECEIVED REPORT FROM ED RN. PT TRANSFERRED TO 211. PT A&OX4. VSS. PROFESSOR OF ENVIRONMENTAL STUDIES IN PLACE. ADMISSION HISTORY & PHYSICAL ASSESSMENT COMPLETED AND CHARTED. FALL FORM SIGNED. ORIENTED TO ROOM & CALL LIGHT. PT ON O2 AT 2L NC. PT TRACING AFLUTTER ON TELE. PT COMPLAINED OF BILATERAL LEG PAIN & REQUESTED TO RESUME HIS HOME PAIN MEDS- DR TORRES INFORMED WITH NEW ORDERS. PT UPSTANDBY FROM BED TO RECLINER. ACCESSED IMPLANTED POWER PORT PER DRS ORDER. PT WITH WOUND ON HIS LEFT LEG CLEANED & PAT DRY. PHOTOGRAPH TAKEN. COVERED WITH FOAM DRESSING. DENIES ANY CHEST PAIN. CALL LIGHT WITHIN REACH.
[2019-04-07 08:00] VITALS: BP 102/59
--- NOTE | 2019-04-07 10:14 | NUR ---
ASSUMED CARE OF PATIENT THIS AM AT 0730. PATIENT IS ALERT AND ORIENTED X 4. HE C/O PAIN IN HIS LEGS BILATERALLY. PATIENT HAS 4+ LE EDEMA. TELE SHOWS A FLUTTER. PATIENT MEDICATED FOR PAIN THIS AM. CARDIOLOGY IN TO SEE PATIENT AND DIET RELEASED FOR TODAY. HE IS UP IN THE CHAIR AT THIS TIME. NO C/O CHEST PAIN. O2 SATS WNL. IV LASIX GIVEN. WILL MONITOR I&OS.
[2019-04-07 11:31] VITALS: BP 100/52
[2019-04-07 13:16] LABS: POTASSIUM 4.2 mmol/L (3.5-5.1)
[2019-04-07 13:24] LABS: CALCIUM 9.3 mg/dL (8.5-10.1); CREATININE 1.1 mg/dL (0.6-1.3)
[2019-04-07 16:00] VITALS: BP 107/43
[2019-04-07 20:00] VITALS: BP 112/62
[2019-04-07] MEDS ORDERED: SENNA8.6 MG PO (20:21)
[2019-04-08] VITALS: BP 113/53
[2019-04-08 04:00] VITALS: BP 103/56
[2019-04-08 04:53] LABS: HEMATOCRIT 26.1 % (42.0-52.0); HEMOGLOBIN 8.6 gm/dL (14.0-18.0); MCH 36.1 pg (26.0-34.0); MCV 109.4 fL (80.0-100.0); RBC 2.38 mil/uL (4.50-6.00); RDW-CV 21.8 % (10.5-14.5); WBC 6.9 thou/uL (4.0-11.0)
[2019-04-08 05:11] LABS: ALBUMIN 2.3 g/dL (3.4-5.0); CALCIUM 8.7 mg/dL (8.5-10.1); MAGNESIUM 2.2 mg/dL (1.8-2.4); POTASSIUM 4.2 mmol/L (3.5-5.1); TOTAL BILIRUBIN 1.1 mg/dL (<0.1-1.0); TOTAL PROTEIN 6.7 g/dL (6.4-8.2)
--- NOTE | 2019-04-08 05:23 | NUR ---
ASSUMED CARE OF PT AFTER REPORT AT 1930. PT A&OX4. VSS. PHYSICAL ASSESSMENT COMPLETED AND CHARTED. PT ON O2 AT 2L NC. PT TRACING AFLUTTER ON TELE. PT UPSTANDBY. PT COMPLAINED OF BILATERAL LEG PAIN- MEDS GIVEN EPR NOV. PT ABLE TO SLEEP ON THE RECLINER. CALL LIGHT WITHIN REACH.
[2019-04-08 07:50] VITALS: BP 105/61
[2019-04-08 11:15] VITALS: BP 113/56
[2019-04-08 15:59] VITALS: BP 107/61
--- NOTE | 2019-04-08 19:34 | NUR ---
RECEIVED REPORT AND ASSUMED CARE AT 0700. VSS. CARDIAC MONITORING IN PLACE. PT REPORTS PAIN, PRN MEDICATION ADMIN PER ORDERS. ASSESSMENT COMPLETED CHARTED, DISCUSSED PLAN OF CARE. VERBALIZED UNDERSTANDING. PT TO HAVE STRESS TEST 04/09/19. NO CAFFEINE/ CHOCOLATE 24HRS PRIOR TO TEST. MEDICATION ADMIN PER ORDERS. OINTMENT/BANDAGE/WRAP APPLIED TO R LEG PER ORDERS. PT UP AD FELICITAS IN ROOM, ON 2L. BED LOCKED IN LOWEST POSITION, CALL LIGHT WITHIN REACH.NO ACUTE CHANGES THROUGH THE NIGHT. HOURLY ROUNDING COMPLETED AND ALL NEEDS MET
[2019-04-08 20:00] VITALS: BP 108/52
[2019-04-09 00:39] VITALS: BP 122/61
[2019-04-09 04:00] VITALS: BP 132/65
[2019-04-09 04:52] LABS: HEMATOCRIT 26.3 % (42.0-52.0); HEMOGLOBIN 8.9 gm/dL (14.0-18.0); MCH 36.5 pg (26.0-34.0); MCHC 33.8 g/dL (28.0-37.0); MPV 8.5 fl. (7.2-11.1); RBC 2.44 mil/uL (4.50-6.00); RDW-CV 21.7 % (10.5-14.5); WBC 8.1 thou/uL (4.0-11.0)
[2019-04-09 05:11] LABS: ALBUMIN 2.3 g/dL (3.4-5.0); CALCIUM 8.7 mg/dL (8.5-10.1); CREATININE 1.3 mg/dL (0.6-1.3); POTASSIUM 4.9 mmol/L (3.5-5.1); TOTAL BILIRUBIN 1.2 mg/dL (<0.1-1.0); TOTAL PROTEIN 6.7 g/dL (6.4-8.2)
[2019-04-09 05:44] LABS: MAGNESIUM 2.2 mg/dL (1.8-2.4)
--- NOTE | 2019-04-09 05:46 | NUR ---
ASSUMED CARE OF PT AFTER REPORT AT 1930. PT A&OX4. VSS. PHYSICAL ASSESSMENT COMPLETED AND CHARTED. PT ON O2 AT 2L NC. PT TRACING AFLUTTER ON TELE. PT UPADLIB. PT COMPLAINED OF BILATERAL LEG PAIN- MEDS GIVEN PER NOV. INSTRUCTED ON NPO POST MIDNIGHT FOR STRESS TEST TODAY. PT ABLE TO SLEEP WELL ON THE RECLINER. CALL LIGHT WITHIN REACH.
[2019-04-09 11:26] LABS: CALCIUM 8.9 mg/dL (8.5-10.1); CREATININE 1.4 mg/dL (0.6-1.3)
[2019-04-09 11:46] VITALS: BP 95/44
--- NOTE | 2019-04-09 12:14 | NUR ---
Pt is A&O. Resides at home with his . Known to this CM from previous hospital stays. Pt was recently dc to home on 03/22 with [facility], plans to resume HH at [place]. Referral will need to be faxed to [phone] p:[phone]. Pt is independent. Has a walker and cane that he can use if needed. No hx of SNF. Hx of [facility]. Following for dc needs.
[2019-04-09 16:00] VITALS: BP 120/51
[2019-04-09 16:01] VITALS: BP 120/51; BP 130/104
--- NOTE | 2019-04-09 17:38 | NUR ---
PATIETN SEEN TO ADDRESS LESION ON THE LLE MEDIAL ANKLE WHICH PRESENTS A LINEAR SUPERFICIAL LESION PINK AND MOIST IN COLOR AND MEASURING 3.0 X 1.5 X 0.1 CM. DRAINING MODERATE AMOUNT OF YELLOW DRAINAGE. CONTAINS 3+ PITTING EDEMA IN BLE. ANTERIOR DORSAL FOOT WITH CLOSE LESION COMPRISED OF [place], NONBLANCHEABLE SKIN, INDICATIVE THE RESULT OF CREASE IN COMPRESSION STOCKING. CLEANSED BLE WITH SOAP AND WATER, RINSED, THEN PATTED DRY. APPLIED LOTION TO INTACT SKIN TOES TO KNEE. APPLIED AQUACEL AG UNDER ABD TO LEFT MEDIAL ANKLE WOUND, APPLIED ABD TO DORSUM OF FOOT FOR PROTECTION PRIOR TO APPLYING 4 LAYER COMPRESSION. APPLIED XEROFORM GAUZE UNDER ABD TO MACERATED SKIN ON THE RIGHT POSTERIOR CALF AND WHICH MEASURED APPROX 7.0 X 10.0 CM. LOTION APPLIED TO INTACT SKIN TO BLE THEN BLE WRAPPED WITH 4 LAYER COMPRESSION WRAP. THIS WAS TOLERATED WELL BY THE PATIENT.
[2019-04-09 20:00] VITALS: BP 113/54
[2019-04-10 00:27] VITALS: BP 135/65
[2019-04-10 04:09] VITALS: BP 116/57
--- NOTE | 2019-04-10 05:58 | NUR ---
ASSUMED CARE OF PT AFTER REPORT AT 1930. PT A&OX4. VSS. PHYSICAL ASSESSMENT COMPLETED AND CHARTED. PT ON RA. PT TRACING AFLUTTER ON TELE. PT UPADLIB TO RESTROOM. PT COMPLAINED OF BILATERAL LEG PAIN- MEDS GIVEN PER NOV. REMINDED PT ON 1500 FLUID RESTRICTION. COMMUNICATES UNDERSTANDING. PT ABLE TO SLEEP WELL ON THE RECLINER. CALL LIGHT WITH REACH.
[2019-04-10 08:00] VITALS: BP 109/57
[2019-04-10 11:49] VITALS: BP 107/53
[2019-04-10 12:36] LABS: CREATININE 1.4 mg/dL (0.6-1.3); POTASSIUM 5.1 mmol/L (3.5-5.1)
[2019-04-10 15:07] LABS: URIC ACID* 6.9 mg/dL (2.6-7.2)
[2019-04-10 15:49] VITALS: BP 120/59
--- NOTE | 2019-04-10 16:19 | NUR ---
PT A&O X4. VSS. A-FLUTTER ON THE MONITOR. UP AD FELICITAS. TOLERATING DIET. NEPHRO CONSULTED. NS STARTED AT 50 MLS/HR PER NEPHRO. BM TODAY. PAIN CONTROLLED WITH MEDS PRN.
[2019-04-10 20:00] VITALS: BP 126/55
[2019-04-11 00:09] VITALS: BP 133/62
[2019-04-11 04:30] VITALS: BP 129/63
--- NOTE | 2019-04-11 04:47 | NUR ---
ASSUMED CARE OF PT AFTER REPORT AT 1930. PT A&OX4. VSS. PHYSICAL ASSESSMENT COMPLETED AND CHARTED. PT ON RA. PT TRACING AFLUTTER ON TELE. PT UPADLIB TO RESTROOM. STARTED ON LASIX DRIP ORDERED. PT COMPLAINED OF BILATERAL LEG PAIN- MEDS GIVEN PER MAR. PT ABLE TO SLEEP WELL ON THE RECLINER. CALL LIGHT WITHIN REACH.
[2019-04-11 07:07] LABS: HEMATOCRIT 28.3 % (42.0-52.0); HEMOGLOBIN 9.5 gm/dL (14.0-18.0); MCHC 33.7 g/dL (28.0-37.0); MCV 106.7 fL (80.0-100.0); MPV 7.7 fl. (7.2-11.1); RBC 2.65 mil/uL (4.50-6.00); WBC 6.5 thou/uL (4.0-11.0)
[2019-04-11 07:14] LABS: CALCIUM 9.1 mg/dL (8.5-10.1); CREATININE 1.2 mg/dL (0.6-1.3); MAGNESIUM 2.1 mg/dL (1.8-2.4); POTASSIUM 4.6 mmol/L (3.5-5.1)
[2019-04-11 08:00] VITALS: BP 123/59
[2019-04-11 11:50] VITALS: BP 123/61
--- NOTE | 2019-04-11 12:00 | NUR ---
ASSUMED PT CARE AT 729, PT A/O X4, UP IN CHAIR, C/O SWOLLEN SCROTUM AND BILAT LE'S. PT ENCOURAGED TO ELEVATE LEGS MUCH POSSIBLE. PT ASSISTED WITH ELEVATED LEGS IN CHAIR. BILAT LE'S WRAPPED WITH 4 LAYER COMPRESSION. PT C/O PAIN IN BACK/LEGS, MEDS GIVEN PER NOV. VSS, AFLUTTER ON MONITOR. PT CALLS APPROPRIATE FOR NEEDS. PT EDUCATED ON FLUID RESTRICTION AND PLAN OF CARE. PT VERBALIZED UNDERSTANDING. WILL CONTINUE WITH PLAN OF CARE.
[2019-04-11 12:09] LABS: AMIODARONE 0.4 ug/mL (1.0-2.5); DESETHYLAMIODARONE 0.3 ug/mL (1.0-2.5)
--- NOTE | 2019-04-11 12:16 | NUR ---
Spoke with , anticipate dc in 1-2 days, Pt continues on Lasix drip. [facility]. Following.
--- NOTE | 2019-04-11 13:33 | NUR ---
PER NEPHROLOGY, ALEXA TREVIZO DC'D, CONTINUE TO MONITOR SODIUM.
--- NOTE | 2019-04-11 14:32 | NUR ---
WOUND NURSE - PATIENT SITTING UP IN CHAIR WITH LEGS DEPENDENT - REINFORCED IMPORTANCE OF KEEPING LEGS ELEVATED. COMPRESSION WRAPS REMOVED, BOTH FEET AND LEGS CLEANSED WELL IN BASINS OF WATER WITH SKIN CLEANSER, RINSED WELL, PATTED DRY, MOISTURIZER APPLIED AND DRESSINGS REAPPLIED - XEROFORM TO RIGHT POSTERIOR CALF AND AQUACEL AG (LIGHTLY MOISTENED WITH SALINE) ON LEFT. RIGHT FOOT 25.5 CM, ANKLE 23.5 CM & CALF 44 CM. LEFT FOOT 26 CM, ANKLE 24 CM & CALF 40.5 CM. RIGHT POSTERIOR CALF WITH LARGE MACERATED AREA, BUT NO OPEN WOUNDS. LEFT MEDIAL ANKLE AREA WITH SUPERFICIAL ULCERATION 5 X 1.2 CM AND ADJACENT SMALL ULCERATION ON ANTERIOR ANKLE AREA, 0.8 X 0.4 CM. PATIENT WILL RESUME APPTS AT [facility] AFTER DISCHARGE.
[2019-04-11 15:45] VITALS: BP 102/47
--- NOTE | 2019-04-11 18:22 | NUR ---
PT NOT PROGRESSING TOWARD GOALS. SITTING IN CHAIR ALL DAY. DISCUSSED MULTIPLE TIMES ELEVATING LEGS IF STAYING IN CHAIR. PT VERBALIZES UNDERSTANDING BUT PUTS LEGS BACK DOWN AFTER A WHILE. PT VOIDING PER URINAL, MONITORING I&O CLOSELY. LASIX GTT AND FLUIDS DC'D TODAY. PT REQUESTING PAIN MEDS FREQUENTLY. WOUND CARE CHANGED BILAT LE DRESSINGS. PT EDUCATED ON FLUID RESTRICTION. NEEDS REENFORCEMENT. REMIANS AFLUTTER ON THE MONITOR. WILL CONTINUE TO MONITOR.
[2019-04-11 20:00] VITALS: BP 116/50
[2019-04-12] VITALS: BP 148/52
[2019-04-12 04:06] VITALS: BP 123/56
[2019-04-12 05:14] LABS: HEMATOCRIT 26.6 % (42.0-52.0); HEMOGLOBIN 9.4 gm/dL (14.0-18.0); MCH 37.2 pg (26.0-34.0); MCHC 35.2 g/dL (28.0-37.0); MCV 105.9 fL (80.0-100.0); RBC 2.51 mil/uL (4.50-6.00); RDW-CV 21.3 % (10.5-14.5); WBC 7.3 thou/uL (4.0-11.0)
--- NOTE | 2019-04-12 05:26 | NUR ---
ASSUMED CARE OF PT AFTER REPORT AT 1930. PT A&OX4. FORGETFUL. VSS. PHYSICAL ASSESSMENT COMPLETED AND CHARTED.PT ON RA. PT TRACING AFLUTTER ON TELE. PT UPADLIB TO RESTROOM. PT COMPLAINED OF BILATERAL LEG PAIN- MEDS GIVEN PER MAR. PT ABLE TO SLEEP WELL ON THE RECLINER. PT STILL WITH BLE EDEMA-REMINDED PT TO ELEVATE LEGS. CALL LIGHT WITHIN REACH.
[2019-04-12 05:27] LABS: CALCIUM 9.3 mg/dL (8.5-10.1); CREATININE 1.2 mg/dL (0.6-1.3); MAGNESIUM 2.1 mg/dL (1.8-2.4); POTASSIUM 4.1 mmol/L (3.5-5.1)
[2019-04-12 08:13] VITALS: BP 126/57
[2019-04-12 11:41] VITALS: BP 121/54
[2019-04-12 15:57] VITALS: BP 124/54
[2019-04-12 20:00] VITALS: BP 117/54
--- NOTE | 2019-04-12 20:00 | NUR ---
RECEIVED REPORT AND ASSUMED CARE OF PT, ASSESSMENT COMPLETED. PT RESTING IN RECLINER CHAIR. ENCOURAGED TO SHIFT WEIGHT TO CHANGE PRESSURE AREAS. PT C/O PAIN WITH SCROTAL EDEMA. ABD, SCROTUM AND RANDOLPH LEGS WITH ASCITES/4+ EDEMA. FOOT OF CHAIR ELEVATED. TELEMETRY ON SHOWING A-FLUTTER. WILL CONT TO MONITOR AND ASSIST NEEDED.
[2019-04-13] VITALS: BP 117/56
[2019-04-13 03:50] VITALS: BP 117/57
--- NOTE | 2019-04-13 06:39 | NUR ---
REMAINS UP IN RECLINER ALL NIGHT. OCC STANDS TO STRETCH AND TO VOID. PO PAIN MEDS GIVEN WHEN TIME ALLOWS. DENIES NAUSEA. ASSESSMENT UNCHANGED. TELEMETRY CONT TO SHOW A-FLUTTER. HS GOALS OF REST AND SAFETY ACHIEVED. HOURLY ROUNDING OBSERVED.
[2019-04-13 08:00] VITALS: BP 122/57
[2019-04-13 09:58] LABS: CALCIUM 8.5 mg/dL (8.5-10.1)
[2019-04-13 11:07] VITALS: BP 114/56
--- NOTE | 2019-04-13 12:30 | NUR ---
Nutrition: Pt admitted with heart failure. H/o cancer/chemo, on Keytruda currently. 40# loss d/t cancer. Currently with ascites, 4+ edema, possible paracentesis needed. Wt stable since last admit, ~210#. Heart Healthy diet, 1500mL fluid restriction. BG 102, albumin 2.3, prealbumin 13.9. No nutrition interventions needed at this time. Pt is at moderate nutrition risk. Will follow up per protocol, 04/18/19.
--- NOTE | 2019-04-13 18:11 | NUR ---
WOUND NURSE: PATIENT SEEN TO REDRESS BLE WITH COMPRESSION WRAPS AND PROVIDE CARE OF RIGHT CALF AND LEFT MEDIAL ANKLE AND CREASE OF ANKLE LESION. RIGHT CALF AREA HAS SUBSEQUENTLY DRIED OUT AND THERE IS MODERATE AMT OF SEROUS DRAINAGE FROMT HE LEFT MEDIAL ANKLE AND ANTERIOR CREASE. ANKLE PRESENTS WITH PINK PARTIAL THICKNESS TISSUE LOSS, CRANDALL THIN ESCHAR REMAINS COVERING LESION ON ANKLE CREASE. CLEANSED WITH SOAP AND WATER, RINSED WITH WATER, THEN PATTED DRY. APPLIED AQUACEL AG UNDER ABD TO LEFT ANKLE LESIONS, APPLIED XEROFORM GAUZE TO RIGHT CALF. APPLIED LOTION TO INTACT SKIN, THEN WRAPPED WITH MEDLINE 4 LAYER COMPRESSION WRAP FROM TOES TO KNEE BLE. THIS WAS TOLERATED WELL BY THE PATIENT. PATIENT UNDERSTANDS INSTRUCTION TO CONTINUE TO ELEVATE BLE MUCH POSSIBLE FOR EDEMA CONTROL AND TO PROMOTE HEALING. LEG GIRTH MEASUREMENTS NOT DONE TODAY, BUT SWELLING IS MINIMAL IN BOTH LEGS WITH WRAPS IN PLACE.
[2019-04-13 19:12] VITALS: BP 112/57
[2019-04-13 20:00] VITALS: BP 121/72
[2019-04-14] VITALS: BP 137/73
--- NOTE | 2019-04-14 03:16 | NUR ---
PT DROWSY AROUSED EASILY. ORIENTED X 4. TELEMETRY SHOWS A FLUTTER. SCROTAL EDEMA, UPPER THIGHS 4+ EDEMA. SCROTUM ELEVATED. PT DENIES PAIN. ZOFRAN SCHEDULED. NO VOMITING, ONE BRIEF EPISOID OF NAUSIA.
[2019-04-14 04:00] VITALS: BP 134/86
[2019-04-14 05:11] LABS: HEMOGLOBIN 9.6 gm/dL (14.0-18.0); MCH 36.7 pg (26.0-34.0); MCHC 34.3 g/dL (28.0-37.0); RBC 2.62 mil/uL (4.50-6.00); WBC 7.6 thou/uL (4.0-11.0)
[2019-04-14 05:23] LABS: CALCIUM 8.9 mg/dL (8.5-10.1); CREATININE 1.2 mg/dL (0.6-1.3); MAGNESIUM 2.1 mg/dL (1.8-2.4); POTASSIUM 4.6 mmol/L (3.5-5.1)
[2019-04-14 12:00] VITALS: BP 123/51
--- NOTE | 2019-04-14 12:10 | NUR ---
spoke with Pt and in room, Pt in agreement with a hospice eval/treat, CM faxed referral to [facility] per Pt's request. GASPER spoke with Jorge at [facility], he will contact to set up a time to come out today. Updated nurse. Following.
[2019-04-14 15:15] VITALS: BP 118/52
--- NOTE | 2019-04-14 18:41 | NUR ---
ASSUMED PT CARE AT 0730, FULL ASSESMENT DONE CHARTED. OX4, DROWSY, A LITTLE CONFUSED THIS AM WHEN FIRST AWAKE FORGETTING A CONVERSATION WITH STAFF. PTS VSS, AFLUTTER ON THE MONITOR. BILAT LE DRESSINGS C/D/I, BOTTOM RED BUT BLANCHES, PT REFUSES TO GET IN THE BED, INSISTS ON SITTIN IN CHAIR ALL SHIFT, WAFFLE CUSHION IN PLACE. PT INSTRUCTED TO ELEVATED LEGS MUCH POSSIBLE. PT FREQUENTLY PUTS FEET BACK DOWN AFTER PROPING UP IN RECLINER. SCROTUM STILL SWOLLEN, ELEVATED ON TOWEL IN CHIAR. PTS FLUID INTAKE MONITORED CLOSELY, PT NOT COMPIANT WITH THIS, NEEDS REENFORCEMENT. PT UP AD FELICITAS, RA, USES CALL LIGHT APPROPRIATLY. WILL CONTINUE TO MONITOR.
[2019-04-14 20:00] VITALS: BP 123/56
[2019-04-15] VITALS: BP 118/58
--- NOTE | 2019-04-15 03:35 | NUR ---
PT ALERT, ORIENTED, FORGETFUL. STANDS OCCASIONALY. SITTING IN CHAIR, REFUSING TURNS, TELEMETRY SHOWS AFLUTTER. SCROTAL EDEMA. PAIN MEDICATION GIVEN TWICE.
[2019-04-15 04:00] VITALS: BP 104/59
[2019-04-15 05:54] LABS: CALCIUM 8.9 mg/dL (8.5-10.1); CREATININE 1.5 mg/dL (0.6-1.3); MAGNESIUM 2.1 mg/dL (1.8-2.4); POTASSIUM 4.6 mmol/L (3.5-5.1)
[2019-04-15 08:00] VITALS: BP 162/52
[2019-04-15 11:32] VITALS: BP 105/51
[2019-04-15 15:59] VITALS: BP 113/65
--- NOTE | 2019-04-15 18:41 | NUR ---
assumed pt care at 0730, full assesment done as charted. pt a/o x4, but is forgetful and drowsy at times. pt sitting in chair all shift, waffle cushion in place. pt attempting to void, unable this am, bladder scan done showing approx 450mls retained after voiding 225. pts LE's edemetous 2+, scrotum jesusita edemetous, pt frequently educated to recline if in chair with legs elevated on pillows and towel under scrotum, pt complient with this. pt very unsteady today, chair alarm placed, pt instructed to call for assistance. and pt updated on plan of care. questions answered. pt remains aflutter on monitor. will continue with plan of care.
[2019-04-15 20:00] VITALS: BP 109/51
--- NOTE | 2019-04-15 20:00 | NUR ---
RECEIVED REPORT AND ASSUMED CARE OF PT, ASSESSMENT COMPLETED. PT SLEEPING WHILE IN RECLINER, PT STAYS IN RECLINER EXCEPT TO STAND FOR URINATION AND STRETCHING. RANDOLPH LEGS WITH COMPRESSION WRAPS. ABD WITH ASCITES FLUID, SCROTUM/PENIS WITH 3+ EDEMA, RANDOLPH UPPER LEGS WITH 3+ EDEMA. O2 LOW 88%, NC AT 2L PLACED, SAT 93%. TELEMETRY ON SHOWING A-FLUTTER. WILL CONT TO MONITOR AND ASSIST NEEDED.
[2019-04-16] VITALS: BP 127/52
[2019-04-16 04:00] VITALS: BP 134/65
[2019-04-16 05:02] LABS: CALCIUM 8.7 mg/dL (8.5-10.1); CREATININE 1.7 mg/dL (0.6-1.3); MAGNESIUM 2.1 mg/dL (1.8-2.4); POTASSIUM 4.6 mmol/L (3.5-5.1)
--- NOTE | 2019-04-16 06:36 | NUR ---
SLEPT WELL TONIGHT WHILE IN RECLINER. FLUID RESTRICTION CONT THEN NPO AFTER MN. PO PAIN MED GIVEN X2. DENIES NAUSEA. ASSESSMENT UNCHANGED. TELEMETRY CONT TO SHOW A-FLUTTER. HS GOALS OF REST AND SAFETY ACHIEVED. HOURLY ROUNDING OBSERVED.
[2019-04-16 08:00] VITALS: BP 144/88
--- NOTE | 2019-04-16 09:43 | NUR ---
WOUND NURSE: PATIENT SEEN TO PROVIDE WOUND CARE TO BLE. REMOVED WRAPS AND DRESSINGS, THEN CLEANSED WITH SOAP AND WATER, RINSED WITH WATER, THEN PATTED DRY. APPLIED LOTION TO INTACT SKIN TOES TO KNEE. APPLY XEROFORM GAUZE OVER AREA THAT WAS PREVIOUSLY MACERATED ON RIGHT CALF , BUT IS NOW DRIED OUT AND THIN LAYER OF CRANDALL LEATHERY SKIN COVERING THE AREA -- SOME PEELED AWAY REVEALING INTACT PINK SKIN. THE LEFT MEDIAL LOWER LEG DISTAL ASPECT PRESENTED WITH LINEAR LESION MEASURING 3.0 X 0.3 X 0.1 CM AND CONTAINS MOSTLY EPITHELIAL TISSUE, PIN IN COLOR AND SCANT SEROUS DRAINAGE. THE CREASE OF THE LEFT ANKLE IS FREE OF OPEN WOUND OR DRAINAGE. APPLIED SKIN PREP TO PERIWOUND, THEN APPLIED AQUACEL AG UNDER ABD TO EACH LESION, THEN WRAPPED BOTH LEGS TOES TO KNEE WITH 4 LAYER COMPRESSION WRAPS. THIS WAS TOLERATED WELL BY THE PATIENT. REINSTRUCTED ON ELEVATION OF BLE TO ASSIST IN SWELLING CONTROL. PATIENT STATES HE UNDERSTANDS.
[2019-04-16 12:27] VITALS: BP 104/52
--- NOTE | 2019-04-16 15:29 | NUR ---
ASSUMED PT CARE AT 0800, AOX4, UP WITH ASSIST, O2 SAT 90'S 1L NC. TRACING A FLUTTER ON MONITOR. PT COMPLAINS OF PAIN. MEDS GIVEN. NPO THIS AM FOR PERITONEAL CATH, BEEN MOVE TO TUESDAY. PARACENTESIS CANCELLED, SMALL AMOUNT OF ASCITES SHOW ON US ABDOMEN. AM ASSESSMENT CHARTED, HOURLY ROUNDING, CALL LIGHT WITHIN REACH, WILL CONTINUE TO MONITOR.
[2019-04-16 16:44] VITALS: BP 141/74
[2019-04-16 20:20] VITALS: BP 110/53
[2019-04-17 00:33] VITALS: BP 125/44
[2019-04-17 05:23] VITALS: BP 128/60
--- NOTE | 2019-04-17 05:37 | NUR ---
PT SLEPT ON AND OFF THIS SHIFT. ASSESSMENT DOCUMENTED. MEDS GIVEN PER E-NOV. PORT PATENT. PT HAD SMALL BM THIS SHIFT. PAIN MEDS GIVEN PER E-NOV. PT DID NOT WANT NAUSEA MEDS THIS SHIFT, STATING THAT HE WAS NOT NAUSEATED. PT REMAINED IN RECLINER. WILL CONTINUE WITH PLAN OF CARE.
[2019-04-17 08:00] VITALS: BP 124/46
--- NOTE | 2019-04-17 11:32 | NUR ---
Anticipate dc to home tomorrow with [facility] post pleurex cath. CM updated Jorge with [facility].
--- NOTE | 2019-04-17 14:03 | NUR ---
ASSUMED CARE OF PATIENT THIS AM AT 0730. PATIENT WAS ALERT AND ORIENTED X 4 THIS AM. HE SAID THAT HE HAD HAD DIFFICULTY SLEEPING. PATIENT C/O CONTINUED CHRONIC PAIN. HE HAS INCREASED FLUID FROM CHEST TO TOES. 02 SATS HAVE BEEN WNL. AT 98 TO 100% ON 2 LITERS. PATIENT ASSISTED UP TO THE BSC FOR A BM TODAY. HE CONTINUES ON A FLUID RESTRICTION. DR TORRES NOTIFIED OF DECREASED LOC. PATIENT TO BE STARTED ON LACTOLOSE. TELE SHOWS STABLE AFLUTTER. IS IN AT THE BEDSIDE. WILL CONTINUE TO MONITOR.
[2019-04-17 14:28] VITALS: BP 113/56
[2019-04-17 16:00] VITALS: BP 115/56
[2019-04-17 20:40] VITALS: BP 115/51
[2019-04-18] VITALS: BP 133/63
[2019-04-18 04:00] VITALS: BP 122/56
--- NOTE | 2019-04-18 05:50 | NUR ---
PT SLEPT MOST OF SHIFT. ASSESSMENT DOCUMENTED. MEDS GIVEN PER E-NOV. PORT PATENT. PT A&OX4 AT BEGINING OF SHIFT AND STARTED TO BECOME MORE CONFUSED THROUGH NIGHT. PT STARTED HALLUCINATING THIS MORNING. PT REMAINED IN RECLINER WHILE SLEEPING. PAIN MEDS GIVEN PER E-MAR. PT REMAINED NPO AFTER MIDNIGHT. NO REPORTS OF NAUSEA. WILL CONTINUE WITH PLAN OF CARE.
[2019-04-18 08:00] VITALS: BP 117/57
[2019-04-18] MEDS ORDERED: LASIX 40 MG TAB40 M1 PO (09:21)
[2019-04-18] MEDS ORDERED: LACTULOSE20 GM/30 M PO (09:21)
--- NOTE | 2019-04-18 09:49 | NUR ---
Pt discharging to home today, updated Jorge with [facility] and faxed dc orders.
[2019-04-18 10:25] VITALS: BP 117/57
--- NOTE | 2019-04-18 12:49 | NUR ---
WOUND NURSE: PATIENT SEEN AND PROVIDED WITH WOUND CARE TO BLE. RLE SKIN IS INTACT, CLEANSED WITH SOAP AND WATER, RINSXED WITH WATER, PATTED DRY. APPLIED XEROFORM GAUZE UNDER ABD TO PREVIOUSLY MACERATED AREA OF CALF. WRAPPED WITH 4 LAYER COMPRESSION WRAP. LLE WITH 0.3 X 0.3 X 0.1 CM SUPERFICIAL LESION ON THE MEDIAL ASPECT OF DISTAL LEG. CREASE OF THE ANTERIOR ANKLE WITH DRIED SKIN, BUT YELLOWISH DISCOLORED AREA AT MEDIAL ASPECT. CLEANSED WITH SOAP AND WATER, RINSED, THEN PATTED DRY. BLE PROVIDED WITH LOTION TO INTACT SKIN TOES TO KNEE BLE. APPLIED AQUACEL AG UNDER ABD TO CREASE OF ANKLE AND DISTAL MEDIAL LEG UNDER ABD, THEN WRAPPED WITH 4 LAYER COMRPESSION WRAP. PICTURES WERE TAKEN. PATIENT TO BE DISCHARGING ON HOSPICE LATER TODAY, HOSPICE TO MANAGE DRESSING CHANGES.
--- NOTE | 2019-04-18 13:45 | NUR ---
RECEIVED REPORT FROM MAURICIO PRESTON AND ASSUMED CARE OF PT @ 0611.PT IS A/O X4 BUT FORGETFUL AT TIMES.VSS,TRACING AFLUTTER ON THE MONITOR.PT IS CALM AND COOPERATIVE WITH C/O GENERALIZED PAIN-MEDICATIONS GIVEN.PT OK FOR DISCHARGE.DISCHARGE PAPERWORK COMPLETED AND GIVEN TO THE PT.SCRIPT GIVEN WITH EDUCATION.PORT A CATH REMOVED.HEART MONITOR REMOVED AND RETURNED TO THE NURSING STATION.ALL PERSONAL BELONGINGS PACKED AND TAKEN WITH PT.PT TRANSPORTED BY AMBULANCE TO HOME WITH HOSPICE.
== END 2019-04-18 13:56 | disposition hospice, home (50) | DRG 292 ==
LOC: M.ERS 18:36 → M.TBA-ER 19:39 → M.2W 19:39
PROVIDERS: Emergency Medicine; Internal Medicine; Personal Emergency Response Attendant; ADMIT Internal Medicine
DX: I50.33 Acute on chronic diastolic (congestive) heart failure (principal); E87.1 Hypo-osmolality and hyponatremia; E44.1 Mild protein-calorie malnutrition; I48.92 Unspecified atrial flutter; C22.0 Liver cell carcinoma; N17.9 Acute kidney failure, unspecified; L03.115 Cellulitis of right lower limb; F11.20 Opioid dependence, uncomplicated; K74.60 Unspecified cirrhosis of liver; J44.9 Chronic obstructive pulmonary disease, unspecified; I48.0 Paroxysmal atrial fibrillation; G89.29 Other chronic pain; I73.9 Peripheral vascular disease, unspecified; B19.20 Unspecified viral hepatitis C without hepatic coma; I87.2 Venous insufficiency (chronic) (peripheral); F17.210 Nicotine dependence, cigarettes, uncomplicated; Z51.5 Encounter for palliative care; E87.70 Fluid overload, unspecified; F12.90 Cannabis use, unspecified, uncomplicated; N50.89 Other specified disorders of the male genital organs; Z66 Do not resuscitate; K72.90 Hepatic failure, unspecified without coma; Z68.29 Body mass index [BMI] 29.0-29.9, adult; Z91.018 Allergy to other foods; Z00-Z99 Factors influencing health status and contact with health services; Z79.899 Other long term (current) drug therapy